=== PATIENT | female | born 1945 | race Caucasian/White ===

== ENCOUNTER 2018-02-24 16:53 | Inpatient (IN) | payer MEDICARE, SELFPAY ==
[2018-02-24] VITALS (8 sets, daily range): BP systolic 116–154; BP diastolic 49–72; PULSE 70–83; RESP 18–28; TEMP 36.9–38.4; O2SAT 90–94; BMI 38.4; BMI 37.5
--- NOTE | 2018-02-24 17:10 | EKG12_ITS ---
Test Reason : SOB Blood Pressure : / mmHG Vent. Rate : 070 BPM Atrial Rate : 070 BPM P-R Int : 178 ms QRS Dur : 092 ms QT Int : 388 ms P-R-T Axes : 050 037 038 degrees QTc Int : 419 ms Normal sinus rhythm Nonspecific ST abnormality Abnormal ECG Confirmed by AMY GEE, ALCIRA ([id number]), science editor RAKAN YOO ([id number] on 02/27/2018 2:29:07 PM Referred By: SONIA Confirmed By:ALCIRA REYES MD
--- NOTE | 2018-02-24 17:10 | RAD_ITS ---
STUDY: X-RAY CHEST REASON FOR EXAM: Female, 72 years old. Shortness of breath with weakness and cough. TECHNIQUE: Single frontal view of the chest. COMPARISON: February 24, 2016 FINDINGS: There is stable hyperexpansion with a mild diffuse interstitial pattern. There is no demonstrated pleural abnormality. There is cardiomegaly unchanged. Normal mediastinum and mary kay. Normal visualized pulmonary arteries. There is atherosclerotic calcification of the aortic arch with tortuosity. Normal visualized thoracic spine. Normal visualized ribs, clavicles, and shoulders. There is no demonstrated abnormality of the visualized soft tissue structures of the upper abdomen. RAD/Chest 1 View (Portable) IMPRESSION: No interval change and no new or acute finding. Electronically Signed: Freddy Koehler MD at 17:54 EST , Service support ,
[2018-02-24 17:34] LABS: Absolute Lymphocyte Count 0.57 X10^3/ul (0.83-4.51); Absolute Neutrophil Count 15.2 X10^3/uL (2.0-7.7); Basophil# 0.03 X10^3/uL; Basophil% 0.2 % (0-1); Differential Indicated SCAN CRITERIA MET; Eosinophil# 0.01 X10^3/uL; Eosinophils% 0.1 % (0-5); Hematocrit 30.8 % (37-47); Hemoglobin 10.3 g/dl (12.0-15.0); Lymphocyte # 0.57 X10^3/ul (4.0); Lymphocyte % 3.3 % (19-41); Mean Corp Hgb Conc 33.4 g/gl (32-36); Mean Corpuscular Hgb 29.7 pg (27.0-32.0); Mean Corpuscular Volume 88.8 fL (81-99); Monocyte# 1.35 X10^3/uL; Monocyte% 7.9 % (0-10); Neutrophil # 15.16 X10^3/uL (2.7-7.7); Neutrophil % 88.4 % (47-70); POSITIVE COUNT NO; POSITIVE DIFFERENTIAL YES; POSITIVE MORPHOLOGY NO; Platelet Count 291 K/mm3 (150-450); RBC Distribution Width CV 14.3 % (11.6-14.6); RBC Distribution Width SD 46.8 fl (35.1-43.9); Red Blood Count 3.47 M/mm3 (4.2-5.4); White Blood Count 17.1 K/mm3 (4.4-11.0)
[2018-02-24] MEDS: 0.9% Normal Saline 1,000 ML 250 ML IV (17:37)
[2018-02-24 17:45] LABS: Mucous, Urine 0 SEEN /hpf (<or=2+); Squamous Epithelial Cells - UA 0 SEEN /hpf (5-10); White Blood Cells 0 SEEN /hpf (0-5)
[2018-02-24 17:45] LABS: Blood Gas Specimen Type VEN; O2 Delivery Device Nasal Can; SITE OTHER; Time Given 1735; VBG BASE EXCESS -1 mmol/L (-1.0-3.5); VBG Bicarbonate 24 mmol/L (22-26); VBG Oxygen Content 25 mmol/L (23-33); VBG PO2 38 mmHg (25-40); VBG SO2 70 % (50-70); VBG pCO2 41.6 mmHg (41-51); VBG pH 7.37 (7.32-7.42)
[2018-02-24 17:47] LABS: International Normalized Ratio 1.1; Prothrombin Time (Protime)PT. 14.3 SECONDS (11.7-14.9)
[2018-02-24 17:48] LABS: Partial Thromboplast Time 34.3 Seconds (24.1-36.2)
[2018-02-24 17:50] LABS: ALB/GLOB Ratio 0.9 RATIO (0.9-2.4); AST(SGOT) 28 U/L (15-37); Alanine Aminotransfer ALT/SGPT 18 U/L (13-56); Albumin, Serum 3.2 g/dL (3.2-5.0); Alkaline Phosphatase 97 U/L (45-117); Anion Gap 9 (5-15); BUN 15 mg/dL (7-18); BUN/Creat Ratio 16.9 RATIO (10-20); Calcium,Total 9.3 mg/dL (8.5-10.1); Chloride 91 mmol/L (98-107); Creatinine, Serum 0.89 mg/dL (0.55-1.02); EST Glomerular Filtration Rate 66 mL/min (>60); Est Glom Filt Rate - Afr Amer 80 mL/min (>60); Estimated Creatinine Clearance 45.85 ml/min; Globulin 3.4 g/dL (2.2-4.2); Glucose 110 mg/dL (74-106); Potassium 3.6 mmol/L (3.5-5.1); Protein, Total 6.6 g/dL (6.4-8.2); Sodium Level 124 mmol/L (136-145)
[2018-02-24 17:55] LABS: Color, Urine Yellow (Yellow); Glucose, Dipstick Normal (Normal); Ketone-Dipstick Negative (Negative); Leukocyte Esterase-Dipstick Negative /ul (Negative); Nitrite-Dipstick Negative (Negative); Occult Blood-Urine 50 /ul (Negative); Protein-Dipstick 15 mg/dl (Negative); Urine Bilirubin Dipstick Negative (Negative); Urine Clarity Clear (Clear); Urine Urobilinogen Normal (Normal)
[2018-02-24 17:56] LABS: Differential Comment SCANNED
[2018-02-24 18:02] LABS: Bacteria 2+ /hpf (None Seen); Red Blood Cells-Urine 0-5 SEEN /hpf (0-5)
[2018-02-24 18:04] LABS: Lactic Acid 1.3 mmol/L (0.4-2.0)
[2018-02-24] MEDS: levoFLOXacin 750 MG Tablet PO (18:06)
--- NOTE | 2018-02-24 20:53 | ED.RN ---
PT ASSISTED UP TO BSC WITH 3 STAFF MEMBERS. PT VERY WEAK AND UNSTABLE ON FEET. PT KNEES BUCKLED SEVERAL TIMES WHILE STANDING.
--- NOTE | 2018-02-24 21:00 | ED.VISSUMM ---
- ER Visit Summary Date of Service: 02/24/18 Chief Complaint: Shortness of breath, wheezing or days. History of Present Illness: The patient is a 72 F who has multiple medical problems. She did not get a flu vaccine nor did she get a Pneumovax vaccine this year. She presents with runny nose fever shortness of breath. She has had intermittent wheezing. Her daughter who is a nurse has been administering aerosol treatments. She complains of fever documented 102 degrees, chills and sweats. She also combines of runny nose, palpitations and dyspnea on exertion. Denies orthopnea PND. She denies chest pain. She does complain of nausea without vomiting or diarrhea. She denies dysuria, frequency, urgency hematuria. She does complain of myalgias. She complains of generalized weakness and vague headache. Past medical history coronary disease, hypertension, acquired pneumonia, bipolar affective disorder and hyponatremia. She also has history of anxiety. Physical Examination: Vital signs remarkable temperature 101.2 and blood pressure 123/72. Initial pulse ox 90% on room air. She has required oxygen since her arrival. She is tachypnic now breathing 20 times a minute and tachycardic when I informed family and patient of her results at 2100. Head is atraumatic normocephalic. Pupils are equal round reactive. Extraocular muscles are intact. TMs are pearly white with landmarks noted. Nares patent with clear drainage. Posterior pharynx without erythema or exudate. Uvula is midline. There is no dysphonia or dysphasia. Trachea is midline. There is no stridor with auscultation of the neck. Heart is regular without murmur, gallop or rub. Lungs reveal scattered end inspiratory rales with fine expiratory wheezing and decreased breath sounds. Abdomen is soft nontender. There is no CVA tenderness noted. Insert lower extremity DVT neuro exam is nonfocal Test Results: EKG was obtained and reveals a sinus rhythm rate of [address]-T wave changes that is artifact. Chest x-ray reveals no acute pulmonary process. White count is elevated at 17.1 thousand with an H&H of 10.3 and 35.8. Sodium is 120 with a chloride of 91. She is on no diuretic. Coags normal. UA is remarkable for bacteria without pyuria and is dip negative for leukoesterase and nitrites. Lactate is normal at 1.3. VBG was obtained and unremarkable. Influenza was positive. Emergency Department Course and Treatment: Sepsis workup was undertaken. Need to rule out bacterial versus viral etiology. Treatment Plan: Patient was initially treated with antibiotics. Since influenza returned positive and there is no evidence of infiltrate she received Tamiflu. The hospitalist was paged since she is not requiring oxygen and will require admission to the hospital Disposition: Medical surgical unit Impression: 1. Respiratory failure with hypoxia 2. Acute influenza infection 3. Sirs 4. Anemia nonspecified 5. Hyponatremia evaluate for SIADH This note was generated with [email or web address] dictation software. It may contain incorrect words, spelling, and punctuation that were not noted in review of the chart prior to signing ED Disposition - Plan for ED Patient: Chief Complaint: Shortness of Breath Referrals: Steve Aguirre [Primary Care Provider] -
--- NOTE | 2018-02-24 21:35 | PCM.HP.STD ---
Problem List (1) Influenzal bronchiolitis Status: Acute History of Present Illness Date of Admission: 02/24/18 Chief Complaint: shortness of breath The patient is a 72 year old F with a significant history of tobacco abuse; hypertension; schizophrenia; bipolar; who presented to the emergency department because of 1 day history of shortness of breath. Associated with her symptoms is multiple falls. Per patient's daughter patient fell 5 times on the day of admission. Patient daughter reported that at home,patient's temperature was 101.2. Associated with her symptoms is chills and fatigue. Patient's daughter is a nurse and she gave patient a breathing treatment before bringing patient to the emergency department. At emergency department patient was found to have a sodium level of 124. Her influenza screen came back positive for influenza A. Before her influenza screen came back patient received Levaquin at the ED. She had elevated protein in her urine and her urine occult blood was positive. 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) Chronic hyponatremia (Chronic) Current chronic use of systemic steroids (Chronic) Allergies No Known Allergies Allergy (Verified 02/24/18 16:55) Home Medications: Ambulatory Orders Medication Instructions Recorded Amlodipine Besylate [Norvasc] 10 mg PO DAILY 02/23/16 Aspirin [Lo-Dose Aspirin EC] 81 mg PO DAILY 02/23/16 Atorvastatin Calcium [Lipitor] 40 mg PO QHS 02/23/16 Benzonatate [Tessalon Perle] 200 mg PO TID PRN PRN 02/23/16 Benztropine [Cogentin] 1 mg PO DAILY 02/23/16 Calcium Carbonate 1,500 mg PO BID 02/23/16 Chlorpromazine HCl 100 mg PO QHS 02/23/16 Fluphenazine HCl [Prolixin] 5 mg PO DAILY 02/23/16 Furosemide [Lasix] 40 mg PO DAILY 02/23/16 Guaifenesin [Mucinex] 600 mg PO BID 02/23/16 [place] Carbonate [Eskalith Cr] 450 mg PO DAILY 02/23/16 Lorazepam [Ativan] 1 mg PO Q8H PRN 02/23/16 Losartan Potassium [Cozaar] 100 mg PO DAILY 02/23/16 Lubiprostone [Amitiza] 24 mcg PO BID 02/23/16 Multivitamin [Daily Multiple 1 each PO DAILY 02/23/16 Vitamin] Esomeprazole Mag Trihydrate 40 mg PO DAILY 12/18/16 [Nexium] Lactobacillus Acidophilus 1 each PO DAILY 12/18/16 [Acidophilus] Diphenhydramine HCl [Banophen] 50 mg PO DAILY PRN 02/24/18 Folic Acid 1 mg PO DAILY 02/24/18 Melatonin 10 mg PO QHS PRN 02/24/18 Metoprolol Tartrate [Lopressor] 100 mg PO BID 02/24/18 Oxaprozin 600 mg PO BID 02/24/18 Oxycodone HCl/Acetaminophen 1 each PO Q6H PRN 02/24/18 [Percocet 5-325 mg Tablet] Surgical History: total knee arthroplasty - Bilateral, - - tubal ligation, multiple right shoulder surgeries Psychiatric History: Anxiety, Bipolar Smoking Status: Current every day smoker Tobacco Use: Cigarettes Alcohol: None - *Family History Offspring History Items: Pulmonary Disease - sarcoidosis, - - adrenal insufficiency Maternal History Items: Heart Disease Paternal History Items: - - Arthritis Review of Systems Constitutional: Reports: Chills, Fever, Malaise, Fatigue HEENT: Denies: Head Aches, Sinus Congestion, Sinus Drainage Cardiovascular: Denies: Chest Pain, Palpitations Respiratory: Reports: Cough, Shortness of Breath, Sputum production Gastrointestinal: Denies: Abdominal Pain, Nausea, Vomiting Genitourinary: Denies: Dysuria Musculoskeletal: Reports: Joint Pain. Denies: Joint Tenderness Skin: Denies: Rash, Wounds Neurological: Denies: Numbness, Tingling, Focal weakness Psychiatric: Reports: Anxiety, Depression Hematologic/ Lymphatic: Denies: Easy Bruising, Easy Bleeding VTE Information - Inpt Only VTE Present on Admission: No VTE Mechan Device Prophylaxis: None VTE Pharm Prophylaxis ordered?: Yes Patient Problems: Active and Suspected Problems Influenzal bronchiolitis (Acute) - Physical Exam General: Alert, Oriented x3, Cooperative HEENT: Atraumatic, PERRLA, EOMI, Normocephalic Neck: Supple, No JVD, Negative Carotid Bruits Lungs: Tachypneic, Wheezes Cardiovascular: Regular rate, No murmurs Abdomen: Bowel Sounds Present, Soft, Non Tender Extremities: No edema, Capillary Refill Less than 3 Seconds Skin: No rashes, No breakdown Musculoskeletal: No Muscle Wasting Neurological: Neuro grossly intact Psych/Mental Status: Normal Affect, Appropriate Vital Signs Temp Pulse Resp BP Pulse Ox 99.7 F H 80 28 H 116/49 L 94 02/24/18 20:11 02/24/18 20:11 02/24/18 20:11 02/24/18 18:00 02/24/18 20:11 Oxygen Flow Rate (L/min) 2 Oxygen Delivery Method Nasal Cannula Weight: 95.254 kg Body Mass Index (BMI) 38.4 Microbiology Past 72 Hours 02/24/18 18:28 Influenza Types A,B Direct FA (SATHISH) - Final Mucosa - Nose Influenzae A Laboratory Tests Past 24 Hrs 02/24/18 02/24/18 02/24/18 17:15 17:15 17:30 WBC 17.1 H RBC 3.47 L Hgb 10.3 L Hct 30.8 L MCV 88.8 MCH 29.7 MCHC 33.4 RDW 14.3 RDW Differential 46.8 H Plt Count 291 MPV 9.0 Immature Gran % (Auto) 0.100 Neut % (Auto) 88.4 H Lymph % (Auto) 3.3 L Holt % (Auto) 7.9 Eos % (Auto) 0.1 Baso % (Auto) 0.2 Absolute Neuts (auto) 15.2 H Absolute Lymphs (auto) 0.57 L Total Counted Not Reportable Differential Comment SCANNED PT 14.3 INR 1.1 APTT 34.3 Specimen Type Sample Site VBG pH VBG pO2 VBG O2 Sat (Calc) VBG O2 Content VBG Base Excess POC Mix VBG pCO2 Pt Tmp O2 Delivery Device Liter Flow Blood Gas Notified Whom Blood Gas Notified Time Sodium 124 L Potassium 3.6 Chloride 91 L Carbon Dioxide 24.0 Anion Gap 9 BUN 15 Creatinine 0.89 Estim Creat Clear Calc 45.85 Est GFR (MDRD) Af Amer 80 Est GFR (MDRD) Non-Af 66 BUN/Creatinine Ratio 16.9 Glucose 110 H Lactic Acid Calcium 9.3 Total Bilirubin 0.30 AST 28 ALT 18 Alkaline Phosphatase 97 Total Protein 6.6 Albumin 3.2 Globulin 3.4 Albumin/Globulin Ratio 0.9 Urine Color Urine Clarity Urine pH Ur Specific [place] Urine Protein Urine Glucose (UA) Urine Ketones Urine Occult Blood Urine Nitrite Urine Bilirubin Urine Urobilinogen Ur Leukocyte Esterase Urine RBC Urine WBC Ur Squamous Epith Cells Urine Bacteria Urine Mucus 02/24/18 02/24/18 02/24/18 17:30 17:39 17:40 WBC RBC Hgb Hct MCV MCH MCHC RDW RDW Differential Plt Count MPV Immature Gran % (Auto) Neut % (Auto) Lymph % (Auto) Holt % (Auto) Eos % (Auto) Baso % (Auto) Absolute Neuts (auto) Absolute Lymphs (auto) Total Counted Differential Comment PT INR APTT Specimen Type IRVING Sample Site OTHER VBG pH 7.37 VBG pO2 38 VBG O2 Sat (Calc) 70 VBG O2 Content 25 VBG Base Excess -1 POC Mix VBG pCO2 Pt Tmp 41.6 O2 Delivery Device Nasal Can Liter Flow 2.0 Blood Gas Notified Whom ED MD Blood Gas Notified Time 1735 Sodium Potassium Chloride Carbon Dioxide Anion Gap BUN Creatinine Estim Creat Clear Calc Est GFR (MDRD) Af Amer Est GFR (MDRD) Non-Af BUN/Creatinine Ratio Glucose Lactic Acid 1.3 Calcium Total Bilirubin AST ALT Alkaline Phosphatase Total Protein Albumin Globulin Albumin/Globulin Ratio Urine Color Yellow Urine Clarity Clear Urine pH 6.0 Ur Specific [place] 1.010 Urine Protein 15 H Urine Glucose (UA) Normal Urine Ketones Negative Urine Occult Blood 50 H Urine Nitrite Negative Urine Bilirubin Negative Urine Urobilinogen Normal Ur Leukocyte Esterase Negative Urine RBC 0-5 SEEN Urine WBC 0 SEEN Ur Squamous Epith Cells 0 SEEN Urine Bacteria 2+ Urine Mucus 0 SEEN Assessment/Plan All Active Problems Influenzal bronchiolitis (Acute) Hypokalemia (Resolved) Norovirus (Resolved) CAP (community acquired pneumonia) (Ruled-out) Acute hyponatremia (Acute) The patient is a 72 year old F with a significant history of obesity; hypertension; schizophrenia; bipolar; who presented to the emergency department because of 1 day history of shortness of breath; multiple falls; fever; wheezing and found to have hyponatremia; and was positive for influenza A consistent with influenza A Bronchiolitis Influenza A bronchiolitis Patient received Tamiflu at emergency department. Tamiflu continued. Because patient was wheezing, steroid was prescribed. Breathing treatment with scheduled DuoNeb and prn albuterol. Tessalon Perles continued Mucinex continued Droplet Precautions Hyponatremia Likely SIADH from influenza. Other differential diagnosis include salt wasting with use of diuresis; thyroid disease;adrenal disease or other. Patient received IV fluids at emergency department. Urine osmolality was done at the emergency department. Her urine osmolality was not actually consistent with SIADH. We will repeat urine osmolality. We will get urine sodium and serum sodium. We will check a TSH and a.m. cortisol. Hold home Lasix Placed on telemetry. Continue influenza treatment as above. Trend BMP. Hypertension Admission her blood pressure was not within goal Amlodipine continued Cozaar continued metoprolol continued Trend blood pressure and adjust blood pressure medication. Schizophrenia/ bipolar Fluphenazine continued Chlorpromazine continued Cogentin continued Benadryl continued [place] continued IBS Lubiprostone continued Because she reports constipation will add Senokot-S Arthritis Oxycodone as needed; and Tylenol as needed continued DVT prophylaxis Lovenox ordered.
[2018-02-24] MEDS: Oseltamivir Phosphate 75 MG Capsule PO (21:38)
--- NOTE | 2018-02-24 21:38 | ED.RN ---
pt took own home meds
[2018-02-24 22:53] LABS: Osmolality, Urine 159 mOsm/KG
[2018-02-24] MEDS: Ipratropium/Albuterol Sulfate 3 ML AMPUL.NEB INHALATION (23:13)
[2018-02-24] MEDS: predniSONE 20 MG Tablet 40 MG PO (23:19)
[2018-02-25] VITALS (17 sets, daily range): BP systolic 129–163; BP diastolic 64–79; PULSE 58–85; RESP 16–18; TEMP 36.3–37.1; O2SAT 89–98
[2018-02-25 06:21] LABS: Anion Gap 11 (5-15); BUN 18 mg/dL (7-18); BUN/Creat Ratio 19.3 RATIO (10-20); Calcium,Total 9.7 mg/dL (8.5-10.1); Chloride 97 mmol/L (98-107); Creatinine, Serum 0.93 mg/dL (0.55-1.02); EST Glomerular Filtration Rate 63 mL/min (>60); Est Glom Filt Rate - Afr Amer 76 mL/min (>60); Glucose 125 mg/dL (74-106); Potassium 3.8 mmol/L (3.5-5.1); Sodium Level 131 mmol/L (136-145)
[2018-02-25] MEDS: Ipratropium/Albuterol Sulfate 3 ML AMPUL.NEB INHALATION ×2 (07:02→13:22)
[2018-02-25 07:12] LABS: Thyroid Stim Hormone (TSH) 0.73 uIU/mL (0.358-3.74)
[2018-02-25] MEDS: Folic Acid 1 MG Tablet PO (10:14)
[2018-02-25] MEDS: Ibuprofen 600 MG Tablet PO ×2 (10:14→15:30)
[2018-02-25] MEDS: Multivitamins,Therapeutic Tablet 1 TABLET PO (10:14)
[2018-02-25] MEDS: Aspirin E.C. 81 MG Tablet PO (10:14)
[2018-02-25] MEDS: predniSONE 20 MG Tablet 40 MG PO (10:15)
[2018-02-25] MEDS: Benztropine 2 MG Tablet 1 MG PO (10:15)
[2018-02-25] MEDS: Pantoprazole Sodium 40 MG Tablet PO (10:16)
[2018-02-25] MEDS: Enoxaparin 40 MG/0.4 ML Syringe SC (10:16)
[2018-02-25] MEDS: amLODIPine 10 MG Tablet PO (10:16)
[2018-02-25] MEDS: Losartan Potassium 100 MG Tablet PO (10:16)
[2018-02-25] MEDS: Metoprolol Tartrate 100 MG Tablet PO ×2 (10:16→21:23)
[2018-02-25] MEDS: Oseltamivir Phosphate 30 MG Capsule PO ×2 (10:17→21:23)
[2018-02-25] MEDS: Calcium Carbonate 500 MG Tablet 1500 MG PO ×2 (10:17→21:22)
[2018-02-25] MEDS: Senna/Docusate Sodium 1 Tablet 2 TABLET PO ×2 (10:17→21:23)
[2018-02-25] MEDS: Lubiprostone 24 MCG Capsule PO ×2 (10:18→21:22)
--- NOTE | 2018-02-25 12:25 | CASEMGMT ---
RAHUL LEE assessment: Face to Face with patient for initial transition planning/care coordination assessment. RAHUL LEE introduced self and role at [facility], pt voices understanding and consents to assessment at this time. Pt is sitting up in bed in no distress at this time. Pt is A/Ox4 at this time and answers all questions appropriately at this time. Care providers, pharmacy, and demographics verified at this time. PCP: Timothy Specialists: [employer] [facility] in [facility] Pharmacy: Dandre Dominguez Insurance: [employer] Prescription Benefit: [employer] Living Will/HPOA: Pt states does have LW/HPOA but they are not currently on file at [facility] at this time. Pt states that her daughter, Lisette Magallon, is HPOA. LNOK: Lisette Magallon, daughter Living Arrangements: Pt states lives with daughter, son-in-law, and grandsons on main level of 2 story home and states no concerns at home at this time. Pt states that her sister comes daily to help care for her. Transportation: Pt states family drives and states no transportation concerns at this time. DME/HHC: Pt has the following DME: cane, walker, ramp into home, w/c, medical alert, hospital bed, bsc, raised toilet seat, shower chair, grab bars and lift chair. CM to follow for home oxygen. Pt states she is homebound and is interested in HHC and would like [facility] at this time. Call to Irma at [facility] and she states they can take pt at this time. Green sheet on chart for possible home oxygen and for new HHC set up. Pt is retired. Pt states smokes less than a pack/day and states does not drink ETOH. Pt states no further concerns/needs at this time. CM to follow for any further discharge planning/needs. Advised pt to ask for CM if any further questions/concerns/needs arise, voices understanding. Plan: Home w/ [facility] HHC and pending home oxygen testing. SStaten RAHUL LEE
--- NOTE | 2018-02-25 17:14 | PCM.PROGNOTE ---
Patient Problems: Active and Suspected Problems Influenzal bronchiolitis (Acute) Subjective: Patient was seen and examined today, she still complaining of cough and some wheezing. Patient is currently on 2 L via nasal cannula, patient has an extensive smoking history, she states she quit smoking 2 days ago. Patient states she was only smoking less than 5 cigarettes a day. - Physical Exam General: Alert, Oriented x3, Cooperative, No apparent distress, Well developed HEENT: Atraumatic, PERRLA, EOMI, Normocephalic Oral: Moist Mucosa Neck: Supple, No JVD, Negative Carotid Bruits, No Nuchal Rigidity, Trachea Midline, Thyroid Normal Size and Texture Lungs: Normal air movement, No rales, Wheezes - Scattered expiratory wheezes bilaterally Cardiovascular: Regular rate, Regular Rhythm, Normal S1, Normal S2, No murmurs, No Ectopic Activity, PMI Normal, No rub noted, No Gallop Abdomen: Bowel Sounds Present, Soft, Non Tender Extremities: No edema, Capillary Refill Less than 3 Seconds Skin: No rashes, No breakdown Musculoskeletal: No Tenderness to Palpation of Joints or Extremities Neurological: Cranial nerves II-XII grossly intact, Neuro grossly intact, Sensory exam intact to light touch and pain, Coordination normal Psych/Mental Status: Normal Affect, Appropriate, Alert and oriented to time, place, person, mood and affect Vital Signs Temp Pulse Resp BP Pulse Ox 97.4 F L 66 18 139/79 H 98 02/25/18 15:18 02/25/18 15:18 02/25/18 15:18 02/25/18 15:18 02/25/18 15:18 Oxygen Flow Rate (L/min) 2 Oxygen Delivery Method Room Air Weight: 96.3 kg Body Mass Index (BMI) 37.5 Intake and Output for Last 24 Hours 02/23/18 02/24/18 02/25/18 23:59 23:59 23:59 Intake Total 360 / 360 300 / 300 Balance 360 / 360 300 / 300 Microbiology Past 72 Hours 02/24/18 17:40 Urine Culture - Preliminary Urine, Clean Catch GNR lactose escape wheel tooth cutter 02/24/18 18:28 Influenza Types A,B Direct FA (SATHISH) - Final Mucosa - Nose Influenzae A Laboratory Tests Past 24 Hrs 02/24/18 02/24/18 02/24/18 17:15 17:15 17:30 WBC 17.1 H RBC 3.47 L Hgb 10.3 L Hct 30.8 L MCV 88.8 MCH 29.7 MCHC 33.4 RDW 14.3 RDW Differential 46.8 H Plt Count 291 MPV 9.0 Immature Gran % (Auto) 0.100 Neut % (Auto) 88.4 H Lymph % (Auto) 3.3 L [place] % (Auto) 7.9 Eos % (Auto) 0.1 Baso % (Auto) 0.2 Absolute Neuts (auto) 15.2 H Absolute Lymphs (auto) 0.57 L Total Counted Not Reportable Differential Comment SCANNED PT 14.3 INR 1.1 APTT 34.3 Specimen Type Sample Site VBG pH VBG pO2 VBG O2 Sat (Calc) VBG O2 Content VBG Base Excess POC Mix VBG pCO2 Pt Tmp O2 Delivery Device Liter Flow Blood Gas Notified Whom Blood Gas Notified Time Sodium 124 L Potassium 3.6 Chloride 91 L Carbon Dioxide 24.0 Anion Gap 9 BUN 15 Creatinine 0.89 Estim Creat Clear Calc 45.85 Est GFR (MDRD) Af Amer 80 Est GFR (MDRD) Non-Af 66 BUN/Creatinine Ratio 16.9 Glucose 110 H Lactic Acid Calcium 9.3 Total Bilirubin 0.30 AST 28 ALT 18 Alkaline Phosphatase 97 Total Protein 6.6 Albumin 3.2 Globulin 3.4 Albumin/Globulin Ratio 0.9 TSH Urine Color Urine Clarity Urine pH Ur Specific Sikes Urine Protein Urine Glucose (UA) Urine Ketones Urine Occult Blood Urine Nitrite Urine Bilirubin Urine Urobilinogen Ur Leukocyte Esterase Urine RBC Urine WBC Ur Squamous Epith Cells Urine Bacteria Urine Mucus Urine Osmolality 02/24/18 02/24/18 02/24/18 17:30 17:39 17:40 WBC RBC Hgb Hct MCV MCH MCHC RDW RDW Differential Plt Count MPV Immature Gran % (Auto) Neut % (Auto) Lymph % (Auto) [place] % (Auto) Eos % (Auto) Baso % (Auto) Absolute Neuts (auto) Absolute Lymphs (auto) Total Counted Differential Comment PT INR APTT Specimen Type IRVING Sample Site OTHER VBG pH 7.37 VBG pO2 38 VBG O2 Sat (Calc) 70 VBG O2 Content 25 VBG Base Excess -1 POC Mix VBG pCO2 Pt Tmp 41.6 O2 Delivery Device Nasal Can Liter Flow 2.0 Blood Gas Notified Whom ED Blood Gas Notified Time 1735 Sodium Potassium Chloride Carbon Dioxide Anion Gap BUN Creatinine Estim Creat Clear Calc Est GFR (MDRD) Af Amer Est GFR (MDRD) Non-Af BUN/Creatinine Ratio Glucose Lactic Acid 1.3 Calcium Total Bilirubin AST ALT Alkaline Phosphatase Total Protein Albumin Globulin Albumin/Globulin Ratio TSH Urine Color Yellow Urine Clarity Clear Urine pH 6.0 Ur Specific S[place] 1.010 Urine Protein 15 H Urine Glucose (UA) Normal Urine Ketones Negative Urine Occult Blood 50 H Urine Nitrite Negative Urine Bilirubin Negative Urine Urobilinogen Normal Ur Leukocyte Esterase Negative Urine RBC 0-5 SEEN Urine WBC 0 SEEN Ur Squamous Epith Cells 0 SEEN Urine Bacteria 2+ Urine Mucus 0 SEEN Urine Osmolality 02/24/18 02/25/18 02/25/18 19:40 05:30 05:30 WBC RBC Hgb Hct MCV MCH MCHC RDW RDW Differential Plt Count MPV Immature Gran % (Auto) Neut % (Auto) Lymph % (Auto) [place] % (Auto) Eos % (Auto) Baso % (Auto) Absolute Neuts (auto) Absolute Lymphs (auto) Total Counted Differential Comment PT INR APTT Specimen Type Sample Site VBG pH VBG pO2 VBG O2 Sat (Calc) VBG O2 Content VBG Base Excess POC Mix VBG pCO2 Pt Tmp O2 Delivery Device Liter Flow Blood Gas Notified Whom Blood Gas Notified Time Sodium 131 L Potassium 3.8 Chloride 97 L Carbon Dioxide 23.0 Anion Gap 11 BUN 18 Creatinine 0.93 Estim Creat Clear Calc 45.90 Est GFR (MDRD) Af Amer 76 Est GFR (MDRD) Non-Af 63 BUN/Creatinine Ratio 19.3 Glucose 125 H Lactic Acid Calcium 9.7 Total Bilirubin AST ALT Alkaline Phosphatase Total Protein Albumin Globulin Albumin/Globulin Ratio TSH 0.73 Urine Color Urine Clarity Urine pH Ur Specific [place] Urine Protein Urine Glucose (UA) Urine Ketones Urine Occult Blood Urine Nitrite Urine Bilirubin Urine Urobilinogen Ur Leukocyte Esterase Urine RBC Urine WBC Ur Squamous Epith Cells Urine Bacteria Urine Mucus Urine Osmolality 159 Medical Necessity - Tobacco Use Smoking Status: Current every day smoker Tobacco Use: Cigarettes Assessment/Plan All Active Problems Influenzal bronchiolitis (Acute) Hypokalemia (Resolved) Norovirus (Resolved) CAP (community acquired pneumonia) (Ruled-out) Acute hyponatremia (Acute) #1 acute bronchitis secondary to influenza A -continue Tamiflu, aerosol treatments, I have added IV Solu-Medrol due to wheezing. #2 acute cystitis-urine cultures growing out gram-negative moiz lactose escape wheel tooth cutter, I will place the patient on Keflex 500 mg 3 times daily #3 hypoxia-secondary to acute bronchitis from influenza A, continue to wean oxygen if able #4 bipolar disorder #5 hyponatremia-etiology unclear, sodium today was 131. #6 hyperlipidemia #7 hypertension #8 anxiety disorder-chronic Code Visit Inpatient E&M: [id number] Subs Hosp L2
[2018-02-25] MEDS: BENZOCAINE/MENTHOL 1 LOZENGE 2 LOZENGE MUCOUS MEM ×3 (17:59→21:24)
[2018-02-25] MEDS: LORazepam 1 MG Tablet PO (17:59)
[2018-02-25] MEDS: Cephalexin 500 MG Capsule PO (18:00)
[2018-02-25] MEDS: Lithium Carbonate 150 MG Capsule 450 MG PO (21:23)
[2018-02-25] MEDS: ChlorproMAZINE 25 MG Tablet 100 MG PO (21:23)
[2018-02-25] MEDS: Atorvastatin Calcium 40 MG Tablet PO (21:23)
[2018-02-25] MEDS: MELATONIN 10 MG TABLET PO (22:18)
[2018-02-26] VITALS (16 sets, daily range): BP systolic 107–153; BP diastolic 42–83; PULSE 49–77; RESP 16–20; TEMP 35.7–36.6; O2SAT 94–100
[2018-02-26] MEDS: BENZOCAINE/MENTHOL 1 LOZENGE 2 LOZENGE MUCOUS MEM ×3 (00:41→21:52)
[2018-02-26] MEDS: LORazepam 1 MG Tablet PO ×3 (01:29→22:05)
[2018-02-26] MEDS: Cephalexin 500 MG Capsule PO ×3 (05:53→21:38)
[2018-02-26 06:26] LABS: Absolute Lymphocyte Count 0.73 X10^3/ul (0.83-4.51); Absolute Neutrophil Count 11.5 X10^3/uL (2.0-7.7); Basophil# 0.01 X10^3/uL; Basophil% 0.1 % (0-1); Hematocrit 31.5 % (37-47); Lymphocyte # 0.73 X10^3/ul (4.0); Lymphocyte % 5.6 % (19-41); Mean Corp Hgb Conc 31.7 g/gl (32-36); Mean Corpuscular Hgb 28.9 pg (27.0-32.0); Mean Platelet Vol. 9.2 fl (6.2-12.0); Monocyte# 0.71 X10^3/uL; Monocyte% 5.5 % (0-10); Neutrophil # 11.52 X10^3/uL (2.7-7.7); Neutrophil % 88.6 % (47-70); Platelet Count 328 K/mm3 (150-450); RBC Distribution Width CV 14.7 % (11.6-14.6); RBC Distribution Width SD 48.9 fl (35.1-43.9); Red Blood Count 3.46 M/mm3 (4.2-5.4)
[2018-02-26 07:02] LABS: POSITIVE COUNT NO; POSITIVE DIFFERENTIAL NO; POSITIVE MORPHOLOGY NO
[2018-02-26] MEDS: Benztropine 2 MG Tablet 1 MG PO (09:21)
[2018-02-26] MEDS: Losartan Potassium 100 MG Tablet PO (09:22)
[2018-02-26] MEDS: Pantoprazole Sodium 40 MG Tablet PO (09:22)
[2018-02-26] MEDS: amLODIPine 10 MG Tablet PO (09:23)
[2018-02-26] MEDS: Lubiprostone 24 MCG Capsule PO ×2 (09:23→21:39)
[2018-02-26] MEDS: Metoprolol Tartrate 100 MG Tablet PO ×2 (09:24→21:35)
[2018-02-26] MEDS: Folic Acid 1 MG Tablet PO (09:25)
[2018-02-26] MEDS: Oseltamivir Phosphate 30 MG Capsule PO ×2 (09:25→21:37)
[2018-02-26] MEDS: Senna/Docusate Sodium 1 Tablet 2 TABLET PO ×2 (09:26→21:38)
[2018-02-26] MEDS: Aspirin E.C. 81 MG Tablet PO (09:26)
[2018-02-26] MEDS: Multivitamins,Therapeutic Tablet 1 TABLET PO (09:26)
[2018-02-26] MEDS: Calcium Carbonate 500 MG Tablet 1500 MG PO ×2 (09:27→21:39)
[2018-02-26] MEDS: Ibuprofen 600 MG Tablet PO ×3 (09:27→18:05)
[2018-02-26] MEDS: Enoxaparin 40 MG/0.4 ML Syringe SC (09:29)
[2018-02-26] MEDS: Nystatin Powder 15gm Bottle 1 APPLIC TOPICAL ×2 (09:29→21:35)
--- NOTE | 2018-02-26 09:30 | NURSING ---
SpO2 at rest on RA 95% SpO2 w/amb 10 feet on RA 83%, pt c/o severe SOB Dr. Szymanski notified
[2018-02-26] MEDS: Ipratropium/Albuterol Sulfate 3 ML AMPUL.NEB INHALATION ×2 (12:55→20:17)
--- NOTE | 2018-02-26 15:45 | PN_ITS ---
Patient Problems: Active and Suspected Problems Influenzal bronchiolitis (Acute) Subjective: Patient was seen and examined today, urine culture was positive for Klebsiella pneumoniae. Patient does not complain of any increased shortness of breath or chest pain. On ambulation today on room air, patient's pulse ox dropped to 83%. - Physical Exam General: Alert, Oriented x3, Cooperative, No apparent distress, Well developed HEENT: Atraumatic, PERRLA, EOMI, Normocephalic Oral: Moist Mucosa Neck: Supple, No Nuchal Rigidity, Trachea Midline, Thyroid Normal Size and Texture Lungs: No rhonchi, No rales, Diminished, Wheezes - Scattered expiratory wheezes are noted bilaterally Cardiovascular: Regular rate, Regular Rhythm, Normal S1, Normal S2, No murmurs, PMI Normal, No rub noted, No Gallop Abdomen: Bowel Sounds Present, Soft, Non Tender, Non-Distended, No hernias noted Extremities: No clubbing, No cyanosis, No edema, Capillary Refill Less than 3 Seconds Skin: No rashes, No breakdown Musculoskeletal: No Tenderness to Palpation of Joints or Extremities Neurological: Cranial nerves II-XII grossly intact, Neuro grossly intact, Sensory exam intact to light touch and pain, Coordination normal Psych/Mental Status: Normal Affect, Appropriate, Alert and oriented to time, place, person, mood and affect Vital Signs Temp Pulse Resp BP Pulse Ox 96.3 F L 68 18 107/54 L 97 02/26/18 14:00 02/26/18 14:00 02/26/18 14:00 02/26/18 14:00 02/26/18 14:00 Oxygen Flow Rate (L/min) 2 Oxygen Delivery Method Nasal Cannula Weight: 96.3 kg Body Mass Index (BMI) 37.5 Intake and Output for Last 24 Hours 02/24/18 02/25/18 02/26/18 23:59 23:59 23:59 Intake Total 360 / 360 1180 / 1180 720 / 720 Balance 360 / 360 1180 / 1180 720 / 720 Microbiology Past 72 Hours 02/24/18 17:40 Urine Culture - Final Urine, Clean Catch Klebsiella pneumoniae sp pneum 02/24/18 18:28 Influenza Types A,B Direct FA (SATHISH) - Final Mucosa - Nose Influenzae A Laboratory Tests Past 24 Hrs 02/26/18 05:45 WBC 13.0 H RBC 3.46 L Hgb 10.0 L Hct 31.5 L MCV 91.0 MCH 28.9 MCHC 31.7 L RDW 14.7 H RDW Differential 48.9 H Plt Count 328 MPV 9.2 Immature Gran % (Auto) 0.200 Neut % (Auto) 88.6 H Lymph % (Auto) 5.6 L [place] % (Auto) 5.5 Eos % (Auto) 0.0 Baso % (Auto) 0.1 Absolute Neuts (auto) 11.5 H Absolute Lymphs (auto) 0.73 L Total Counted Not Reportable Medical Necessity - Tobacco Use Smoking Status: Current every day smoker Tobacco Use: Cigarettes Assessment/Plan All Active Problems Influenzal bronchiolitis (Acute) Hypokalemia (Resolved) Norovirus (Resolved) CAP (community acquired pneumonia) (Ruled-out) Acute hyponatremia (Acute) #1 acute bronchitis secondary to influenza A -continue Tamiflu, aerosol treatments and IV Solu-Medrol #2 acute cystitis present on admission-secondary to Klebsiella pneumoniae- continue Keflex 500 mg 3 times a day p.o. #3 hypoxia-secondary to acute bronchitis from influenza A, continue to wean oxygen if able, patient may need temporary oxygen at home when discharged #4 bipolar disorder #5 hyponatremia-etiology unclear #6 hyperlipidemia #7 hypertension #8 anxiety disorder-chronic Code Visit Inpatient E&M: 85420 Subs Hosp L2
[2018-02-26] MEDS: Atorvastatin Calcium 40 MG Tablet PO (21:36)
[2018-02-26] MEDS: ChlorproMAZINE 25 MG Tablet 100 MG PO (21:37)
[2018-02-26] MEDS: 0.9% NaCl Peripheral Flush Adult/Peds IV ×2 (21:46→21:48)
[2018-02-26] MEDS: Lithium Carbonate 150 MG Capsule 450 MG PO (22:05)
[2018-02-26] MEDS: oxyCODONE 5 MG Tablet PO (22:05)
[2018-02-27] VITALS (12 sets, daily range): BP systolic 129–138; BP diastolic 61–67; PULSE 53–89; RESP 16–22; TEMP 36.7; O2SAT 86–98
[2018-02-27] MEDS: Cephalexin 500 MG Capsule PO ×2 (05:19→13:34)
[2018-02-27] MEDS: Ibuprofen 600 MG Tablet PO ×2 (08:46→13:34)
[2018-02-27] MEDS: Folic Acid 1 MG Tablet PO (08:46)
[2018-02-27] MEDS: Benztropine 2 MG Tablet 1 MG PO (08:46)
[2018-02-27] MEDS: Aspirin E.C. 81 MG Tablet PO (08:47)
[2018-02-27] MEDS: Losartan Potassium 100 MG Tablet PO (08:47)
[2018-02-27] MEDS: Multivitamins,Therapeutic Tablet 1 TABLET PO (08:47)
[2018-02-27] MEDS: Pantoprazole Sodium 40 MG Tablet PO (08:47)
[2018-02-27] MEDS: Senna/Docusate Sodium 1 Tablet 2 TABLET PO (08:47)
[2018-02-27] MEDS: Calcium Carbonate 500 MG Tablet 1500 MG PO (08:47)
[2018-02-27] MEDS: Lubiprostone 24 MCG Capsule PO (08:48)
[2018-02-27] MEDS: amLODIPine 10 MG Tablet PO (08:48)
[2018-02-27] MEDS: Metoprolol Tartrate 100 MG Tablet PO (08:48)
[2018-02-27] MEDS: Enoxaparin 40 MG/0.4 ML Syringe SC (08:49)
[2018-02-27] MEDS: Nystatin Powder 15gm Bottle 1 APPLIC TOPICAL (08:49)
[2018-02-27] MEDS: Oseltamivir Phosphate 30 MG Capsule PO (08:50)
--- NOTE | 2018-02-27 11:58 | DCINST_ITS ---
- Discharge Diagnoses Current Active Problems: Current Active and Chronic Problems Influenzal bronchiolitis (Acute) You will use the following diet at home:: No restrictions Your food should be the consistency of: Regular Your liquids should be the consistency of: Regular/Thin Discharge Activity: Return to Normal Activity Additional Instructions: do not smoke Allergies/Adverse Reactions: Allergies No Known Allergies Allergy (Verified 02/24/18 16:55) Medications to take at Discharge Amlodipine Besylate [Norvasc] 10 mg PO DAILY 02/23/16 Aspirin [Lo-Dose Aspirin EC] 81 mg PO DAILY 02/23/16 Atorvastatin Calcium [Lipitor] 40 mg PO QHS 02/23/16 Benzonatate [Tessalon Perle] 200 mg PO TID PRN PRN 02/23/16 Benztropine [Cogentin] 1 mg PO DAILY 02/23/16 Calcium Carbonate 1,500 mg PO BID 02/23/16 Chlorpromazine HCl 100 mg PO QHS 02/23/16 Fluphenazine HCl [Prolixin] 5 mg PO DAILY 02/23/16 Furosemide [Lasix] 40 mg PO DAILY 02/23/16 Guaifenesin [Mucinex] 600 mg PO BID 02/23/16 [place] Carbonate [Eskalith Cr] 450 mg PO DAILY 02/23/16 Lorazepam [Ativan] 1 mg PO Q8H PRN 02/23/16 Losartan Potassium [Cozaar] 100 mg PO DAILY 02/23/16 Lubiprostone [Amitiza] 24 mcg PO BID 02/23/16 Multivitamin [Daily Multiple Vitamin] 1 each PO DAILY 02/23/16 Esomeprazole Mag Trihydrate [Nexium] 40 mg PO DAILY 12/18/16 Lactobacillus Acidophilus [Acidophilus] 1 each PO DAILY 12/18/16 Diphenhydramine HCl [Banophen] 50 mg PO DAILY PRN 02/24/18 Folic Acid 1 mg PO DAILY 02/24/18 Melatonin 10 mg PO QHS PRN 02/24/18 Metoprolol Tartrate [Lopressor] 100 mg PO BID 02/24/18 Oxaprozin 600 mg PO BID 02/24/18 Oxycodone HCl/Acetaminophen [Percocet 5-325 mg Tablet] 1 each PO Q6H PRN 02/24/18 Cephalexin [Keflex] 500 mg PO TID #15 cap 02/27/18 Nystatin Powder [Mycostatin Powder] 1 applic TOPICAL BID bottle 02/27/18 Oseltamivir Phosphate [Tamiflu] 30 mg PO BID #3 cap 02/27/18 Prednisone 10 mg PO UD #30 tab 02/27/18 The following prescriptions were given: Prednisone 10 mg PO UD #30 tab Oseltamivir Phosphate [Tamiflu] 30 mg PO BID #3 cap Cephalexin [Keflex] 500 mg PO TID #15 cap Primary Care Physician: Steve Aguirre [Primary Care Provider] - Please follow up with your Primary Care Physician in: in one week Test Results: Test results from this visit will be discussed in further detail at your follow- up appointment, if applicable.
--- NOTE | 2018-02-27 12:52 | CASEMGMT ---
Per Sebastian KAY, pt qualified for home oxygen at this time. Pt previously had a preference for [facility] and referral faxed to [facility] at this time. Ria KAY CM
[2018-02-27] MEDS: Ipratropium/Albuterol Sulfate 3 ML AMPUL.NEB INHALATION (13:03)
[2018-02-27] MEDS: LORazepam 1 MG Tablet PO (13:38)
[2018-02-27] MEDS: BENZOCAINE/MENTHOL 1 LOZENGE 2 LOZENGE MUCOUS MEM (15:13)
--- NOTE | 2018-02-28 08:13 | DS.PCM_ITS ---
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 She also complained of fever at 102 degrees at home with chills and sweats. Workup included an EKG which showed a sinus rhythm of [address]-T wave changes, chest x-ray revealed no acute pulmonary process, white count was elevated at 17.1, hemoglobin was 10.3, sodium was 120, chloride was 91. UA was remarkable for bacteria without white cells, lactic acid was normal at 1.3. Influenza test was positive for influenza A. Patient's pulse ox on room air was 90% but it was noted in the ER that she was tachypneic. Patient was admitted to PCU, placed on aerosol treatments, oxygen saturation was monitored, she was placed on antibiotics for acute cystitis-bacterial cultures grew out Klebsiella pneumoniae. Patient continued to have wheezing during her hospital stay, she was ambulated and was found to be hypoxic on ambulation with a pulse ox of 86 on room air. Ambulating with 2 L of O2 patient was 93%. On 02/27/18, patient was seen and examined: On examination she appeared in good health and spirits. Vital signs as documented. Skin warm and dry and without overt rashes. Neck without JVD. Lungs-decreased breath sounds were noted bilaterally. Heart exam notable for regular rhythm, normal sounds and absence of murmurs, rubs or gallops. Abdomen unremarkable and without evidence of organomegaly, masses, or abdominal aortic enlargement. Extremities nonedematous. Neuro: Cranial nerves II through XII are grossly intact, no focal motor deficits were noted, sensation to light touch and pinprick is intact. Psych: Patient is alert and oriented x3, she does not appear anxious or depressed On 02/27/18, patient was seen and examined and felt to be in stable condition for discharge home - Physical Exam Vital Signs Temp Pulse Resp BP Pulse Ox 98.1 F 70 22 H 138/67 H 96 02/27/18 07:54 02/27/18 13:04 02/27/18 13:04 02/27/18 07:54 02/27/18 12:39 Oxygen Flow Rate (L/min) [ 2 AMBULATION with Oxygen] Oxygen Flow Rate (L/min) [ 0 AMBULATING on Room Air] Oxygen Flow Rate (L/min) [At 0 REST on Room Air] Oxygen Flow Rate (L/min) 2 Oxygen Delivery Method Nasal Cannula Weight: 96.3 kg Body Mass Index (BMI) 37.5 Intake and Output for Last 24 Hours 02/26/18 02/27/18 02/28/18 23:59 23:59 23:59 Intake Total 1070 / 1070 220 / 220 Balance 1070 / 1070 220 / 220 Microbiology Past 72 Hours 02/24/18 17:15 Blood Culture - Preliminary Blood Culture (Wb) - Anticubital Left No growth in 48 hours. 02/24/18 17:10 Blood Culture - Preliminary Blood Culture (Wb) - Left Forearm No growth in 48 hours. 02/24/18 17:40 Urine Culture - Final Urine, Clean Catch Klebsiella pneumoniae sp pneum Discharge Activity: Return to Normal Activity Home Medications: Medications to take at Discharge Amlodipine Besylate [Norvasc] 10 mg PO DAILY 02/23/16 Aspirin [Lo-Dose Aspirin EC] 81 mg PO DAILY 02/23/16 Atorvastatin Calcium [Lipitor] 40 mg PO QHS 02/23/16 Benzonatate [Tessalon Perle] 200 mg PO TID PRN PRN 02/23/16 Benztropine [Cogentin] 1 mg PO DAILY 02/23/16 Calcium Carbonate 1,500 mg PO BID 02/23/16 Chlorpromazine HCl 100 mg PO QHS 02/23/16 Fluphenazine HCl [Prolixin] 5 mg PO DAILY 02/23/16 Furosemide [Lasix] 40 mg PO DAILY 02/23/16 Guaifenesin [Mucinex] 600 mg PO BID 02/23/[address] [place] Carbonate [Eskalith Cr] 450 mg PO DAILY 02/23/16 Lorazepam [Ativan] 1 mg PO Q8H PRN 02/23/16 Losartan Potassium [Cozaar] 100 mg PO DAILY 02/23/16 Lubiprostone [Amitiza] 24 mcg PO BID 02/23/16 Multivitamin [Daily Multiple Vitamin] 1 each PO DAILY 02/23/16 Esomeprazole Mag Trihydrate [Nexium] 40 mg PO DAILY 12/18/16 Lactobacillus Acidophilus [Acidophilus] 1 each PO DAILY 12/18/16 Diphenhydramine HCl [Banophen] 50 mg PO DAILY PRN 02/24/18 Folic Acid 1 mg PO DAILY 02/24/18 Melatonin 10 mg PO QHS PRN 02/24/18 Metoprolol Tartrate [Lopressor] 100 mg PO BID 02/24/18 Oxaprozin 600 mg PO BID 02/24/18 Oxycodone HCl/Acetaminophen [Percocet 5-325 mg Tablet] 1 each PO Q6H PRN 02/24/18 Cephalexin [Keflex] 500 mg PO TID #15 cap 02/27/18 Nystatin Powder [Mycostatin Powder] 1 applic TOPICAL BID bottle 02/27/18 Oseltamivir Phosphate [Tamiflu] 30 mg PO BID #3 cap 02/27/18 Prednisone 10 mg PO UD #30 tab 02/27/18 Following Prescrptions Were Given to Patient: Prednisone 10 mg PO UD #30 tab Oseltamivir Phosphate [Tamiflu] 30 mg PO BID #3 cap Cephalexin [Keflex] 500 mg PO TID #15 cap Primary Care Physician: Steve Aguirre [Primary Care Provider] - Please follow up with your Primary Care Physician in: in one week Disposition: Home Minutes spent on discharge:: 32 Patient Condition:: Stable Medical Necessity - Tobacco Use Smoking Status: Current every day smoker Tobacco Use: Cigarettes Meaningful Use Info Meaningful Use Diagnoses (Choose all that apply): None applicable Code Visit Inpatient E&M: 35996 Disch Hosp
--- NOTE | 2018-02-28 16:34 | CASEMGMT ---
RAHUL CM DC PHONE CALL DC Date: 02/27/18 DC Disposition: Home LACE/STRATA: 12/29 Attempted call to cell number, message did not identify name so no message left @ this time. Maribel COLESN RN AC
== END 2018-02-27 15:49 | disposition home or self-care (01) | DRG 194 ==
LOC: ED 17:37 → PCU 22:17
PROVIDERS: Admitting Provider Hospitalist; Emergency Provider Emergency Medicine; Family Provider Internal Medicine; PCP Internal Medicine; Visit Provider Internal Medicine
DX: J10.1 Influenza due to other identified influenza virus with other respiratory manifestations (principal); N30.00 Acute cystitis without hematuria; E87.1 Hypo-osmolality and hyponatremia; F31.9 Bipolar disorder, unspecified; B96.1 Klebsiella pneumoniae [K. pneumoniae] as the cause of diseases classified elsewhere; R09.02 Hypoxemia; E78.5 Hyperlipidemia, unspecified; I10 Essential (primary) hypertension; F41.9 Anxiety disorder, unspecified; F17.210 Nicotine dependence, cigarettes, uncomplicated; D64.9 Anemia, unspecified; Z79.899 Other long term (current) drug therapy; K59.03 Drug induced constipation; T40.2X5A Adverse effect of other opioids, initial encounter; K58.9 Irritable bowel syndrome, unspecified
CPT/HCPCS: 36415; 71045; 80048; 80053; 81001; 82803; 83605; 83935; 84443; 85025; 85610; 85730; 87040; 87077; 87086; 87088; 87186; 87804; 93005; 94640; 97110; 97116; 97162; 97166; 97530; 97535; 97802; 99251; 99285; 99406; J7030; A4216; G0463

== ENCOUNTER 2018-04-21 13:41 | Emergency (ER) | payer MEDICARE, SELFPAY ==
[2018-02-24 22:46] VITALS: BMI 37.5
[2018-04-21] VITALS (14 sets, daily range): BP systolic 80–122; BP diastolic 42–99; PULSE 35–82; RESP 16–20; TEMP 36.4–36.6; O2SAT 95–98; BMI 39.5
--- NOTE | 2018-04-21 14:35 | CT_ITS ---
STUDY: CT BRAIN WITHOUT CONTRAST REASON FOR EXAM: Female, 72 years old. Confusion, lethargy, cough, recent hospitalization for influenza RADIATION DOSAGE (If Supplied By Facility): CTDIvol = ( 44.99 ) mGy, DLP = ( 796.11 ) mGycm TECHNIQUE: Transaxial CT imaging of the brain was performed without administration of intravenous contrast material. Individualized dose optimization techniques were used for this CT. COMPARISON: 12/18/2016 FINDINGS: Normal soft tissue structures. Normal calvarium. There is atherosclerosis of the carotid siphons. Normal size ventricles and extra-axial spaces for the patient's age. Normal white matter tracts of the cerebral hemispheres. Normal basal ganglia and thalami. Normal brainstem. Normal cerebellum. There is no intracranial hemorrhage. There are no findings of an acute ischemic infarction. Normal visualized paranasal sinuses. CT/Brain/Head without Contrast IMPRESSION: No acute intracranial hemorrhage or mass effect. Stable exam. Electronically Signed: Harris López MD at 16:54 EST , Service support ,
--- NOTE | 2018-04-21 14:35 | EKG12_ITS ---
Test Reason : Blood Pressure : / mmHG Vent. Rate : 038 BPM Atrial Rate : 038 BPM P-R Int : 170 ms QRS Dur : 094 ms QT Int : 532 ms P-R-T Axes : 007 046 042 degrees QTc Int : 422 ms Marked sinus bradycardia with Premature atrial complexes Low voltage QRS Abnormal ECG Confirmed by JUAN GEE, CHELSY ([id number]), video news editor KEVYN SINCLAIR ([id number] on 04/23/2018 5:00:17 PM Referred By: LEDY Confirmed By:CHELSY MARTINEZ MD
--- NOTE | 2018-04-21 15:30 | RAD_ITS ---
STUDY: X-RAY CHEST REASON FOR EXAM: Female, 72 years old. Cough and wheezing, COPD TECHNIQUE: AP COMPARISON: 02/24/2018 FINDINGS: The lungs are less expanded as compared to the prior study. There is faint groundglass and reticular opacity in the right lung base, new since the prior study. Fibrotic scarring in the left midlung is stable. There is no demonstrated pleural abnormality. There is mild cardiac enlargement. Normal mediastinum and mary kay. Normal visualized pulmonary arteries. Normal visualized aortic arch and descending thoracic aorta. Chronic deformity of the right humeral head/shaft is stable. Left shoulder replacement noted. There is no demonstrated abnormality of the visualized soft tissue structures of the upper abdomen. RAD/Chest 1 View (Portable) IMPRESSION: Developing right lower lobe infiltrate could represent pneumonia. Electronically Signed: Harris López MD at 16:56 EST , Service support ,
[2018-04-21 15:35] LABS: Absolute Lymphocyte Count 1.05 X10^3/ul (0.83-4.51); Absolute Neutrophil Count 9.9 X10^3/uL (2.0-7.7); Basophil# 0.02 X10^3/uL; Basophil% 0.2 % (0-1); Eosinophil# 0.21 X10^3/uL; Eosinophils% 1.8 % (0-5); Hematocrit 29.2 % (37-47); Hemoglobin 9.4 g/dl (12.0-15.0); Lymphocyte # 1.05 X10^3/ul (4.0); Lymphocyte % 8.8 % (19-41); Mean Corp Hgb Conc 32.2 g/gl (32-36); Mean Corpuscular Hgb 29.4 pg (27.0-32.0); Mean Corpuscular Volume 91.3 fL (81-99); Mean Platelet Vol. 9.9 fl (6.2-12.0); Monocyte# 0.79 X10^3/uL; Monocyte% 6.6 % (0-10); Neutrophil # 9.85 X10^3/uL (2.7-7.7); Neutrophil % 82.4 % (47-70); Platelet Count 316 K/mm3 (150-450); RBC Distribution Width CV 14.3 % (11.6-14.6); RBC Distribution Width SD 46.3 fl (35.1-43.9); White Blood Count 11.9 K/mm3 (4.4-11.0)
[2018-04-21 15:36] LABS: Allen Test POS; Base Excess -2 mmol/L (-2 to +2); Bicarbonate 21.7 mmol/L (22-26); Blood Gas Specimen Type ART; O2 Delivery Device Nasal Can; PO2 101 mmHG (75-100); SITE R Radial; SO2 98 % (95-99); Time Given 1525; Total Carbon Dioxide 23 mmol/L; pH 7.44 (7.35-7.45)
[2018-04-21 15:38] LABS: POSITIVE COUNT NO; POSITIVE DIFFERENTIAL NO; POSITIVE MORPHOLOGY NO
[2018-04-21 15:42] LABS: Prothrombin Time (Protime)PT. 13.3 SECONDS (11.7-14.9)
[2018-04-21 15:43] LABS: Partial Thromboplast Time 27.5 Seconds (24.1-36.2)
[2018-04-21] MEDS: 0.9% Normal Saline 1,000 ML 999 ML IV (15:50)
[2018-04-21 15:54] LABS: ALB/GLOB Ratio 0.9 RATIO (0.9-2.4); AST(SGOT) 22 U/L (15-37); Alanine Aminotransfer ALT/SGPT 19 U/L (13-56); Albumin, Serum 3.1 g/dL (3.2-5.0); Alkaline Phosphatase 92 U/L (45-117); Anion Gap 12 (5-15); BUN 22 mg/dL (7-18); BUN/Creat Ratio 19.3 RATIO (10-20); Calcium,Total 8.9 mg/dL (8.5-10.1); Chloride 93 mmol/L (98-107); Creatinine, Serum 1.14 mg/dL (0.55-1.02); EST Glomerular Filtration Rate 50 mL/min (>60); Est Glom Filt Rate - Afr Amer 60 mL/min (>60); Globulin 3.3 g/dL (2.2-4.2); Glucose 113 mg/dL (74-106); Lipase 46 U/L (73-393); Potassium 3.9 mmol/L (3.5-5.1); Protein, Total 6.4 g/dL (6.4-8.2); Sodium Level 129 mmol/L (136-145)
[2018-04-21 15:56] LABS: Ammonia < 10.0 umol/L (11-32); Lactic Acid 1.3 mmol/L (0.4-2.0)
[2018-04-21 16:07] LABS: Alcohol, Blood (Medical)-Serum < 3.0 mg/dL
--- NOTE | 2018-04-21 16:10 | CPS ---
ABG values given to Dr. Mendez.
--- NOTE | 2018-04-21 16:45 | ED.RN ---
PT APPEARS TO BE IN AFIB ON MONITOR, THEN WILL HAVE RUN WITH PRESENT P WAVES AND THEN BACK TO AFIB. DR VILLAFANA AWARE
--- NOTE | 2018-04-21 17:00 | ED.RN ---
moist cough. crackles in lungs. fluids clamped at this time. bp low. dr nascimento aware. new orders
--- NOTE | 2018-04-21 17:09 | EKG12_ITS ---
Test Reason : REPEAT-JERMAINE Blood Pressure : / mmHG Vent. Rate : 037 BPM Atrial Rate : 357 BPM P-R Int : 000 ms QRS Dur : 092 ms QT Int : 548 ms P-R-T Axes : 000 050 049 degrees QTc Int : 430 ms Atrial fibrillation with slow ventricular response with a competing junctional pacemaker Low voltage QRS Abnormal ECG Confirmed by JUAN GEE, CHELSY ([id number]), restaurant expeditor KEVYN SINCLAIR ([id number]) on 04/23/2018 5:02:04 PM Referred By: LEDY Confirmed By:CHELSY MARTINEZ MD
[2018-04-21 17:11] LABS: Magnesium 1.9 mg/dL (1.6-2.6)
[2018-04-21 17:13] LABS: Bacteria 0 SEEN /hpf (None Seen); Mucous, Urine 0 SEEN /hpf (<or=2+); Red Blood Cells-Urine 0 SEEN /hpf (0-5)
[2018-04-21 17:15] LABS: Color, Urine Yellow (Yellow); Glucose, Dipstick Normal (Normal); Ketone-Dipstick Negative (Negative); Leukocyte Esterase-Dipstick 100 /ul (Negative); Nitrite-Dipstick Negative (Negative); Occult Blood-Urine Negative /ul (Negative); Protein-Dipstick Negative (Negative); Specific Gravity, Urine 1.015 (1.002-1.030); Urine Bilirubin Dipstick Negative (Negative); Urine Clarity Clear (Clear); Urine Urobilinogen Normal (Normal)
[2018-04-21 17:23] LABS: Squamous Epithelial Cells - UA 0-5 SEEN /hpf (5-10); White Blood Cells 0-5 SEEN /hpf (0-5)
[2018-04-21 17:25] LABS: Amphetamine Urine VISTA NEGATIVE (<1000 ng/mL); Barbiturate Urine VISTA NEGATIVE (< 200 ng/mL); Benzodiazepine Urine VISTA POSITIVE (< 200 ng/mL); Cocaine Urine VISTA NEGATIVE (< 300 ng/mL); Ecstacy Urine VISTA NEGATIVE (< 500 ng/mL); Methadone Urine VISTA NEGATIVE (< 300 ng/mL); PCP Urine VISTA NEGATIVE (< 25 ng/mL); THC Urine VISTA NEGATIVE (< 50 ng/mL); Vista UDS pH Range 6
[2018-04-21] MEDS: Furosemide 40 MG/4 ML Vial IV (17:28)
[2018-04-21] MEDS: Atropine Sulfate 1 MG/10 ML Syringe IV (17:46)
--- NOTE | 2018-04-21 18:23 | ED.VISSUMM ---
- ER Visit Summary Date of Service: 04/21/18 Chief Complaint: Altered mental status and cough History of Present Illness: The patient is a 72 F who proximal he 1 week ago was noted by family to be slightly confused and more off balance. She has chronic bronchitis and has a chronic cough family thought maybe was worse and she went saw her primary care physician was given a dose of Augmentin. This was started 2 days ago. Family states that today she is more sleepy cough is worse and more moist.. She said 3-4 pound weight gain. Her feet are more swollen. They note that she is falling asleep easily and more confused. There was concern that the patient took Benadryl with narcotics this morning but family states that that is not abnormal for her and she took half the normal dose of Benadryl. No reported fevers. She has had 2 prior heart catheterization the reportedly normal. There is a possibility of cardiomyopathy but unclear if she has this from the family. She sees Dr. Aguirre cardiology with [facility]. Stress test August 2017 was normal. Physical Examination: Gen: Well-nourished well-developed morbidly obese Head: Normocephalic atraumatic Eyes: Perrl EOMI ENT: TMs clear no rhinorrhea moist mucous membranes Neck: Supple no lymphadenopathy no JVD nontender CVS: Regular rate and cardiac rhythm no murmurs normal S1-S2 Respiratory: No distress clear to auscultation bilaterally chest nontender Abdomen: Soft nontender nondistended normal bowel sounds no masses Back: Nontender Extremity: Nontender 1+ lower extremity edema Skin: Normal color no rash Neuro: Lethargic but responsive to voice. She does follow commands. She is disorientated to place time. Test Results: EKG showed a sinus bradycardic rhythm. Repeat EKG shows a junctional rhythm that is in the 30s. Sodium 129 with a normal potassium and magnesium. White count 11.9. Hemoglobin 9.4. Lactic acid normal. Troponin negative. Beta natruretic peptide 1000. Ammonia level normal. Tox screen showed no alcohol in the system. The patient is on lithium and that was in the normal range. Chest x-ray increased markings on the right but I would not call this definitive for infiltrate or consolidation. Head CT negative. Emergency Department Course and Treatment: Patient's heart rate was variable 30s occasionally in the 40s and 50s blood pressure had been around the 100/60 Geraldo give her take a degree. When she came back from radiology the patient's rhythm appeared different on the monitor this is when the repeat EKG was performed which shows more of a junctional rhythm. Patient received 40 mg of Lasix. I spoke with cardiology who recommended giving her a dose of atropine. Blood pressure remained the same but heart rate came into the 40s and then fell back into the 30s. She was started on low-dose dopamine per recommendations from cardiology. Cardiology recommended transport to [facility] where cardiology is at and where consulting systems engineer would be available. She has been accepted to the emergency department there after consultation with CCU fellow. Her mental status continues to be altered and she is lethargic but responsive to voice. Impression: 1. Bradycardia 2. Hypertension 3. Altered mental status 4. Critical care time 35 minutes This note was generated with [employer] dictation software. It may contain incorrect words, spelling, and punctuation that were not noted in review of the chart prior to signing ED Disposition - Plan for ED Patient: Referrals: Steve Aguirre [Primary Care Provider] -
[2018-04-21] MEDS: DOPamine IV 800 MG/250 ML IV.SOLN. 9.483 MG IV (18:27)
--- NOTE | 2018-04-21 18:28 | ED.RN ---
transfer for cardiac to [facility].
--- NOTE | 2018-04-21 18:29 | ED.DCSUM_ITS ---
- ER Visit Summary Date of Service: 04/21/18 Chief Complaint: Altered mental status and cough History of Present Illness: The patient is a 72 F who proximal he 1 week ago was noted by family to be slightly confused and more off balance. She has chronic bronchitis and has a chronic cough family thought maybe was worse and she went saw her primary care physician was given a dose of Augmentin. This was started 2 days ago. Family states that today she is more sleepy cough is worse and more moist.. She said 3-4 pound weight gain. Her feet are more swollen. They note that she is falling asleep easily and more confused. There was concern that the patient took Benadryl with narcotics this morning but family states that that is not abnormal for her and she took half the normal dose of Benadryl. No reported fevers. She has had 2 prior heart catheterization the reportedly normal. There is a possibility of cardiomyopathy but unclear if she has this from the family. She sees Dr. Aguirre cardiology with [facility]. Stress test August 2017 was normal. Physical Examination: Gen: Well-nourished well-developed morbidly obese Head: Normocephalic atraumatic Eyes: Perrl EOMI ENT: TMs clear no rhinorrhea moist mucous membranes Neck: Supple no lymphadenopathy no JVD nontender CVS: Regular rate and cardiac rhythm no murmurs normal S1-S2 Respiratory: No distress clear to auscultation bilaterally chest nontender Abdomen: Soft nontender nondistended normal bowel sounds no masses Back: Nontender Extremity: Nontender 1+ lower extremity edema Skin: Normal color no rash Neuro: Lethargic but responsive to voice. She does follow commands. She is disorientated to place time. Test Results: EKG showed a sinus bradycardic rhythm. Repeat EKG shows a junctional rhythm that is in the 30s. Sodium 129 with a normal potassium and magnesium. White count 11.9. Hemoglobin 9.4. Lactic acid normal. Troponin negative. Beta natruretic peptide 1000. Ammonia level normal. Tox screen showed no alcohol in the system. The patient is on lithium and that was in the normal range. Chest x-ray increased markings on the right but I would not call this definitive for infiltrate or consolidation. Head CT negative. Emergency Department Course and Treatment: Patient's heart rate was variable 30s occasionally in the 40s and 50s blood pressure had been around the 100/60 Geraldo give her take a degree. When she came back from radiology the patient's rhythm appeared different on the monitor this is when the repeat EKG was performed which shows more of a junctional rhythm. Patient received 40 mg of Lasix. I s poke with cardiology who recommended giving her a dose of atropine. Blood pressure remained the same but heart rate came into the 40s and then fell back into the 30s. She was started on low-dose dopamine per recommendations from cardiology. Cardiology recommended transport to [facility] where cardiology is at and where bread wrapper would be available. She has been accepted to the emergency department there after consultation with CCU fellow. Her mental status continues to be altered and she is lethargic but responsive to voice. Impression: 1. Bradycardia 2. Hypertension 3. Altered mental status 4. Critical care time 35 minutes This note was generated with [employer] dictation software. It may contain incorrect words, spelling, and punctuation that were not noted in review of the chart prior to signing ED Disposition - Plan for ED Patient: Referrals: Steve Aguirre [Primary Care Provider] -
== END 2018-04-21 19:03 | disposition short-term general hospital (02) ==
LOC: ED 14:46
PROVIDERS: Emergency Provider Emergency Medicine; Family Provider Internal Medicine; PCP Internal Medicine
DX: R00.1 Bradycardia, unspecified (principal); I10 Essential (primary) hypertension; R41.82 Altered mental status, unspecified; J42 Unspecified chronic bronchitis; R60.0 Localized edema; E66.01 Morbid (severe) obesity due to excess calories; Z79.82 Long term (current) use of aspirin; Z79.899 Other long term (current) drug therapy
CPT/HCPCS: 36600; 70450; 71045; 80053; 80178; 80307; 80320; 81001; 82140; 82803; 83605; 83690; 83735; 83880; 84484; 85025; 85610; 85730; 93005; 96361; 96374; 96375; 99285; J7030; A4216; G0480; J1940

== ENCOUNTER 2018-08-19 22:10 | Inpatient (IN) | payer MEDICARE, SELFPAY ==
[2018-04-21 13:42] VITALS: BMI 39.5
[2018-08-19] VITALS (7 sets, daily range): BP systolic 110–130; BP diastolic 45–71; PULSE 49–56; RESP 14–19; TEMP 37–37.6; O2SAT 96–98; BMI 30.3
[2018-08-19 22:35] LABS: Bedside Glucose 100 mg/dL (70-110)
--- NOTE | 2018-08-19 22:41 | EKG12_ITS ---
Test Reason : Blood Pressure : / mmHG Vent. Rate : 048 BPM Atrial Rate : 048 BPM P-R Int : 158 ms QRS Dur : 086 ms QT Int : 474 ms P-R-T Axes : 040 011 034 degrees QTc Int : 423 ms Sinus bradycardia with sinus arrhythmia Nonspecific T wave abnormality Abnormal ECG Confirmed by AMY GEE, ALCIRA ([id number]), photographic editor LUCINA SYED ([id number]) on 08/21/2018 8:01:55 AM Referred By: MEETA Confirmed By:ALCIRA REYES MD
--- NOTE | 2018-08-19 22:41 | CT_ITS ---
STUDY: CT BRAIN WITHOUT CONTRAST REASON FOR EXAM: Female, 73 years old. Slurred speech. RADIATION DOSAGE (If Supplied By Facility): CTDIvol = ( 44.99 ) mGy, DLP = ( 779.24 ) mGycm TECHNIQUE: Transaxial CT imaging of the brain was performed without administration of intravenous contrast material. Individualized dose optimization techniques were used for this CT. COMPARISON: April 21, 2018. FINDINGS: Normal soft tissue structures. Normal calvarium. Normal size ventricles and extra-axial spaces for the patient's age. Normal white matter tracts of the cerebral hemispheres. Normal basal ganglia and thalami. Normal brainstem. Normal cerebellum. There is no intracranial hemorrhage. There are no findings of an acute ischemic infarction. Normal visualized paranasal sinuses. CT/Brain/Head without Contrast IMPRESSION: Stable head CT, no acute intracranial abnormality. If there is a high clinical suspicion of an acute infarction and further imaging is warranted recommend MRI with diffusion-weighted images. Electronically Signed: Feliciano Urias MD at 0:12 EDT , Service support ,
--- NOTE | 2018-08-19 22:43 | ED.VIS.GEN ---
History of Present Illness Chief Complaint: Alt LOC Informant: Patient Narrative: Stated that she started having slurred speech for the last 3 days. She noticed that then but did not do anything about it. She is noticed that her speech is off. Family had her brought in tonight because she dropped her cigarette due to some weakness in her left hand per EMS to our nursing staff. The patient stated she is never had a stroke before. She does have chronic COPD and wears oxygen at nighttime. She stated this has not been acting up for her. She denies any chest pain. She denies any focal weakness in her arms or legs. She is on no blood thinners. She is a full code. Patient was not aware that she has a slight droop to her lip. - Past Medical History (1) Acute hyponatremia Status: Acute (2) Influenzal bronchiolitis Status: Acute (3) Anxiety Status: Chronic (4) Bipolar disorder Status: Chronic (5) Chronic bronchitis Status: Chronic (6) Chronic hyponatremia Status: Chronic (7) Constipation due to opioid therapy Status: Chronic (8) Current chronic use of systemic steroids Status: Chronic (9) Hyperlipidemia Status: Chronic (10) Hypertension Status: Chronic (11) Hypokalemia Status: Resolved (12) Norovirus Status: Resolved (13) CAP (community acquired pneumonia) Status: Ruled-out (14) Diarrhea Status: Inactive (15) Hypophosphatemia Status: Inactive (16) Sepsis Status: Inactive Past Medical History - Allergies and Home Meds Allergies/Adverse Reactions: Allergies No Known Allergies Allergy (Verified 02/24/18 16:55) Primary Care Physician: Steve Aguirre [Primary Care Provider] - Surgical History: total knee arthroplasty - Bilateral, - - tubal ligation, multiple right shoulder surgeries Lives: Care Home Smoking Status: Unknown if ever smoked Alcohol: None Drugs: None - Family History Offspring Family History: Reports: Pulmonary Disease - sarcoidosis, - - adrenal insufficiency Maternal Family History: Reports: Heart Disease Paternal Family History: Reports: - - Arthritis Review of Systems General: Denies: Chills, Fever, Sweats Eyes: Denies: Visual changes - bilaterally, Diplopia ENT: Denies: Rhinorrhea, Sore throat Cardiovascular: Denies: Chest pain, Palpitations Respiratory: Denies: Dyspnea, Cough, Dyspnea on exertion Gastrointestinal: Denies: Abdominal pain, Nausea, Vomiting, Diarrhea, Melena, Hematochezia Genitourinary: Denies: Dysuria, Hematuria, Frequency Musculoskeletal: Denies: Back pain, Extremity Pain Skin: Denies: Rash, Wounds Neurological: Reports: Weakness, - - see HPI. Denies: Headache, Numbness Physical Exam Vital Signs/Narrative: Vital Signs Temp Pulse Resp BP Pulse Ox 08/19/18 22:11 99.7 F H 51 L 19 H 110/53 L 98 General: Well nourished, Well developed, No Acute Distress Head: Normocephalic, Atraumatic Eyes: Perrl, EOMI ENT: Moist mucous membranes, No rhinorrhea Neck: Supple, Nontender Cardiovascular: Regular rate, Regular rhythm, No murmurs Respiratory: No distress, CTA bilaterally, Chest nontender Abdomen: Soft, Nontender, Nondistended, Normal bowel sounds Back: Nontender, Normal Inspection Extremities: Nontender, No edema Skin: Normal color, No rash Neurological: Alert, Oriented x3, Cranial nerves II-XII grossly intact, Normal Strength, Normal Sensation, - - She has a NIH stroke scale of 2. She gets a one-point for left lower lip droop. She gets a 1 for mild slurred speech. Otherwise her NIH is 0 Psychological: Normal affect, Normal Mood Diagnostic/Tx/Re-eval - Medical Decision Making Patient's blood sugar is within normal limits. Lab work EKG and CT had obtained. He has had a EKG shows sinus bradycardia at a rate of 48. T wave inversion in V1 through V3. V1 and V2 are unchanged from prior. Lab work shows chronic anemia. No other acute findings noted. Troponin negative. CT head shows nothing acute. Patient remained stable here. At this time I think she is a bad be stroke for the last 3 days resulting in some slurred speech. The patient has not decompensated further. She will be discussed with the hospitalist and admitted. ED Disposition - Plan for ED Patient: Disposition: Home or Assisted Living Diagnosis: Stroke Referrals: Steve Aguirre [Primary Care Provider] -
--- NOTE | 2018-08-19 22:48 | RAD_ITS ---
STUDY: X-RAY CHEST REASON FOR EXAM: Female, 73 years old. AMS and slurred speech TECHNIQUE: Single AP portable view of the chest. COMPARISON: 04/17/2028. 02/25/2028. FINDINGS: Stable scarring in the left perihilar parenchyma and pleural thickening. There are areas of hyperinflation. There is no demonstrated pleural abnormality. There is stable mild cardiac enlargement. Normal mediastinum and mary kay. Normal visualized pulmonary arteries. There is atherosclerotic calcification of the aortic arch with tortuosity. There is demineralization of the osseous structures. Total left shoulder replacement, remodeling of the right shoulder and scapula are stable findings. There is no demonstrated abnormality of the visualized soft tissue structures of the upper abdomen. RAD/Chest 1 View IMPRESSION: Stable cardiac enlargement and chronic interstitial lung disease. No pulmonary edema, congestive heart failure or confluent pneumonia. Other nonacute findings as outlined above. Electronically Signed: Rach Padilla MD at 23:14 EDT , Service support ,
--- NOTE | 2018-08-19 22:52 | ED.RN ---
CHARLES, PATIENT'S GRAND DAUGHTER CALLED IN TO GIVE US AN UPDATE THAT THEY NOTICED SYMPTOMS ON THE PATIENT AT 500AM ON SUNDAY. SHE STATES THE [facility] WAS SUPPOSED TO CALL THE DOCTOR BUT THEY DID NOT. I TOLD HER THAT WE ARE RUNNING SOME TESTS ON HER AND RESULTS WOULD BE BACK UP TO AN HOUR. SHE IS GOING TO COME IN AND SEE THE PATIENT.
[2018-08-19 22:55] LABS: Absolute Lymphocyte Count 1.97 X10^3/ul (0.83-4.51); Absolute Neutrophil Count 7.8 X10^3/uL (2.0-7.7); Basophil# 0.02 X10^3/uL; Basophil% 0.2 % (0-1); Eosinophil# 0.23 X10^3/uL; Eosinophils% 2.1 % (0-5); Hemoglobin 11.6 g/dl (12.0-15.0); Lymphocyte # 1.97 X10^3/ul (4.0); Lymphocyte % 18.3 % (19-41); Mean Corp Hgb Conc 32.2 g/gl (32-36); Mean Corpuscular Hgb 27.8 pg (27.0-32.0); Mean Corpuscular Volume 86.1 fL (81-99); Mean Platelet Vol. 10.9 fl (6.2-12.0); Monocyte# 0.76 X10^3/uL; Monocyte% 7.1 % (0-10); Neutrophil # 7.77 X10^3/uL (2.7-7.7); Neutrophil % 72.1 % (47-70); Platelet Count 302 K/mm3 (150-450); RBC Distribution Width CV 15.1 % (11.6-14.6); RBC Distribution Width SD 46.2 fl (35.1-43.9); Red Blood Count 4.18 M/mm3 (4.2-5.4); White Blood Count 10.8 K/mm3 (4.4-11.0)
[2018-08-19 22:56] LABS: POSITIVE COUNT NO; POSITIVE DIFFERENTIAL NO; POSITIVE MORPHOLOGY NO
[2018-08-19 22:58] LABS: International Normalized Ratio 1.1; Prothrombin Time (Protime)PT. 13.6 SECONDS (11.7-14.9)
[2018-08-19 22:59] LABS: Partial Thromboplast Time 26.4 Seconds (24.1-36.2)
[2018-08-19] MEDS: Albuterol 2.5 MG/3 ML VIAL.NEB. INHALATION (23:00)
[2018-08-19 23:03] LABS: Anion Gap 3 (5-15); BUN 19 mg/dL (7-18); BUN/Creat Ratio 18.3 RATIO (10-20); Calcium,Total 9.8 mg/dL (8.5-10.1); Chloride 107 mmol/L (98-107); Creatinine, Serum 1.04 mg/dL (0.55-1.02); EST Glomerular Filtration Rate 55 mL/min (>60); Est Glom Filt Rate - Afr Amer 67 mL/min (>60); Estimated Creatinine Clearance 52.88 ml/min; Glucose 98 mg/dL (74-106); Potassium 3.7 mmol/L (3.5-5.1); Sodium Level 139 mmol/L (136-145)
[2018-08-20] VITALS (17 sets, daily range): BP systolic 108–172; BP diastolic 48–104; PULSE 51–69; RESP 13–21; TEMP 36.5–37.1; O2SAT 95–100; BMI 35.4; BMI 35.5
--- NOTE | 2018-08-20 | ED.RN ---
DR. CIFUENTES SAID THAT I COULD CANCEL THE STROKE NIH D/T PATIENT IS NOT AN ACUTE STROKE. HE ALSO AWARE THAT HER NIH WENT FROM 2-3 D/T PATIENT SAYING HER LEFT LEG FEELS A LITTLE DIFFERENT WHEN I WAS TOUCHING IT.
--- NOTE | 2018-08-20 01:27 | PCM.HP.STD ---
Problem List (1) Stroke Status: Acute Qualifiers: CVA mechanism: unspecified Qualified Code(s): I63.9 - Cerebral infarction, unspecified (2) Tobacco use Status: Chronic (3) COPD (chronic obstructive pulmonary disease) Status: Chronic Qualifiers: COPD type: unspecified COPD Qualified Code(s): J44.9 - Chronic obstructive pulmonary disease, unspecified (4) Chronic respiratory failure with hypoxia Status: Chronic (5) Hyperlipidemia Status: Chronic Qualifiers: Hyperlipidemia type: unspecified Qualified Code(s): E78.5 - Hyperlipidemia, unspecified (6) Anxiety Status: Chronic (7) Hypertension Status: Chronic Qualifiers: Hypertension type: essential hypertension Qualified Code(s): I10 - Essential (primary) hypertension (8) Bipolar disorder Status: Chronic Qualifiers: Active/Remission status: remission status unspecified Qualified Code(s): F31.9 - Bipolar disorder, unspecified (9) CAD (coronary artery disease) Status: Chronic Qualifiers: Coronary Disease-Associated Artery/Lesion type: unspecified vessel or lesion type [place] vs. transplanted heart: unspecified whether [place] or transplanted heart Associated angina: angina presence unspecified Qualified Code(s): I25.10 - Atherosclerotic heart disease of [place] coronary artery without angina pectoris History of Present Illness Date of Admission: 08/20/18 Chief Complaint: Altered mental status, slurred speech. The patient is a 73 y/o F living at [facility] w/ PMHx: CAD without PCI Hx, Chronic normocytic anemia, HTN, HLD, Asthma/COPD, Obesity, Chronic back pain, Anxiety and Depression/Bipolar disorder, Tobacco use who presents to the [facility] ED on 08/20/18 with history per family of onset mildly slurred speech approximately 3 days prior with onset the evening of ED presentation with ongoing slurred speech however patient was noted to have difficulty holding her cigarettes specifically with her left hand prompting eventual evaluation in the ED for possible stroke. In the ED initial evaluation with NIH stroke scale scoring of 2 specifically 1 for slurred speech and 1 for lower lip mild facial drooping. Work-up in the ED included T 91.7, heart rate 51, BP 110/53, respiratory rate 19, 90% on 3 L nasal cannula, CBC with WBC 10.8, hemoglobin 11.6, platelets 302 with left shift, unremarkable coags, BMP with BUN/Cr 19/1.04, trop < 0.015, CT brain with no acute intracranial abnormality, chest x-ray with stable cardiac enlargement and a chronic interstitial lung disease evident with no pulmonary edema, congestive heart failure or confluent pneumonia evident. In the ED patient administered albuterol therapy x1. 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) Chronic hyponatremia (Chronic) Current chronic use of systemic steroids (Chronic) Allergies No Known Allergies Allergy (Verified 02/24/18 16:55) Home Medications: Ambulatory Orders Medication Instructions Recorded Aspirin [Lo-Dose Aspirin EC] 81 mg PO DAILY 02/23/16 Atorvastatin Calcium [Lipitor] 40 mg PO QHS 02/23/16 Benzonatate [Tessalon Perle] 200 mg PO TID PRN PRN 02/23/16 Fluphenazine HCl [Prolixin] 10 mg PO QHS 02/23/16 Furosemide [Lasix] 60 mg PO DAILY 02/23/16 Lorazepam [Ativan] 1 mg PO Q8H PRN 02/23/16 Losartan Potassium [Cozaar] 100 mg PO DAILY 02/23/16 Multivitamin [Daily Multiple 1 each PO DAILY 02/23/16 Vitamin] Esomeprazole Mag Trihydrate 40 mg PO DAILY 12/18/16 [Nexium] Diphenhydramine HCl [Banophen] 25 mg PO QHS PRN 02/24/18 Folic Acid 1 mg PO DAILY 02/24/18 Melatonin 5 mg PO QHS PRN 02/24/18 Cholecalciferol (VIT D3) [Vitamin 1,000 unit PO DAILY 04/21/18 D] Cyanocobalamin [Vitamin B12] 3,000 mcg PO DAILY@0800 04/21/18 Metoprolol Succinate 150 mg PO DAILY 04/21/18 Sennosides/Docusate Sodium [Senna 1 each PO BID 04/21/18 Plus Tablet] Acetaminophen [Tylenol Extra 500 - 1,000 mg PO Q6H PRN PRN 08/20/18 Strength] Bisacodyl [Dulcolax] 10 mg RECTAL DAILY PRN 08/20/18 Carboxymethylcellulose Sodium 1 drp EACH EYE DAILY PRN 08/20/18 [Refresh Tears] Fluphenazine HCl 10 mg PO DAILY 08/20/18 Gabapentin [Neurontin] 400 mg PO TID 08/20/18 Haloperidol 5 mg PO Q6H PRN PRN 08/20/18 Vidette Carbonate 300 mg PO TID 08/20/18 Magnesium Hydroxide [Milk Of 30 ml PO DAILY PRN 08/20/18 Magnesia] Miconazole 1 applicatio TOPICAL TID 08/20/18 Oxycodone HCl 5 mg PO Q6H PRN PRN 08/20/18 Polyethylene Glycol 17 gm PO BID 08/20/18 Spironolactone [Aldactone] 25 mg PO DAILY 08/20/18 Surgical History: total knee arthroplasty - Bilateral, - - Right shoulder surgeries, bilateral tubal ligation, right total hip replacement, bilateral total knee replacement, tonsillectomy. Psychiatric History: Anxiety, Bipolar, Depression [employer] History: No pertinent [employer] history Lives: Residential Smoking Status: Current every day smoker - Patient currently smoking 1 to 1.5 pack of cigarette weekly, cut down from prior but ongoing usage of nicotine gum concurrently. Tobacco Use: Cigarettes Alcohol: None Drugs: None - *Family History Offspring History Items: Pulmonary Disease - sarcoidosis, - - Adrenal insufficiency Maternal History Items: Heart Disease Paternal History Items: - - Patient notes a paternal family history of arthritis, no specific history of heart disease, diabetes or cancer noted. Review of Systems Constitutional: Reports: Malaise, Weakness, Fatigue. Denies: Chills, Fever, Weight Change HEENT: Reports: Difficulty Swallowing. Denies: Head Aches, Sinus Congestion, Sinus Drainage Cardiovascular: Denies: Chest Pain, Palpitations Respiratory: Denies: Cough, Shortness of breath at rest, Sputum production Gastrointestinal: Denies: Abdominal Pain, Nausea, Vomiting Genitourinary: Denies: Dysuria Musculoskeletal: Reports: Back Pain, Joint Pain. Denies: Joint Tenderness Skin: Denies: Rash, Wounds Neurological: Reports: Difficulty swallowing, Focal weakness, Incoordination. Denies: Numbness, Tingling Psychiatric: Reports: Anxiety, Depression. Denies: Homicidal Ideations, Suicidal Ideations Hematologic/ Lymphatic: Reports: Anemia. Denies: Easy Bruising, Easy Bleeding VTE Information - Inpt Only VTE Present on Admission: No VTE Mechan Device Prophylaxis: SCD's VTE Pharm Prophylaxis ordered?: Yes Patient Problems: Active and Suspected Problems Stroke (Acute) Subjective: Seated upright in the bed, very frustrated and irritated, notes very fatigued, no acute distress. Objective: Physical Examination: General: awake, alert, oriented x 3 and cooperative, seated upright in the ED bed, fatigued, irritable. Skin: normal color, turgor, no icterus, cyanosis. HEENT: AT/NC, EOMI, PERRLA, dry MM, mild L sided lip droop, corrects some with smile request, no carotid bruits or JVD noted. Lungs: Diminished breath sounds throughout, greater bilateral bases, airway sounds, appears to have some difficulty clearing throat, no rales, ronchi or wheezing. Heart: Regular rate and rhythm; no gallop, rub audible. Abdomen: soft, obese, NTTP, ND, normal BS, no HSM. Extremities: no cyanosis, clubbing, bilateral lower extremity nonpitting ankle edema. Neurological: patient awake, alert, oriented as noted; cognitive function appears baseline intact; pupils equally reactive to light and accomodation; cranial nerves II-XII grossly normal except noted mild left-sided lip droop, corrects,, moving all 4 extremities, no focal deficits, negative Babinski bilaterally, LUE FTN remarkable otherwise FTN normal, BL HTS unremarkable, sensation intact, strength moderately to severely globally decreased. Psychiatric: affect appears irritable, fatigued, no acute evidence of depressive or anxiety feelings. - Physical Exam Vital Signs Temp Pulse Resp BP Pulse Ox 98.4 F 56 L 14 140/50 H 98 08/20/18 01:04 08/20/18 01:04 08/20/18 01:04 08/20/18 01:04 08/20/18 01:04 Oxygen Flow Rate (L/min) 3 Oxygen Delivery Method Nasal Cannula Weight: 211 lb 10.3 oz Body Mass Index (BMI) 30.3 Finger Stick Blood Glucose 100 Laboratory Tests Past 24 Hrs 08/19/18 08/19/18 08/19/18 22:25 22:25 22:25 WBC 10.8 RBC 4.18 L Hgb 11.6 L Hct 36.0 L MCV 86.1 MCH 27.8 MCHC 32.2 RDW 15.1 H RDW Differential 46.2 H Plt Count 302 MPV 10.9 Immature Gran % (Auto) 0.200 Neut % (Auto) 72.1 H Lymph % (Auto) 18.3 L [place] % (Auto) 7.1 Eos % (Auto) 2.1 Baso % (Auto) 0.2 Absolute Neuts (auto) 7.8 H Absolute Lymphs (auto) 1.97 Total Counted Not Reportable PT 13.6 INR 1.1 APTT 26.4 Sodium 139 Potassium 3.7 Chloride 107 Carbon Dioxide 29.0 Anion Gap 3 L BUN 19 H Creatinine 1.04 H Estim Creat Clear Calc 52.88 Est GFR (MDRD) Af Amer 67 Est GFR (MDRD) Non-Af 55 L BUN/Creatinine Ratio 18.3 Glucose 98 Calcium 9.8 Troponin I < 0.015 POC Glucose 08/19/18 22:31 POC Glucose 100 Assessment/Plan All Active Problems Influenzal bronchiolitis (Acute) Stroke (Acute) Hypokalemia (Resolved) Norovirus (Resolved) CAP (community acquired pneumonia) (Ruled-out) Acute hyponatremia (Acute) The patient is a 73 y/o F living at SNF w/ PMHx: CAD without PCI Hx, Chronic normocytic anemia, HTN, HLD, Asthma/COPD, Obesity, Chronic back pain, Anxiety and Depression/Bipolar disorder, Tobacco use who presents to the [facility] ED on 08/20/18 with history per family of onset mildly slurred speech approximately 3 days prior with onset the evening of ED presentation with ongoing slurred speech however patient was noted to have difficulty holding her cigarettes specifically with her left hand prompting eventual evaluation in the ED for possible stroke. In the ED initial evaluation with NIH stroke scale scoring of 2 specifically 1 for slurred speech and 1 for lower lip mild facial drooping. (1) Slurred speech, L Mild Facial Droop concerning for TIA/CVA: Work-up in the ED included T 91.7, heart rate 51, BP 110/53, respiratory rate 19, 90% on 3 L nasal cannula, CBC with WBC 10.8, hemoglobin 11.6, platelets 302 with left shift, unremarkable coags, BMP with BUN/Cr 19/1.04, trop < 0.015, CT brain with no acute intracranial abnormality, chest x-ray with stable cardiac enlargement and a chronic interstitial lung disease evident with no pulmonary edema, congestive heart failure or confluent pneumonia evident. Will admit to PCU, will obtain MRI Brain, MRA Head and Neck, ECHO, PT/OT/Speech/Nutrition evaluation per protocol. Will consult Neurology for evaluation. Will allow permissive HTN, maintain on asa, statin w/ AM FLP, fall precautions. Mag, TSH, HgbA1c pending. UA, lithium level pending also. (2) Hypertension: Maintained on permissive hypertension pending MRI. (3) Hyperlipidemia: Continue home statin regimen. AM FLP. (4) Chronic normocytic anemia: Admission hemoglobin 11.6, baseline appears 9-11 range, stable, trend. (5) Chronic COPD/Asthma w/ Chronic Hypoxic Respiratory Failure: Will maintain on home oxygen supplementation, continue ATC duonebs, PRN albuterol, HOB, IS parameters. (6) Anxiety and Depression/Bipolar disorder: We will continue home psychiatric regimen including fluphenazine, Haldol, lorazepam, lithium pending level. (7) Obesity: Weight loss and lifestyle changes encouraged, nutrition consulted. (8) Tobacco Abuse: Encouraged cessation, inpatient consultation per RT, NR if desired. (9) CAD: Patient with cardiac catheterization with no PCI, moderate disease, maintained on aspirin, statin, permissive hypertension currently. (10) DVT Prophylaxis: SCDs, lovenox. (11) CODE status: Patient daughter is her healthcare power of commercial real estate attorney and living will is in place. Discussed CODE status at length including difference between FULL code, DNR-CCA and DNR-CC status. Following discussions about the differences in these status, requested Full Code status. Advanced Care Planning Face to Face Time: 16 minutes. Code Visit Inpatient E&M: 23569 Init Hosp L3 Procedures: 57369 Advncd Care Plan 30 Min
--- NOTE | 2018-08-20 02:01 | ED.RN ---
REPORT GIVEN TO GEORGES KAY IN ICU.
--- NOTE | 2018-08-20 02:07 | ED.RN ---
DR. CIFUENTES TOLD THIS NURSE THAT SEPSIS SCREENINGS DO NOT NEED TO BE DONE ANYMORE.
--- NOTE | 2018-08-20 02:54 | MRI_ITS ---
STUDY: MRI BRAIN WITHOUT CONTRAST REASON FOR EXAM: Female, 73 years old. Slurred speech and facial droop. TECHNIQUE: Standardized multiplanar fat and water weighted pulse sequences were obtained. COMPARISON: None. FINDINGS: There is mild cerebral atrophy with widening of the extra-axial spaces and ventricular dilatation. Normal white matter tracts of the supratentorial brain. Normal bilateral basal ganglia. Normal thalami. There is no extra-axial fluid accumulation. Normal flow voids within the major intracranial circulation suggesting patency by spin echo criteria. Normal sella turcica, pituitary gland, infundibular stalk, optic chiasm and hypothalamus. Normal tectal plate and pineal gland. Normal midbrain, gabriel and medulla. Normal cerebellum. Normal basal cisterns. Mild left greater than right mastoid air cell effusion is present. Normal bilateral internal auditory canals. No demonstrated orbital abnormality, within the constraints of a routine brain study. Normal visualized paranasal sinuses. Normal calvarium and skull base. Normal visualized soft tissue structures. Normal visualized upper cervical spine. MRI/Brain without Contrast IMPRESSION: Mild senescent changes with no evidence of acute intracranial bleed, mass or ischemia. Electronically Signed: Ajit Brice DO at 12:59 EDT , Service support ,
--- NOTE | 2018-08-20 02:54 | ECHOD_ITS ---
Reason For Study: TIA.CVA Procedure This was a 2D Doppler, Color Flow transthoracic echocardiogram. The study was technically difficult. Exam performed portable in patient room. Left Ventricle Normal LV size. Left ventricular systolic function is normal. The estimated ejection fraction is 65 %. Diastolic function is indeterminate. No regional wall motion abnormalities noted. Right Ventricle Normal RV size. Normal systolic function. Atria The left atrium is mildly enlarged. Normal right atrium. No doppler evidence for ASD. Bubble contrast study negative for right to left interatrial shunt. Mitral Valve There is mild mitral annular calcification. Normal mitral valve. Trivial mitral valve insufficiency. Tricuspid Valve Normal tricuspid valve. Trivial tricuspid valve insufficiency. Unable to estimate RV systolic pressure/pulmonary artery pressure due to technically difficult study. Aortic Valve Trisinus/trileaflet aortic valve. Mild focal aortic valve calcification. Trivial aortic valve insufficiency. Pulmonic Valve The pulmonic valve is not well visualized. Great Vessels Normal sized aortic root. Pericardium/Pleural No pericardial effusion. Medication Performed a rapid injection of agitated mix of 9 cc saline and 1cc air to assess for atrial septal defect. MMode/2D Measurements & Calculations LVIDd: 5.5 cm IVSd: 1.0 cm Ao root diam: 3.3 cm LVIDs: 3.3 cm LVPWd: 0.95 cm FS: 40.2 % LAV(MOD-bp): 67.7 ml LA A4 area: 21.7 cm2 LA dimension(2D): 4.7 cm LAV(MOD-bp) Indexed: 31.7 ml/m2 LAV(MOD-sp2): 71.1 ml LAV(MOD-sp4): 63.4 ml RA A4 area: 22.4 cm2 Time Measurements MV dec time: 0.29 sec Doppler Measurements & Calculations MV E max nestor: 99.1 cm/sec Lat Peak E' Nestor: 6.3 cm/sec Med Peak E' Nestor: 6.0 cm/sec MV A max nestor: 122.6 cm/sec E/E' lat: 15.7 E/E' med: 16.5 MV E/A: 0.81 Ao V2 max: 191.4 cm/sec LV V1 max: 149.1 cm/sec PA V2 max: 138.5 cm/sec Ao max P.7 mmHg LV V1 max P.9 mmHg Ao V2 mean: 129.1 cm/sec LV V1 mean P.1 mmHg Ao mean P.4 mmHg LV V1 mean: 108.6 cm/sec Ao V2 VTI: 42.9 cm LV V1 VTI: 38.5 cm Interpretation Summary The study was technically difficult. Left ventricular systolic function is normal. The estimated ejection fraction is 65 %. The left atrium is mildly enlarged. There is mild mitral annular calcification. Trivial mitral valve insufficiency. Trivial tricuspid valve insufficiency. Mild focal aortic valve calcification. Trivial aortic valve insufficiency. Unable to estimate RV systolic pressure/pulmonary artery pressure due to technically difficult study. Diastolic function is indeterminate. Bubble contrast study negative for right to left interatrial shunt. Ordering Physician: Prema Moran Referring Physician: Steve Aguirre Performed By: Jennifer Melgar, ENZO, RVT
--- NOTE | 2018-08-20 02:54 | MRI_ITS ---
STUDY: MRA OF THE HEAD WITHOUT CONTRAST REASON FOR EXAM: Female, 73 years old. Slurred speech and facial droop. TECHNIQUE: 3-D [id number] (TOF) imaging was performed with MIPs. The study was performed unenhanced. COMPARISON: None. FINDINGS: Normal bilateral petrous carotid arteries. There is question of outpouching along the anterior and posterior cavernous carotid artery as seen on series 2 image 99 and series 2 image 91 concerning for focal aneurysm though somewhat limited by technique. Normal left cavernous carotid artery with a normal supraclinoid bifurcation. Normal right A1 segments of the anterior cerebral artery. Normal left A1 segments of the anterior cerebral artery. Normal intact anterior communicating artery (ACOM). Normal bilateral A2 segments of the anterior cerebral arteries. There is irregularity of the right M1 and M2 branches with minimal luminal narrowing, suggesting atherosclerotic plaque formation, without an occlusion. There is irregularity of the left M1 and M2 branches with minimal luminal narrowing, suggesting atherosclerotic plaque formation, without an occlusion. Normal right posterior communicating artery (PCOM). Normal left posterior communicating artery (PCOM). There is a small atretic left vertebral artery with a dominant right vertebral artery. Normal basilar artery with a normal basilar bifurcation. The visualized bilateral superior cerebellar (SCA) arteries are normal. Normal bilateral P1, P2 and visualized P3 segments of the posterior cerebral arteries. There is no major vessel occlusion or hemodynamically significant stenosis. There is no demonstrated abnormality of the visualized brain. MRI/MRA Head ONLY without Contrast IMPRESSION: 1. Bilateral M1 atherosclerotic changes with question of right anterior posterior cavernous carotid artery outpouching concerning for aneurysm though limited by technique. Recommend CTA head for further assessment and evaluation. Otherwise no evidence of significant steno-occlusive disease. Electronically Signed: Ajit Brice DO at 13:09 EDT , Service support ,
[2018-08-20 03:27] LABS: Magnesium 2.4 mg/dL (1.6-2.6); Thyroid Stim Hormone (TSH) 0.08 uIU/mL (0.358-3.74)
[2018-08-20] MEDS: 0.9% NaCl Peripheral Flush Adult/Peds IV (03:43)
[2018-08-20] MEDS: 0.9% Normal Saline 1,000 ML 100 ML IV ×2 (03:43→15:06)
[2018-08-20 03:57] LABS: Absolute Lymphocyte Count 2.02 X10^3/ul (0.83-4.51); Basophil# 0.03 X10^3/uL; Basophil% 0.3 % (0-1); Eosinophil# 0.36 X10^3/uL; Eosinophils% 3.2 % (0-5); Hematocrit 34.9 % (37-47); Hemoglobin 11.1 g/dl (12.0-15.0); Lymphocyte # 2.02 X10^3/ul (4.0); Mean Corp Hgb Conc 31.8 g/gl (32-36); Mean Corpuscular Hgb 27.5 pg (27.0-32.0); Mean Corpuscular Volume 86.6 fL (81-99); Mean Platelet Vol. 10.5 fl (6.2-12.0); Monocyte% 7.1 % (0-10); Neutrophil # 7.98 X10^3/uL (2.7-7.7); Neutrophil % 71.2 % (47-70); Platelet Count 294 K/mm3 (150-450); RBC Distribution Width CV 15.2 % (11.6-14.6); RBC Distribution Width SD 47.6 fl (35.1-43.9); Red Blood Count 4.03 M/mm3 (4.2-5.4); White Blood Count 11.2 K/mm3 (4.4-11.0)
[2018-08-20 03:58] LABS: POSITIVE COUNT NO; POSITIVE DIFFERENTIAL NO; POSITIVE MORPHOLOGY NO
[2018-08-20 04:19] LABS: Anion Gap 6 (5-15); BUN 20 mg/dL (7-18); Calcium,Total 9.8 mg/dL (8.5-10.1); Chloride 107 mmol/L (98-107); Cholesterol 143 mg/dL (200); Creatinine, Serum 1.05 mg/dL (0.55-1.02); EST Glomerular Filtration Rate 55 mL/min (>60); Est Glom Filt Rate - Afr Amer 66 mL/min (>60); Estimated Creatinine Clearance 40.06 ml/min; Glucose 108 mg/dL (74-106); High Density Lipoprotein 37 mg/dL; Potassium 3.5 mmol/L (3.5-5.1); Sodium Level 141 mmol/L (136-145); Triglycerides 162 mg/dL; Very Low Density Lipoprotein 32 mg/dL (5-40)
[2018-08-20 04:41] LABS: Hemoglobin A1c 5.9 % (4.2-6.3)
[2018-08-20] MEDS: Ipratropium/Albuterol Sulfate 3 ML AMPUL.NEB INHALATION ×2 (07:11→19:10)
--- NOTE | 2018-08-20 09:43 | PN_ITS ---
Patient Problems: Active and Suspected Problems Stroke (Acute) Subjective: The patient is a 73-year-old female who resides at a residential with a past medical history of coronary artery disease,RUTHIE - intolerant of CPAP, chronic normocytic anemia, chronic respiratory failure with hypoxemia, hypertension, hyperlipidemia, asthma/COPD, obesity, chronic back pain, bipolar disorder and tobacco dependence who was brought to the emergency department at [facility] on 08/20/2018 with a history of mildly slurred speech 2 days prior to ED presentation. She also had difficulty holding her cigarettes with her left hand. NIH in the emergency room was 2, 1 for slurred speech and one for mild facial droop. Vital signs at presentation to the emergency room were temperature 99.7, pulse rate 51, blood pressure 110/53, respiratory rate 19 and she was 98% saturated on 3 L nasal cannula. White blood cell count was 10.8 with 72% neutrophils. Hemoglobin is 11.6 with normochromic normocytic indices and a mildly increased RDW of 15.1. Platelets were within normal limits. BMP was remarkable for a BUN of 19 and a creatinine of 1.04 which is within her baseline. Troponin was less than 0.015. TSH is low at 0.08. Brogden level was high at 2.3. A noncontrasted CT of the brain showed no acute intracranial abnormality. She was admitted to a monitored bed with a diagnosis of third speech and left facial droop possibly secondary to TIA/CVA. RI of the brain and MRA of the head and neck was ordered for the following day. Afebrile Vital signs stable 96% saturated on 3 L nasal cannula. All lab was personally reviewed. LDL is 74 with an HDL of 37. TSH was low at 0.08. Brogden is high at 2.3. The medication reconciliation does not even list Brogden as one of her drugs. she is aggravated that she is not able to recall what she wants to say at times. She failed her bedside swallow eval. - Physical Exam General: - - sleepy but, arouses easily, she was appropriate with me, gets frustrated when she can't think of what she wants to see HEENT: Atraumatic, PERRLA, EOMI, Normocephalic, - - has a receding hair line Oral: Dry Mucosa, - - she has an overbite Neck: Supple, No JVD Lungs: Clear to auscultation, Diminished Cardiovascular: Regular rate, Regular Rhythm, Normal S1, Normal S2, No murmurs, No rub noted, No Gallop Abdomen: Bowel Sounds Present, Soft, Non-Distended, Obese, Tender - she states she has tenderness in all 4 quadrants but, she has no guarding Extremities: No clubbing, No cyanosis, No edema, - - she has some muscle wasting in the muscles of both LE's.....suspect that she does not walk much Skin: No rashes, No breakdown, - - very dry skin over the face and body Neurological: Cranial nerves II-XII grossly intact - I do not perceive a facial droop, Neuro grossly intact - she is moving all 4 extremities, she is able to follow commands, she has 4-5/5 strength in all extremities, - - mild tremor with intention, not at rest Psych/Mental Status: Appropriate Vital Signs Temp Pulse Resp BP Pulse Ox 97.7 F L 52 L 21 H 172/67 H 96 08/20/18 02:45 08/20/18 03:06 08/20/18 02:45 08/20/18 02:45 08/20/18 03:08 Oxygen Flow Rate (L/min) 3 Oxygen Delivery Method Nasal Cannula Weight: 200 lb 2.876 oz Body Mass Index (BMI) 35.4 Finger Stick Blood Glucose 100 Intake and Output for Last 24 Hours 08/18/18 08/19/18 08/20/18 23:59 23:59 23:59 Intake Total 225 / 225 Balance 225 / 225 Laboratory Tests Past 24 Hrs 08/19/18 08/19/18 08/19/18 22:25 22:25 22:25 WBC 10.8 RBC 4.18 L Hgb 11.6 L Hct 36.0 L MCV 86.1 MCH 27.8 MCHC 32.2 RDW 15.1 H RDW Differential 46.2 H Plt Count 302 MPV 10.9 Immature Gran % (Auto) 0.200 Neut % (Auto) 72.1 H Lymph % (Auto) 18.3 L [place] % (Auto) 7.1 Eos % (Auto) 2.1 Baso % (Auto) 0.2 Absolute Neuts (auto) 7.8 H Absolute Lymphs (auto) 1.97 Total Counted Not Reportable PT 13.6 INR 1.1 APTT 26.4 Sodium 139 Potassium 3.7 Chloride 107 Carbon Dioxide 29.0 Anion Gap 3 L BUN 19 H Creatinine 1.04 H Estim Creat Clear Calc 52.88 Est GFR (MDRD) Af Amer 67 Est GFR (MDRD) Non-Af 55 L BUN/Creatinine Ratio 18.3 Glucose 98 Hemoglobin A1c Calcium 9.8 Magnesium Troponin I < 0.015 Triglycerides Cholesterol LDL Cholesterol VLDL Cholesterol HDL Cholesterol TSH Brogden 08/19/18 08/19/18 08/20/18 22:25 22:25 03:40 WBC RBC Hgb Hct MCV MCH MCHC RDW RDW Differential Plt Count MPV Immature Gran % (Auto) Neut % (Auto) Lymph % (Auto) [place] % (Auto) Eos % (Auto) Baso % (Auto) Absolute Neuts (auto) Absolute Lymphs (auto) Total Counted PT INR APTT Sodium Potassium Chloride Carbon Dioxide Anion Gap BUN Creatinine Estim Creat Clear Calc Est GFR (MDRD) Af Amer Est GFR (MDRD) Non-Af BUN/Creatinine Ratio Glucose Hemoglobin A1c 5.9 Calcium Magnesium 2.4 Troponin I Triglycerides Cholesterol LDL Cholesterol VLDL Cholesterol HDL Cholesterol TSH 0.08 L Brogden 2.30 H* 08/20/18 08/20/18 03:40 03:40 WBC 11.2 H RBC 4.03 L Hgb 11.1 L Hct 34.9 L MCV 86.6 MCH 27.5 MCHC 31.8 L RDW 15.2 H RDW Differential 47.6 H Plt Count 294 MPV 10.5 Immature Gran % (Auto) 0.200 Neut % (Auto) 71.2 H Lymph % (Auto) 18.0 L [place] % (Auto) 7.1 Eos % (Auto) 3.2 Baso % (Auto) 0.3 Absolute Neuts (auto) 8.0 H Absolute Lymphs (auto) 2.02 Total Counted Not Reportable PT INR APTT Sodium 141 Potassium 3.5 Chloride 107 Carbon Dioxide 28.0 Anion Gap 6 BUN 20 H Creatinine 1.05 H Estim Creat Clear Calc 40.06 Est GFR (MDRD) Af Amer 66 Est GFR (MDRD) Non-Af 55 L BUN/Creatinine Ratio 19.0 Glucose 108 H Hemoglobin A1c Calcium 9.8 Magnesium Troponin I Triglycerides 162 Cholesterol 143 LDL Cholesterol 74 VLDL Cholesterol 32 HDL Cholesterol 37 L TSH Brogden POC Glucose 08/19/18 22:31 POC Glucose 100 Medical Necessity - Tobacco Use Smoking Status: Current every day smoker Tobacco Use: Cigarettes Assessment/Plan All Active Problems Influenzal bronchiolitis (Acute) Stroke (Acute) Hypokalemia (Resolved) Norovirus (Resolved) CAP (community acquired pneumonia) (Ruled-out) Acute hyponatremia (Acute) Impressions 1. Slurred speech and minimal facial droop-noncontrasted CT brain negative. Suspect the slurred speech may be secondary to lithium toxicity and I do not perceive any facial droop today 2. Brogden toxicity 3. History of bipolar disorder 4. Obesity 5. COPD 6. Chronic respiratory failure with hypoxemia 7. Coronary artery disease with no history of PCI, treated medically 8. Hypertension 9. Ongoing tobacco dependence Check T3 and T4 await the results of the MRI and MRA's Continue to hold lithium and recheck a level in the a.m. - she has apparently been taking 300 mg TID...may need to decrease the dose Hold fluphenazine since it is not on formulary.... Use Geodon if necessary to control behavior
--- NOTE | 2018-08-20 10:43 | PCM.CONS.GEN ---
Reason for Consult Date of Consultation: 08/20/18 History of Present Illness: reports slurred speech associated with difficulty walking, for two days, reports 4 days ago lithium and gabapentin dose were increased. per admit note:The patient is a 73 y/o F living at SNF w/ PMHx: CAD without PCI Hx, Chronic normocytic anemia, HTN, HLD, Asthma/COPD, Obesity, Chronic back pain, Anxiety and Depression/Bipolar disorder, Tobacco use who presents to the [facility] ED on 08/20/18 with history per family of onset mildly slurred speech approximately 3 days prior with onset the evening of ED presentation with ongoing slurred speech however patient was noted to have difficulty holding her cigarettes specifically with her left hand prompting eventual evaluation in the ED for possible stroke. In the ED initial evaluation with NIH stroke scale scoring of 2 specifically 1 for slurred speech and 1 for lower lip mild facial drooping. Work-up in the ED included T 91.7, heart rate 51, BP 110/53, respiratory rate 19, 90% on 3 L nasal cannula, CBC with WBC 10.8, hemoglobin 11.6, platelets 302 with left shift, unremarkable coags, BMP with BUN/Cr 19/1.04, trop < 0.015, CT brain with no acute intracranial abnormality, chest x-ray with stable cardiac enlargement and a chronic interstitial lung disease evident with no pulmonary edema, congestive heart failure or confluent pneumonia evident. In the ED patient administered albuterol therapy x1. 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) Chronic hyponatremia (Chronic) Current chronic use of systemic steroids (Chronic) Allergies No Known Allergies Allergy (Verified 02/24/18 16:55) Home Medications: Ambulatory Orders Medication Instructions Recorded Aspirin [Lo-Dose Aspirin EC] 81 mg PO DAILY 02/23/16 Atorvastatin Calcium [Lipitor] 40 mg PO QHS 02/23/16 Benzonatate [Tessalon Perle] 200 mg PO TID PRN PRN 02/23/16 Fluphenazine HCl [Prolixin] 10 mg PO QHS 12/28/16 Furosemide [Lasix] 60 mg PO DAILY 02/23/16 Lorazepam [Ativan] 1 mg PO Q8H PRN 02/23/16 Losartan Potassium [Cozaar] 100 mg PO DAILY 02/23/16 Multivitamin [Daily Multiple 1 each PO DAILY 02/23/16 Vitamin] Esomeprazole Mag Trihydrate 40 mg PO DAILY 12/18/16 [Nexium] Diphenhydramine HCl [Banophen] 25 mg PO QHS PRN 02/24/18 Folic Acid 1 mg PO DAILY 02/24/18 Melatonin 5 mg PO QHS PRN 02/24/18 Cholecalciferol (VIT D3) [Vitamin 1,000 unit PO DAILY 04/21/18 D] Cyanocobalamin [Vitamin B12] 3,000 mcg PO DAILY@0800 04/21/18 Metoprolol Succinate 150 mg PO DAILY 04/21/18 Sennosides/Docusate Sodium [Senna 1 each PO BID 04/21/18 Plus Tablet] Acetaminophen [Tylenol Extra 500 - 1,000 mg PO Q6H PRN PRN 08/20/18 Strength] Bisacodyl [Dulcolax] 10 mg RECTAL DAILY PRN 08/20/18 Carboxymethylcellulose Sodium 1 drp EACH EYE DAILY PRN 08/20/18 [Refresh Tears] Fluphenazine HCl 10 mg PO DAILY 08/20/18 Gabapentin [Neurontin] 400 mg PO TID 08/20/18 Haloperidol 5 mg PO Q6H PRN PRN 08/20/18 Girard Carbonate 300 mg PO TID 08/20/18 Magnesium Hydroxide [Milk Of 30 ml PO DAILY PRN 08/20/18 Magnesia] Miconazole 1 applicatio TOPICAL TID 08/20/18 Oxycodone HCl 5 mg PO Q6H PRN PRN 08/20/18 Polyethylene Glycol 17 gm PO BID 08/20/18 Spironolactone [Aldactone] 25 mg PO DAILY 08/20/18 Surgical History: total knee arthroplasty - Bilateral, - - Right shoulder surgeries, bilateral tubal ligation, right total hip replacement, bilateral total knee replacement, tonsillectomy. 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 Review of Systems Neurological: Reports: Slurred speech, Incoordination Patient Problems: Active and Suspected Problems Stroke (Acute) - Physical Exam General: Alert, Oriented x3, Cooperative, No apparent distress HEENT: PERRLA, EOMI Neurological: Cranial nerves II-XII grossly intact, Slurred Speech - + tremor and asterixis, - Vital Signs Temp Pulse Resp BP Pulse Ox 36.5 C L 52 L 21 H 172/67 H 96 08/20/18 02:45 08/20/18 03:06 08/20/18 02:45 08/20/18 02:45 08/20/18 03:08 Oxygen Flow Rate (L/min) 3 Oxygen Delivery Method Nasal Cannula Weight: 90.8 kg Body Mass Index (BMI) 35.4 Finger Stick Blood Glucose 100 Intake and Output for Last 24 Hours 08/18/18 08/19/18 08/20/18 23:59 23:59 23:59 Intake Total 225 / 225 Balance 225 / 225 Laboratory Tests Past 24 Hrs 08/19/18 08/19/18 08/19/18 22:25 22:25 22:25 WBC 10.8 RBC 4.18 L Hgb 11.6 L Hct 36.0 L MCV 86.1 MCH 27.8 MCHC 32.2 RDW 15.1 H RDW Differential 46.2 H Plt Count 302 MPV 10.9 Immature Gran % (Auto) 0.200 Neut % (Auto) 72.1 H Lymph % (Auto) 18.3 L [place] % (Auto) 7.1 Eos % (Auto) 2.1 Baso % (Auto) 0.2 Absolute Neuts (auto) 7.8 H Absolute Lymphs (auto) 1.97 Total Counted Not Reportable PT 13.6 INR 1.1 APTT 26.4 Sodium 139 Potassium 3.7 Chloride 107 Carbon Dioxide 29.0 Anion Gap 3 L BUN 19 H Creatinine 1.04 H Estim Creat Clear Calc 52.88 Est GFR (MDRD) Af Amer 67 Est GFR (MDRD) Non-Af 55 L BUN/Creatinine Ratio 18.3 Glucose 98 Hemoglobin A1c Calcium 9.8 Magnesium Troponin I < 0.015 Triglycerides Cholesterol LDL Cholesterol VLDL Cholesterol HDL Cholesterol TSH Free T4 Free T3 pg/dL Girard 08/19/18 08/19/18 08/20/18 22:25 22:25 03:40 WBC RBC Hgb Hct MCV MCH MCHC RDW RDW Differential Plt Count MPV Immature Gran % (Auto) Neut % (Auto) Lymph % (Auto) [place] % (Auto) Eos % (Auto) Baso % (Auto) Absolute Neuts (auto) Absolute Lymphs (auto) Total Counted PT INR APTT Sodium Potassium Chloride Carbon Dioxide Anion Gap BUN Creatinine Estim Creat Clear Calc Est GFR (MDRD) Af Amer Est GFR (MDRD) Non-Af BUN/Creatinine Ratio Glucose Hemoglobin A1c 5.9 Calcium Magnesium 2.4 Troponin I Triglycerides Cholesterol LDL Cholesterol VLDL Cholesterol HDL Cholesterol TSH 0.08 L Free T4 Free T3 pg/dL Girard 2.30 H* 08/20/18 08/20/18 08/20/18 03:40 03:40 03:40 WBC 11.2 H RBC 4.03 L Hgb 11.1 L Hct 34.9 L MCV 86.6 MCH 27.5 MCHC 31.8 L RDW 15.2 H RDW Differential 47.6 H Plt Count 294 MPV 10.5 Immature Gran % (Auto) 0.200 Neut % (Auto) 71.2 H Lymph % (Auto) 18.0 L [place] % (Auto) 7.1 Eos % (Auto) 3.2 Baso % (Auto) 0.3 Absolute Neuts (auto) 8.0 H Absolute Lymphs (auto) 2.02 Total Counted Not Reportable PT INR APTT Sodium 141 Potassium 3.5 Chloride 107 Carbon Dioxide 28.0 Anion Gap 6 BUN 20 H Creatinine 1.05 H Estim Creat Clear Calc 40.06 Est GFR (MDRD) Af Amer 66 Est GFR (MDRD) Non-Af 55 L BUN/Creatinine Ratio 19.0 Glucose 108 H Hemoglobin A1c Calcium 9.8 Magnesium Troponin I Triglycerides 162 Cholesterol 143 LDL Cholesterol 74 VLDL Cholesterol 32 HDL Cholesterol 37 L TSH Free T4 Pending Free T3 pg/dL Pending Girard 08/20/18 10:40 WBC RBC Hgb Hct MCV MCH MCHC RDW RDW Differential Plt Count MPV Immature Gran % (Auto) Neut % (Auto) Lymph % (Auto) [place] % (Auto) Eos % (Auto) Baso % (Auto) Absolute Neuts (auto) Absolute Lymphs (auto) Total Counted PT INR APTT Sodium Potassium Chloride Carbon Dioxide Anion Gap BUN Creatinine Estim Creat Clear Calc Est GFR (MDRD) Af Amer Est GFR (MDRD) Non-Af BUN/Creatinine Ratio Glucose Hemoglobin A1c Calcium Magnesium Troponin I Triglycerides Cholesterol LDL Cholesterol VLDL Cholesterol HDL Cholesterol TSH Free T4 Free T3 pg/dL Girard Pending POC Glucose 08/19/18 22:31 POC Glucose 100 Current Home Med List Medication Instructions Recorded Confirmed Type Aspirin [Lo-Dose Aspirin EC] 81 mg PO DAILY 02/23/16 08/20/18 History Atorvastatin Calcium [Lipitor] 40 mg PO QHS 02/23/16 08/20/18 History Benzonatate [Tessalon Perle] 200 mg PO TID PRN PRN 02/23/16 08/20/18 History Fluphenazine HCl [Prolixin] 10 mg PO QHS 02/23/16 08/20/18 History Furosemide [Lasix] 60 mg PO DAILY 02/23/16 08/20/18 History Lorazepam [Ativan] 1 mg PO Q8H PRN 02/23/16 08/20/18 History Losartan Potassium [Cozaar] 100 mg PO DAILY 02/23/16 08/20/18 History Multivitamin [Daily Multiple 1 each PO DAILY 02/23/16 08/20/18 History Vitamin] Esomeprazole Mag Trihydrate 40 mg PO DAILY 12/18/16 08/20/18 History [Nexium] Diphenhydramine HCl [Banophen] 25 mg PO QHS PRN 02/24/18 08/20/18 History Folic Acid 1 mg PO DAILY 02/24/18 08/20/18 History Melatonin 5 mg PO QHS PRN 02/24/18 08/20/18 History Cholecalciferol (VIT D3) [Vitamin 1,000 unit PO DAILY 04/21/18 08/20/18 History D] Cyanocobalamin [Vitamin B12] 3,000 mcg PO DAILY@0800 04/21/18 04/21/18 History Metoprolol Succinate 150 mg PO DAILY 04/21/18 08/20/18 History Sennosides/Docusate Sodium [Senna 1 each PO BID 04/21/18 08/20/18 History Plus Tablet] Acetaminophen [Tylenol Extra 500 - 1,000 mg PO Q6H PRN PRN 08/20/18 08/20/18 History Strength] Bisacodyl [Dulcolax] 10 mg RECTAL DAILY PRN 08/20/18 08/20/18 History Carboxymethylcellulose Sodium 1 drp EACH EYE DAILY PRN 08/20/18 08/20/18 History [Refresh Tears] Fluphenazine HCl 10 mg PO DAILY 08/20/18 08/20/18 History Gabapentin [Neurontin] 400 mg PO TID 08/20/18 08/20/18 History Haloperidol 5 mg PO Q6H PRN PRN 08/20/18 08/20/18 History Girard Carbonate 300 mg PO TID 08/20/18 08/20/18 History Magnesium Hydroxide [Milk Of 30 ml PO DAILY PRN 08/20/18 08/20/18 History Magnesia] Miconazole 1 applicatio TOPICAL TID 08/20/18 08/20/18 History Oxycodone HCl 5 mg PO Q6H PRN PRN 08/20/18 08/20/18 History Polyethylene Glycol 17 gm PO BID 08/20/18 08/20/18 History Spironolactone [Aldactone] 25 mg PO DAILY 08/20/18 08/20/18 History Current Medications Generic Name Dose Route Start Last Admin Trade Name Freq PRN Reason Stop Dose Admin Acetaminophen 650 mg 08/20/18 02:54 Tylenol PO Q6H PRN PRN Non-cardiac pain (mod-severe) Al Hydroxide/Mg Hydroxide 15 - 30 ml 08/20/18 02:54 Mylanta Ii PO Q4H PRN PRN INDIGESTION Albuterol Sulfate 2.5 mg 08/20/18 02:54 Ventolin Aerosols INHALATION Q2H PRN PRN dyspnea, wheezing Albuterol/Ipratropium 3 ml 08/20/18 02:54 08/20/18 07:11 Duoneb INHALATION 3 ml Q6HWA.RT MAURILIO Administration Aspirin 81 mg 08/20/18 10:00 08/20/18 09:32 Ecotrin PO Not Given DAILY MAURILIO Atorvastatin Calcium 40 mg 08/20/18 22:00 Lipitor PO QHS MAURILIO Benzonatate 200 mg 08/20/18 02:54 Tessalon Perle PO TID PRN PRN COUGH Bisacodyl 10 mg 08/20/18 02:54 Dulcolax RECTAL DAILY PRN Constipation Dextrose 0 gm 08/20/18 02:54 D50w Syringe IV X1 PRN Hypoglycemia Protocol Diphenhydramine HCl 25 mg 08/20/18 03:13 Benadryl PO QHS PRN PRN SLEEP Enoxaparin Sodium 40 mg 08/20/18 10:00 Lovenox SC DAILY@1000 MAURILIO Gabapentin 400 mg 08/20/18 06:00 08/20/18 05:16 Neurontin PO Not Given TID [facility] Glucagon 1 mg 08/20/18 02:54 IM .X1 PRN Hypoglycemia Haloperidol 5 mg 08/20/18 02:54 Haldol PO Q6H PRN PRN ANXIETY Hydralazine HCl 5 mg 08/20/18 02:54 Apresoline Iv IV Q30M PRN sbp > 220/120 Sodium Chloride 1,000 mls @ 100 mls/hr 08/20/18 02:54 08/20/18 03:43 IV 100 mls/hr .Q10H MAURILIO Administration Sodium Chloride 250 mls @ 15 mls/hr 08/20/18 03:10 IV .[id number] PRN SALINE FLUSH Labetalol HCl 10 mg 08/20/18 02:54 Trandate IV 08/21/18 02:55 Q10M PRN MAINTAIN BP < 220/120 Lorazepam 1 mg 08/20/18 02:54 Ativan PO Q8H PRN ANXIETY Magnesium Hydroxide 30 ml 08/20/18 02:54 Milk Of Magnesia PO DAILY PRN Constipation Melatonin 5 mg 08/20/18 02:54 Melatonin PO QHS PRN PRN sleeping Miconazole Nitrate 1 applic 08/20/18 06:00 08/20/18 05:16 Monistat-Derm, Micatin TOPICAL Not Given TID [facility] Morphine Sulfate 1 - 2 mg 08/20/18 02:54 IV Q4H PRN PRN PAIN Ondansetron HCl 4 mg 08/20/18 02:54 Zofran IV Q8H PRN PRN NAUSEA/VOMITING Oxycodone HCl 5 mg 08/20/18 02:54 Oxyir PO Q6H PRN PRN pain Pantoprazole Sodium 40 mg 08/20/18 10:00 08/20/18 09:30 Protonix PO Not Given DAILY [facility] Polyethylene Glycol 17 gm 08/20/18 10:00 08/20/18 09:31 Miralax PO Not Given BID MAURILIO Senna/Docusate Sodium 1 tablet 08/20/18 10:00 08/20/18 09:29 Senokot-S, Rocio-Colace PO Not Given BID MAURILIO Sodium Chloride 5 - 15 ml 08/20/18 03:10 08/20/18 03:43 IV 10 ml UD PRN Administration SALINE FLUSH ct reviewed, no acute Assessment/Plan All Active Problems Influenzal bronchiolitis (Acute) Stroke (Acute) Hypokalemia (Resolved) Norovirus (Resolved) CAP (community acquired pneumonia) (Ruled-out) Acute hyponatremia (Acute) suspect mild lithium toxicity, agree hold lithium, rec hold gabapentin as well mri brain when feasible
[2018-08-20 10:44] LABS: Free T3 2.6 pg/mL (2.18-3.98); T4 Free Direct 1.43 ng/dL (0.76-1.46)
--- NOTE | 2018-08-20 10:47 | CASEMGMT ---
NICOLE called [facility] and spoke with Celia. 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 SW faxed her updates. She said patient can return when ready and does not need to have pre-cert prior to returning. Plan: d/c back to [facility] [place]. Farida JOHSNON MSW
[2018-08-20] MEDS: Enoxaparin 40 MG/0.4 ML Syringe SC (11:06)
[2018-08-20] MEDS: LORazepam 2 MG/ML Syringe 1 MG IV (11:46)
--- NOTE | 2018-08-20 12:45 | MRI_ITS ---
STUDY: MRA NECK WITHOUT CONTRAST REASON FOR EXAM: Female, 73 years old. CVA, slurred speech TECHNIQUE: Source images were obtained, MIPs were performed. The study was performed unenhanced. COMPARISON: None. FINDINGS: RIGHT CAROTID ARTERIES: Normal right common carotid artery (CCA). Normal right common carotid bulb. There is mild atherosclerotic plaque formation of the origin of the right internal carotid artery . Normal visualized cervical portion of the right internal carotid artery. Normal origin of the right external carotid artery (ECA). LEFT CAROTID ARTERIES: Normal left common carotid artery (CCA). Normal left common carotid bulb. There is mild atherosclerotic plaque formation of the origin of the left internal carotid artery . Normal visualized cervical portion of the left internal carotid artery. Normal origin of the left external carotid artery (ECA). VERTEBRAL ARTERIES: Normal antegrade flow within the bilateral vertebral artery without a hemodynamically significant stenosis. MRI/MRA Neck without Contrast IMPRESSION: There is mild atherosclerotic plaque of the origin of the bilateral internal carotid arteries . Consider CTA of the neck for more accurate characterization of the degree of stenosis. Electronically Signed: Peyton Cowart, at 14:01 EDT Tel , Service support ,
[2018-08-20] MEDS: oxyCODONE 5 MG Tablet PO (14:34)
[2018-08-20] MEDS: Gabapentin 400 MG Capsule PO ×2 (15:07→21:04)
[2018-08-20 18:52] LABS: Mucous, Urine 0 SEEN /hpf (<or=2+); Red Blood Cells-Urine 0 SEEN /hpf (0-5)
[2018-08-20 18:57] LABS: Color, Urine Yellow (Yellow); Glucose, Dipstick Normal (Normal); Ketone-Dipstick Negative (Negative); Leukocyte Esterase-Dipstick 500 /ul (Negative); Nitrite-Dipstick Positive (Negative); Occult Blood-Urine 50 /ul (Negative); Protein-Dipstick 30 mg/dl (Negative); Specific Gravity, Urine 1.015 (1.002-1.030); Urine Bilirubin Dipstick Negative (Negative); Urine Clarity Cloudy (Clear); Urine Urobilinogen Normal (Normal); Urine pH 6.5 (5.0 - 8.0)
[2018-08-20 19:08] LABS: Bacteria 4+ /hpf (None Seen); Squamous Epithelial Cells - UA 0-5 SEEN /hpf (5-10); Transitional Epithelial - Ur 0-5 SEEN /hpf (0-5); White Blood Cells >100 SEEN /hpf (0-5)
--- NOTE | 2018-08-20 20:42 | NURSING ---
Report given to Sherry GERMINATION WORKER at this time.
[2018-08-20] MEDS: Senna/Docusate Sodium 1 Tablet PO (21:04)
[2018-08-20] MEDS: DiphenhydrAMINE 25 MG Capsule PO (21:04)
[2018-08-20] MEDS: Polyethylene Glycol 3350 17 GM PACKET PO (21:04)
[2018-08-20] MEDS: Atorvastatin Calcium 40 MG Tablet PO (21:04)
--- NOTE | 2018-08-20 22:00 | NURSING ---
This RN taking over care of Pt at this time.
[2018-08-21] VITALS (12 sets, daily range): BP systolic 136–164; BP diastolic 60–73; PULSE 48–70; RESP 16–22; TEMP 36.8–37; O2SAT 95–99; BMI 35.4
[2018-08-21] MEDS: 0.9% Normal Saline 1,000 ML 100 ML IV ×3 (00:52→21:26)
[2018-08-21] MEDS: Gabapentin 400 MG Capsule PO ×3 (05:00→21:10)
[2018-08-21] MEDS: oxyCODONE 5 MG Tablet PO ×2 (05:15→14:42)
[2018-08-21] MEDS: Aspirin E.C. 81 MG Tablet PO (09:19)
[2018-08-21] MEDS: Senna/Docusate Sodium 1 Tablet PO ×2 (09:19→21:10)
[2018-08-21] MEDS: Polyethylene Glycol 3350 17 GM PACKET PO ×2 (09:19→21:27)
[2018-08-21] MEDS: Enoxaparin 40 MG/0.4 ML Syringe SC (09:19)
[2018-08-21] MEDS: Pantoprazole Sodium 40 MG Tablet PO (09:20)
--- NOTE | 2018-08-21 13:00 | CASEMGMT ---
NICOLE faxed updates to [facility]. NICOLE wrote on fax face sheet that physician said 1-2 more days for patient. Plan: d/c back to [facility]. Farida JOHNSON MSW
--- NOTE | 2018-08-21 17:15 | PN_ITS ---
Patient Problems: Active and Suspected Problems Stroke (Acute) Subjective: Patient stated she has chronic tremors for several years. Heart rate sinus bradycardia in the low 50s. Sometimes patient gets confused. GCS 14. Vitals/I&O's: Vital Signs Temp Pulse Resp BP Pulse Ox 98.3 F 54 L 16 160/69 H 95 08/21/18 14:43 08/21/18 15:05 08/21/18 14:43 08/21/18 14:43 08/21/18 14:43 Oxygen Flow Rate (L/min) 2 Oxygen Delivery Method Nasal Cannula Weight: 200 lb 2.876 oz Body Mass Index (BMI) 35.4 Finger Stick Blood Glucose 100 Intake and Output for Last 24 Hours 08/19/18 08/20/18 08/21/18 23:59 23:59 23:59 Intake Total 1908 / 2182 1120 / 1120 Output Total 950 / 950 Balance 958 / 1232 1120 / 1120 General: Alert, Oriented x3, Cooperative HEENT: Atraumatic, PERRLA, EOMI, Normocephalic Oral: Moist Mucosa Neck: Supple, No JVD, Negative Carotid Bruits Lungs: Clear to auscultation, No rhonchi, No wheeze, No rales, Diminished Cardiovascular: Regular rate, Regular Rhythm, Normal S1, Normal S2, No murmurs Abdomen: Bowel Sounds Present, Soft, Non Tender, Non-Distended Extremities: No edema, Capillary Refill Less than 3 Seconds Skin: No rashes, No breakdown Musculoskeletal: No Tenderness to Palpation of Joints or Extremities, Arthritic Changes Neurological: Cranial nerves II-XII grossly intact, Unsteady Gait, - - Tremors, diffuse. Psych/Mental Status: Normal Affect, Appropriate Laboratory Results 08/20/18 18:40: Urine Color Yellow, Urine Clarity Cloudy, Urine pH 6.5, Ur Specific [place] 1.015, Urine Protein 30 H, Urine Glucose (UA) Normal, Urine Ketones Negative, Urine Occult Blood 50 H, Urine Nitrite Positive H, Urine Bilirubin Negative, Urine Urobilinogen Normal, Ur Leukocyte Esterase 500 H, Urine RBC 0 SEEN, Urine WBC >100 SEEN, Ur Squamous Epith Cells 0-5 SEEN, Ur Tr ansition Epith Cell 0-5 SEEN, Urine Bacteria 4+, Urine Mucus 0 SEEN 08/21/18 05:20: [place] 1.60 H* Current Medications Acetaminophen (Tylenol) 650 mg PO Q6H PRN PRN PRN Reason: Non-cardiac pain (mod-severe) Al Hydroxide/Mg Hydroxide (Mylanta Ii) 15 - 30 ml PO Q4H PRN PRN PRN Reason: INDIGESTION Albuterol Sulfate (Ventolin Aerosols) 2.5 mg INHALATION Q2H PRN PRN PRN Reason: dyspnea, wheezing Albuterol/Ipratropium (Duoneb) 3 ml INHALATION Q6HWA.RT [facility] Last Admin: 08/21/18 12:50 Dose: Not Given Documented by: Aspirin (Ecotrin) 81 mg PO DAILY [facility] Last Admin: 08/21/18 09:19 Dose: 81 mg Documented by: Atorvastatin Calcium (Lipitor) 40 mg PO QHS [facility] Last Admin: 08/20/18 21:04 Dose: 40 mg Documented by: Benzonatate (Tessalon Perle) 200 mg PO TID PRN PRN PRN Reason: COUGH Bisacodyl (Dulcolax) 10 mg RECTAL DAILY PRN PRN Reason: Constipation Dextrose (D50w Syringe) 0 gm IV X1 PRN; Protocol PRN Reason: Hypoglycemia Diphenhydramine HCl (Benadryl) 25 mg PO QHS PRN PRN PRN Reason: SLEEP Last Admin: 08/20/18 21:04 Dose: 25 mg Documented by: Enoxaparin Sodium (Lovenox) 40 mg SC DAILY@1000 [facility] Last Admin: 08/21/18 09:19 Dose: 40 mg Documented by: Gabapentin (Neurontin) 400 mg PO TID [facility] Last Admin: 08/21/18 14:43 Dose: 400 mg Documented by: Glucagon () 1 mg IM .X1 PRN PRN Reason: Hypoglycemia Haloperidol (Haldol) 5 mg PO Q6H PRN PRN PRN Reason: ANXIETY Hydralazine HCl (Apresoline Iv) 5 mg IV Q30M PRN PRN Reason: sbp > 220/120 Sodium Chloride () 1,000 mls @ 100 mls/hr IV .Q10H [facility] Last Admin: 08/21/18 12:48 Dose: 100 mls/hr Documented by: Sodium Chloride () 250 mls @ 15 mls/hr IV .[id number] PRN PRN Reason: SALINE FLUSH Lorazepam (Ativan) 1 mg PO Q8H PRN PRN Reason: ANXIETY Magnesium Hydroxide (Milk Of Magnesia) 30 ml PO DAILY PRN PRN Reason: Constipation Melatonin (Melatonin) 5 mg PO QHS PRN PRN PRN Reason: sleeping Miconazole Nitrate (Monistat-Derm, Micatin) 1 applic TOPICAL TID [facility] Last Admin: 08/21/18 14:36 Dose: Not Given Documented by: Morphine Sulfate () 1 - 2 mg IV Q4H PRN PRN PRN Reason: PAIN Ondansetron HCl (Zofran) 4 mg IV Q8H PRN PRN PRN Reason: NAUSEA/VOMITING Oxycodone HCl (Oxyir) 5 mg PO Q6H PRN PRN PRN Reason: pain Last Admin: 08/21/18 14:42 Dose: 5 mg Documented by: Pantoprazole Sodium (Protonix) 40 mg PO DAILY [facility] Last Admin: 08/21/18 09:20 Dose: 40 mg Documented by: Polyethylene Glycol (Miralax) 17 gm PO BID [facility] Last Admin: 08/21/18 09:19 Dose: 17 gm Documented by: Senna/Docusate Sodium (Senokot-S, Rocio-Colace) 1 tablet PO BID [facility] Last Admin: 08/21/18 09:19 Dose: 1 tablet Documented by: Sodium Chloride () 5 - 15 ml IV UD PRN PRN Reason: SALINE FLUSH Last Admin: 08/20/18 03:43 Dose: 10 ml Documented by: Medical Necessity - Tobacco Use Smoking Status: Current every day smoker Tobacco Use: Cigarettes Assessment/Plan All Active Problems Influenzal bronchiolitis (Acute) Stroke (Acute) Hypokalemia (Resolved) Norovirus (Resolved) CAP (community acquired pneumonia) (Ruled-out) Acute hyponatremia (Acute) This is a 73-year-old female, snf resident with multiple comorbidities including coronary artery disease, obstructive sleep apnea, intolerant to CPAP, chronic normocytic anemia, chronic hypoxic respiratory failure, hypertension, dyslipidemia asthma/COPD, bipolar disorder on lithium was admitted for slurred speech 2 days prior to admission along with difficulty in holding and mild facial droop. NIH stroke scale was 2. Patient lithium level was high 2.3. CT had did not show acute intracranial change. Patient was further admitted on PCU. 1. Mild lithium toxicity: Patient was seen by neurologist feels her symptoms are mainly due to lithium toxicity. [place] level have improved to 1.6. [place] and gabapentin on hold. MRI brain was done shows no acute intracranial bleed, mass or ischemia. MRA head shows bilateral M1 atherosclerotic plaque with questionable right anterioposterior cavernous carotid artery aneurysm. Neck MRA shows mild atherosclerotic plaque at the origin of bilateral ICA. TSH 0.08. Free T4 and free T3 normal. UA shows pyuria more than 100 cells, LE 500. Nitrite positive. Empirically started on IV Rocephin. Urine culture ordered 2. Bipolar disorder: 4. COPD 5 . Chronic respiratory failure with hypoxemia 6. Coronary artery disease with no history of PCI, treated medically 7. Hypertension 9. Nicotine dependence with cigarette smoking: Laboratory Results 08/20/18 18:40: Urine Color Yellow, Urine Clarity Cloudy, Urine pH 6.5, Ur Specific [place] 1.015, Urine Protein 30 H, Urine Glucose (UA) Normal, Urine Ketones Negative, Urine Occult Blood 50 H, Urine Nitrite Positive H, Urine Bilirubin Negative, Urine Urobilinogen Normal, Ur Leukocyte Esterase 500 H, Urine RBC 0 SEEN, Urine WBC >100 SEEN, Ur Squamous Epith Cells 0-5 SEEN, Ur Transition Epith Cell 0-5 SEEN, Urine Bacteria 4+, Urine Mucus 0 SEEN 08/21/18 05:20: [place] 1.60 H* Clinical Impression(s) from Imaging Studies Brain CT 08/19/18 22:41 IMPRESSION: Stable head CT, no acute intracranial abnormality. If there is a high clinical suspicion of an acute infarction and further imaging is warranted recommend MRI with diffusion-weighted images. Chest X-Ray 08/19/18 22:48 IMPRESSION: Stable cardiac enlargement and chronic interstitial lung disease. No pulmonary edema, congestive heart failure or confluent pneumonia. Other nonacute findings as outlined above. Brain MRI 08/20/18 02:54 IMPRESSION: Mild senescent changes with no evidence of acute intracranial bleed, mass or ischemia. Head MRA 08/20/18 02:54 IMPRESSION: 1. Bilateral M1 atherosclerotic changes with question of right anterior posterior cavernous carotid artery outpouching concerning for aneurysm though limited by technique. Recommend CTA head for further assessment and evaluation. Otherwise no evidence of significant steno-occlusive disease. Neck MRA 08/20/18 12:45 IMPRESSION: There is mild atherosclerotic plaque of the origin of the bilateral internal carotid arteries . Consider CTA of the neck for more accurate characterization of the degree of stenosis. Code Visit Inpatient E&M: 89929 Subs Hosp L3
[2018-08-21] MEDS: Ceftriaxone 1 GM/50 ML BAG IV (18:19)
[2018-08-21] MEDS: Ipratropium/Albuterol Sulfate 3 ML AMPUL.NEB INHALATION (18:56)
[2018-08-21] MEDS: Atorvastatin Calcium 40 MG Tablet PO (21:10)
[2018-08-21] MEDS: Benzonatate 100 MG Capsule 200 MG PO (21:16)
[2018-08-21] MEDS: LORazepam 1 MG Tablet PO (21:17)
[2018-08-21] MEDS: DiphenhydrAMINE 25 MG Capsule PO (21:17)
[2018-08-22] VITALS (15 sets, daily range): BP systolic 149–162; BP diastolic 52–76; PULSE 48–85; RESP 14–20; TEMP 36.7–37.3; O2SAT 94–100; BMI 35.4
[2018-08-22] MEDS: oxyCODONE 5 MG Tablet PO (01:44)
[2018-08-22] MEDS: Gabapentin 400 MG Capsule PO ×3 (06:49→21:46)
[2018-08-22] MEDS: Acetaminophen 325 MG Tablet 650 MG PO ×2 (06:51→21:46)
[2018-08-22] MEDS: Ipratropium/Albuterol Sulfate 3 ML AMPUL.NEB INHALATION ×3 (07:16→19:07)
[2018-08-22] MEDS: Ceftriaxone 1 GM/50 ML BAG IV (10:22)
--- NOTE | 2018-08-22 10:44 | EKG12_ITS ---
Test Reason : RHYTHM Blood Pressure : / mmHG Vent. Rate : 047 BPM Atrial Rate : 047 BPM P-R Int : 160 ms QRS Dur : 082 ms QT Int : 436 ms P-R-T Axes : 059 035 040 degrees QTc Int : 385 ms Sinus bradycardia with marked sinus arrhythmia T wave abnormality, consider anterior ischemia Abnormal ECG Confirmed by AMY GEE, ALCIRA ([id number]), assignment desk editor RAKAN YOO ([id number]) on 08/27/2018 12:05:59 PM Referred By: SAM Confirmed By:ALCIRA REYES MD
--- NOTE | 2018-08-22 10:54 | RAD_ITS ---
STUDY: X-RAY CHEST REASON FOR EXAM: Female, 73 years old. TECHNIQUE: 1 view COMPARISON: . FINDINGS: The heart is mildly enlarged. There is poor inspiration. There is mild pulmonary vascular congestion seen. No pleural effusion or pneumothorax noted. Calcification noted seen in the aortic knob. There is resorption of the humeral head on the right side. Shoulder prosthesis on the left. RAD/Chest 1 View (Portable) IMPRESSION: Negative chest for active disease and changed since August 19, 2018. Electronically Signed: Eduin Lion, at 14:49 EDT Tel , Service support ,
--- NOTE | 2018-08-22 10:59 | PCM.PN.HOSP ---
Patient Problems: Active and Suspected Problems Stroke (Acute) Bradycardia (Acute) Subjective: Seen and examined. Called by nurse that patient has severe bradycardia with sinus pause of 2.8 ms. Telemetry rhythm reviewed. Patient does not have symptoms that he was able to bradycardia including dizziness, lightheadedness/near syncope syncope or shortness of breath or chest pain. Vitals/I&O's: Vital Signs Temp Pulse Resp BP Pulse Ox 98.8 F 60 16 162/73 H 96 08/22/18 06:56 08/22/18 07:41 08/22/18 07:16 08/22/18 06:56 08/22/18 07:16 Oxygen Flow Rate (L/min) 2.5 Oxygen Delivery Method Nasal Cannula Weight: 200 lb 2.876 oz Body Mass Index (BMI) 35.4 Finger Stick Blood Glucose 100 Intake and Output for Last 24 Hours 08/20/18 08/21/18 08/22/18 23:59 23:59 23:59 Intake Total 1908 / 2182 2988 / 2988 830 / 830 Output Total 950 / 950 500 / 500 Balance 958 / 1232 2488 / 2488 830 / 830 General: Alert, Oriented x3, Cooperative HEENT: Atraumatic, PERRLA, EOMI, Normocephalic Neck: Supple, No JVD, Negative Carotid Bruits Lungs: Clear to auscultation, No rhonchi, No wheeze, No rales, Diminished Cardiovascular: Regular Rhythm, Normal S1, Normal S2, No murmurs, Bradycardic, - - Is +2.8 ms Abdomen: Bowel Sounds Present, Soft, Non Tender, Non-Distended Extremities: No edema, Capillary Refill Less than 3 Seconds Skin: No rashes, No breakdown Musculoskeletal: No Tenderness to Palpation of Joints or Extremities, Arthritic Changes, - - Bilateral TKR scar Neurological: Cranial nerves II-XII grossly intact, Deep Tendon Reflexes 2+/4 and Symmetrical - DTRs 2+., Neuro grossly intact, Motor Exam 5/5 strength throughout Psych/Mental Status: Normal Affect, Appropriate Current Medications Acetaminophen (Tylenol) 650 mg PO Q6H PRN PRN PRN Reason: Non-cardiac pain (mod-severe) Last Admin: 08/22/18 06:51 Dose: 650 mg Documented by: Al Hydroxide/Mg Hydroxide (Mylanta Ii) 15 - 30 ml PO Q4H PRN PRN PRN Reason: INDIGESTION Albuterol Sulfate (Ventolin Aerosols) 2.5 mg INHALATION Q2H PRN PRN PRN Reason: dyspnea, wheezing Albuterol/Ipratropium (Duoneb) 3 ml INHALATION Q6HWA.RT [facility] Last Admin: 08/22/18 07:16 Dose: 3 ml Documented by: Aspirin (Ecotrin) 81 mg PO DAILY [facility] Last Admin: 08/21/18 09:19 Dose: 81 mg Documented by: Atorvastatin Calcium (Lipitor) 40 mg PO QHS [facility] Last Admin: 08/21/18 21:10 Dose: 40 mg Documented by: Benzonatate (Tessalon Perle) 200 mg PO TID PRN PRN PRN Reason: COUGH Last Admin: 08/21/18 21:16 Dose: 200 mg Documented by: Bisacodyl (Dulcolax) 10 mg RECTAL DAILY PRN PRN Reason: Constipation Dextrose (D50w Syringe) 0 gm IV X1 PRN; Protocol PRN Reason: Hypoglycemia Diphenhydramine HCl (Benadryl) 25 mg PO QHS PRN PRN PRN Reason: SLEEP Last Admin: 08/21/18 21:17 Dose: 25 mg Documented by: Enoxaparin Sodium (Lovenox) 40 mg SC DAILY@1000 [facility] Last Admin: 08/21/18 09:19 Dose: 40 mg Documented by: Gabapentin (Neurontin) 400 mg PO TID [facility] Last Admin: 08/22/18 06:49 Dose: 400 mg Documented by: Glucagon () 1 mg IM .X1 PRN PRN Reason: Hypoglycemia Haloperidol (Haldol) 5 mg PO Q6H PRN PRN PRN Reason: ANXIETY Hydralazine HCl (Apresoline Iv) 5 mg IV Q30M PRN PRN Reason: sbp > 220/120 Sodium Chloride () 250 mls @ 15 mls/hr IV .[id number] PRN PRN Reason: SALINE FLUSH Ceftriaxone Sodium (Rocephin) 1 gm in 50 mls @ 100 mls/hr IV Q24 [facility] Last Admin: 08/22/18 10:22 Dose: 100 mls/hr Documented by: Lorazepam (Ativan) 1 mg PO Q8H PRN PRN Reason: ANXIETY Last Admin: 08/21/18 21:17 Dose: 1 mg Documented by: Magnesium Hydroxide (Milk Of Magnesia) 30 ml PO DAILY PRN PRN Reason: Constipation Melatonin (Melatonin) 5 mg PO QHS PRN PRN PRN Reason: sleeping Miconazole Nitrate (Monistat-Derm, Micatin) 1 applic TOPICAL TID [facility] Last Admin: 08/22/18 06:48 Dose: Not Given Documented by: Morphine Sulfate () 1 - 2 mg IV Q4H PRN PRN PRN Reason: PAIN Ondansetron HCl (Zofran) 4 mg IV Q8H PRN PRN PRN Reason: NAUSEA/VOMITING Oxycodone HCl (Oxyir) 5 mg PO Q6H PRN PRN PRN Reason: pain Last Admin: 08/22/18 01:44 Dose: 5 mg Documented by: Pantoprazole Sodium (Protonix) 40 mg PO DAILY [facility] Last Admin: 08/21/18 09:20 Dose: 40 mg Documented by: Polyethylene Glycol (Miralax) 17 gm PO BID [facility] Last Admin: 08/21/18 21:27 Dose: 17 gm Documented by: Senna/Docusate Sodium (Senokot-S, Rocio-Colace) 1 tablet PO BID [facility] Last Admin: 08/21/18 21:10 Dose: 1 tablet Documented by: Sodium Chloride () 5 - 15 ml IV UD PRN PRN Reason: SALINE FLUSH Last Admin: 08/20/18 03:43 Dose: 10 ml Documented by: Medical Necessity - Tobacco Use Smoking Status: Current every day smoker Tobacco Use: Cigarettes Assessment/Plan All Active Problems Influenzal bronchiolitis (Acute) Stroke (Acute) Bradycardia (Acute) Hypokalemia (Resolved) Norovirus (Resolved) CAP (community acquired pneumonia) (Ruled-out) Acute hyponatremia (Acute) This is a 73-year-old female, skilled nursing resident with multiple comorbidities including coronary artery disease, obstructive sleep apnea, intolerant to CPAP, chronic normocytic anemia, chronic hypoxic respiratory failure, hypertension, dyslipidemia asthma/COPD, bipolar disorder on lithium was admitted for slurred speech 2 days prior to admission along with difficulty in holding and mild facial droop. NIH stroke scale was 2. Patient lithium level was high 2.3. CT had did not show acute intracranial change. Patient was further admitted on PCU. 1. Mild lithium toxicity: Patient was seen by neurologist feels her symptoms are mainly due to lithium toxicity. [place] level have improved to 1.0. [place] on hold. Patient was put back on gabapentin lower dose 200 mg 3 times daily. MRI brain was done shows no acute intracranial bleed, mass or ischemia. MRA head shows bilateral M1 atherosclerotic plaque with questionable right anterioposterior cavernous carotid artery aneurysm. Neck MRA shows mild atherosclerotic plaque at the origin of bilateral ICA. TSH 0.08. Free T4 and free T3 normal. 2. Severe sinus bradycardia with sinus pause: Troponin is normal. Electrolytes K4.3. Magnesium 2.0, phosphorus 3.2. Twelve-lead EKG was done and shows sinus bradycardia with chronic T inversion as seen in previous EKGs. Rn Internal Medicine consult reviewed and appreciated. Needs Holter monitor for 48 hours after discharge. Gram-negative moiz lactose machine inspector asymptomatic bacteriuria: Urine culture shows gram-negative moiz lactose machine inspector more than 100,000. UA shows pyuria more than 100 cells, LE 500. Nitrite positive. Empirically started on IV Rocephin. Patient denies dysuria or increased frequency and she is urinary incontinent. 3. Bipolar disorder: I called psychiatrist Dr. Griffin. [phone] left voice message to call back. As patient is getting restless and she states he gets very high therefore started on Depakote 250 mg 3 times daily. 4. COPD 5 . Chronic respiratory failure with hypoxemia 6. Coronary artery disease with no history of PCI, treated medically 7. Hypertension 9. Nicotine dependence with cigarette smoking: Microbiology Past 72 Hours 08/21/18 21:30 Urine, Clean Catch Urine Culture - Preliminary GNR lactose machine inspector Laboratory Results 08/22/18 10:53: [place] 1.00 08/22/18 10:53: Sodium 141, Potassium 4.3, Chloride 114 H, Carbon Dioxide 24.0, Anion Gap 3 L, BUN 7, Creatinine 0.77, Estim Creat Clear Calc 42.07, Est GFR (MDRD) Af Amer 95, Est GFR (MDRD) Non-Af 78, BUN/Creatinine Ratio 9.1 L, Glucose 127 H, Calcium 9.9, Magnesium 2.0, Troponin I < 0.015 08/22/18 10:53: Phosphorus 3.2 08/20/18 18:40: Urine Color Yellow, Urine Clarity Cloudy, Urine pH 6.5, Ur Specific [place] 1.015, Urine Protein 30 H, Urine Glucose (UA) Normal, Urine Ketones Negative, Urine Occult Blood 50 H, Urine Nitrite Positive H, Urine Bilirubin Negative, Urine Urobilinogen Normal, Ur Leukocyte Esterase 500 H, Urine RBC 0 SEEN, Urine WBC >100 SEEN, Ur Squamous Epith Cells 0-5 SEEN, Ur Transition Epith Cell 0-5 SEEN, Urine Bacteria 4+, Urine Mucus 0 SEEN 08/21/18 05:20: [place] 1.60 H* Clinical Impression(s) from Imaging Studies Brain CT 08/19/18 22:41 IMPRESSION: Stable head CT, no acute intracranial abnormality. If there is a high clinical suspicion of an acute infarction and further imaging is warranted recommend MRI with diffusion-weighted images. Chest X-Ray 08/19/18 22:48 IMPRESSION: Stable cardiac enlargement and chronic interstitial lung disease. No pulmonary edema, congestive heart failure or confluent pneumonia. Other nonacute findings as outlined above. Brain MRI 08/20/18 02:54 IMPRESSION: Mild senescent changes with no evidence of acute intracranial bleed, mass or ischemia. Head MRA 08/20/18 02:54 IMPRESSION: 1. Bilateral M1 atherosclerotic changes with question of right anterior posterior cavernous carotid artery outpouching concerning for aneurysm though limited by technique. Recommend CTA head for further assessment and evaluation. Otherwise no evidence of significant steno-occlusive disease. Neck MRA 08/20/18 12:45 IMPRESSION: There is mild atherosclerotic plaque of the origin of the bilateral internal carotid arteries . Consider CTA of the neck for more accurate characterization of the degree of stenosis. Code Visit Inpatient E&M: 90556 Subs Hosp L3
[2018-08-22 11:23] LABS: Phosphorus 3.2 mg/dL (2.5-4.9)
[2018-08-22 11:24] LABS: Anion Gap 3 (5-15); BUN 7 mg/dL (7-18); BUN/Creat Ratio 9.1 RATIO (10-20); Calcium,Total 9.9 mg/dL (8.5-10.1); Chloride 114 mmol/L (98-107); Creatinine, Serum 0.77 mg/dL (0.55-1.02); EST Glomerular Filtration Rate 78 mL/min (>60); Est Glom Filt Rate - Afr Amer 95 mL/min (>60); Estimated Creatinine Clearance 42.07 ml/min; Glucose 127 mg/dL (74-106); Potassium 4.3 mmol/L (3.5-5.1); Sodium Level 141 mmol/L (136-145)
[2018-08-22] MEDS: Aspirin E.C. 81 MG Tablet PO (11:33)
[2018-08-22] MEDS: Enoxaparin 40 MG/0.4 ML Syringe SC (11:33)
[2018-08-22] MEDS: Pantoprazole Sodium 40 MG Tablet PO (11:34)
[2018-08-22] MEDS: Senna/Docusate Sodium 1 Tablet PO ×2 (11:34→21:46)
--- NOTE | 2018-08-22 13:17 | CON.PCM_ITS ---
Problem List (1) Bradycardia Status: Acute Reason for Consult Date of Consultation: 08/22/18 History of Present Illness: The patient is a 73 year old F [admitted with slurred speech. Initially stroke was suspected. However stroke work-up was negative and patient's lithium level was high. Patient's lithium dose had been increased about 4 days prior to presentation. Patient's lithium level has come down and her slurred speech has improved. Patient was bradycardic on arrival and has continued to be bradycardic and so cardiology consult was requested. Patient's longest R-R interval was 2.8 seconds. Review of EKGs from March 2018 revealed sinus bradycardia at that time as well. [place] level at that time was within therapeutic limits. Patient denies any symptoms that could be attributable to bradycardia. She says that she had a heart cath at [facility] and no stent was placed. She had an echocardiogram during this admission which reveals preserved LV systolic function. Review of systems: All systems reviewed all else is negative except that in the HPI] Past Medical History Allergies/Adverse Reactions: Allergies No Known Allergies Allergy (Verified 02/24/18 16:55) Home Medications: Ambulatory Orders Medication Instructions Recorded Aspirin [Lo-Dose Aspirin EC] 81 mg PO DAILY 02/23/16 Atorvastatin Calcium [Lipitor] 40 mg PO QHS 02/23/16 Benzonatate [Tessalon Perle] 200 mg PO TID PRN PRN 02/23/16 Fluphenazine HCl [Prolixin] 10 mg PO QHS 02/23/16 Furosemide [Lasix] 60 mg PO DAILY 02/23/16 Lorazepam [Ativan] 1 mg PO Q8H PRN 02/23/16 Losartan Potassium [Cozaar] 100 mg PO DAILY 02/23/16 Multivitamin [Daily Multiple 1 each PO DAILY 02/23/16 Vitamin] Esomeprazole Mag Trihydrate 40 mg PO DAILY 12/18/16 [Nexium] Diphenhydramine HCl [Banophen] 25 mg PO QHS PRN 02/24/18 Folic Acid 1 mg PO DAILY 02/24/18 Melatonin 5 mg PO QHS PRN 02/24/18 Cholecalciferol (VIT D3) [Vitamin 1,000 unit PO DAILY 04/21/18 D] Cyanocobalamin [Vitamin B12] 3,000 mcg PO DAILY@0800 04/21/18 Metoprolol Succinate 150 mg PO DAILY 04/21/18 Sennosides/Docusate Sodium [Senna 1 each PO BID 04/21/18 Plus Tablet] Acetaminophen [Tylenol Extra 500 - 1,000 mg PO Q6H PRN PRN 08/20/18 Strength] Bisacodyl [Dulcolax] 10 mg RECTAL DAILY PRN 08/20/18 Carboxymethylcellulose Sodium 1 drp EACH EYE DAILY PRN 08/20/18 [Refresh Tears] Fluphenazine HCl 10 mg PO DAILY 08/20/18 Gabapentin [Neurontin] 400 mg PO TID 08/20/18 Haloperidol 5 mg PO Q6H PRN PRN 08/20/18 [place] Carbonate 300 mg PO TID 08/20/18 Magnesium Hydroxide [Milk Of 30 ml PO DAILY PRN 08/20/18 Magnesia] Miconazole 1 applicatio TOPICAL TID 08/20/18 Oxycodone HCl 5 mg PO Q6H PRN PRN 08/20/18 Polyethylene Glycol 17 gm PO BID 08/20/18 Spironolactone [Aldactone] 25 mg PO DAILY 08/20/18 Past Medical History (Chronic Problems): Chronic Problems Tobacco use (Chronic) COPD (chronic obstructive pulmonary disease) (Chronic) Chronic respiratory failure with hypoxia (Chronic) CAD (coronary artery disease) (Chronic) Hyperlipidemia (Chronic) Anxiety (Chronic) Hypertension (Chronic) Chronic bronchitis (Chronic) Bipolar disorder (Chronic) Constipation due to opioid therapy (Chronic) Chronic hyponatremia (Chronic) Current chronic use of systemic steroids (Chronic) Surgical History: total knee arthroplasty - Bilateral, - - Right shoulder surgeries, bilateral tubal ligation, right total hip replacement, bilateral total knee replacement, tonsillectomy. 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 Lives: [facility] Smoking Status: Current every day smoker Tobacco Use: Cigarettes Alcohol: None Drugs: None Objective: Vital Signs Temp Pulse Resp BP Pulse Ox 98.0 F 70 16 149/76 H 97 08/22/18 12:10 08/22/18 13:02 08/22/18 13:02 08/22/18 12:10 08/22/18 12:10 Oxygen Flow Rate (L/min) 3 Oxygen Delivery Method Nasal Cannula Weight: 200 lb 2.876 oz Body Mass Index (BMI) 35.4 Finger Stick Blood Glucose 100 Intake and Output for Last 24 Hours 08/20/18 08/21/18 08/22/18 23:59 23:59 23:59 Intake Total 1908 / 2182 2988 / 2988 1030 / 1030 Output Total 950 / 950 500 / 500 550 / 550 Balance 958 / 1232 2488 / 2488 480 / 480 General: Awake, Alert, Oriented x 3 HEENT: Atraumatic Oral: Moist Mucosa Neck: Supple Lungs: Clear to auscultation Cardiovascular: Normal S1, Normal S2 Abdomen: Soft Extremities: No edema Skin: No Rashes Psych/Mental Status: Appropriate 08/22/18 10:53: Sodium 141, Potassium 4.3, Chloride 114 H, Carbon Dioxide 24.0, Anion Gap 3 L, BUN 7, Creatinine 0.77, Est GFR (MDRD) Af Amer 95, Est GFR (MDRD) Non-Af 78, BUN/Creatinine Ratio 9.1 L, Glucose 127 H, Calcium 9.9, Magnesium 2.0, Troponin I < 0.015 08/22/18 10:53: Phosphorus 3.2 Rhythm: EKG: ECHO: Stress Test: Cardiac Cath: PCI: CT Surgery: Holter monitor: EPS: PPM: CXR: Chest CT Scan: Assessment/Plan 1. Bradycardia: Patient has had bradycardia with rates going down into the 30s. However she has remained asymptomatic from this. She has had bradycardia even when her lithium level was less than 1 back in March of this year. It will be reasonable to send patient home on a 48-hour Holter to see if she has any further significant episodes that may necessitate further steps. At this time she has asymptomatic bradycardia and it would be reasonable to monitor her without a pacemaker. Continue telemetry monitoring at this time. We will reevaluate overnight telemetry tomorrow to see if there needs to be a change in plans.
--- NOTE | 2018-08-22 14:03 | CASEMGMT ---
NICOLE called [facility] and Celia was busy. NICOLE asked that they let her know patient will not be returning today. Farida JOHNSON MSW
[2018-08-22] MEDS: Divalproex Sodium 250 MG Tablet PO (17:27)
[2018-08-22] MEDS: Atorvastatin Calcium 40 MG Tablet PO (21:45)
[2018-08-22] MEDS: LORazepam 1 MG Tablet PO (21:46)
[2018-08-23] VITALS (10 sets, daily range): BP systolic 131–147; BP diastolic 74–95; PULSE 61–100; RESP 14–20; TEMP 36.6–37; O2SAT 92–98; BMI 35.4
[2018-08-23] MEDS: oxyCODONE 5 MG Tablet PO (03:54)
[2018-08-23] MEDS: Gabapentin 400 MG Capsule PO ×2 (06:10→15:37)
[2018-08-23] MEDS: Ipratropium/Albuterol Sulfate 3 ML AMPUL.NEB INHALATION ×2 (07:25→13:40)
[2018-08-23] MEDS: Divalproex Sodium 250 MG Tablet PO ×3 (09:51→16:43)
[2018-08-23] MEDS: Enoxaparin 40 MG/0.4 ML Syringe SC (09:51)
[2018-08-23] MEDS: Aspirin E.C. 81 MG Tablet PO (09:51)
[2018-08-23] MEDS: Pantoprazole Sodium 40 MG Tablet PO (09:51)
[2018-08-23] MEDS: Senna/Docusate Sodium 1 Tablet PO (09:52)
[2018-08-23] MEDS: Ceftriaxone 1 GM/50 ML BAG IV (09:52)
--- NOTE | 2018-08-23 10:45 | PCM.PN.CARD ---
Subjectve: Doing well from a cardiac standpoint. Telemetry was reviewed and no significant pauses noted. Objective: Vital Signs Temp Pulse Resp BP Pulse Ox 98.3 F 86 16 131/74 H 97 08/23/18 09:33 08/23/18 09:33 08/23/18 09:33 08/23/18 09:33 08/23/18 09:33 Oxygen Flow Rate (L/min) 2 Oxygen Delivery Method Room Air Weight: 200 lb 2.876 oz Body Mass Index (BMI) 35.4 Finger Stick Blood Glucose 100 Intake and Output for Last 24 Hours 08/21/18 08/22/18 08/23/18 23:59 23:59 23:59 Intake Total 2988 / 2988 1676.3 / 1676.3 0 / 0 Output Total 500 / 500 1550 / 1550 0 / 0 Balance 2488 / 2488 126.3 / 126.3 0 / 0 General: Awake, Alert, Oriented x 3 HEENT: Atraumatic Oral: Moist Mucosa Neck: Supple Lungs: Clear to auscultation Cardiovascular: Normal S1, Normal S2 Abdomen: Soft Extremities: No edema Skin: No Rashes 08/22/18 10:53: Sodium 141, Potassium 4.3, Chloride 114 H, Carbon Dioxide 24.0, Anion Gap 3 L, BUN 7, Creatinine 0.77, Est GFR (MDRD) Af Amer 95, Est GFR (MDRD) Non-Af 78, BUN/Creatinine Ratio 9.1 L, Glucose 127 H, Calcium 9.9, Magnesium 2.0, Troponin I < 0.015 08/22/18 10:53: Phosphorus 3.2 Rhythm: EKG: ECHO: Stress Test: Cardiac Cath: PCI: CT Surgery: Holter monitor: EPS: PPM: CXR: Chest CT Scan: Medical Necessity - Tobacco Use Smoking Status: Current every day smoker Tobacco Use: Cigarettes Assessment/Plan 1. Bradycardia: No significant pauses noted on telemetry overnight. Patient has remained asymptomatic even with bradycardia with heart rate in the 30s. I think it will be okay from a cardiac standpoint to discharge her with a Holter monitor if possible. She can follow-up with us as an outpatient.
--- NOTE | 2018-08-23 11:06 | CASEMGMT ---
Social Work SW did not complete PHQ9 as physician does not feel pt had a stroke/TIA. PETRONA Mendez
--- NOTE | 2018-08-23 11:26 | PCM.TXEXTCAR ---
- Diet 08/20/18 11:47 Diet: Cardiac/Low Cholesterol Food consistency:: Puree Liquid Consistency:: [place] Thick Is pt able to select menu?: No Diet Comments: supervision/feed, must be seated at 90 degrees, liquid by straws - Routine Orders/Code Status Suppository Type: Dulcolax 10mg Suppository Frequency: Daily PRN Routine Lab Work: BMP - ON 08/26/18 and follow up PCP Code Status: Full Code - Therapies Extremity Affected:: Bilateral Lower Physical Therapy: Eval and Treat Occupational Therapy: Eval and Treat Speech Therapy: Eval and Treat - Allergies/Procedures Done in Hospital Allergies/Adverse Reactions: Allergies No Known Allergies Allergy (Verified 02/24/18 16:55) - Type of Care/Length of Stay Estimated LOS: Convalescent Care Less Than 30 days Type of Care Needed: Skilled Rehab Potential: Good Prognosis: Good - Additional Orders/Day of Discharge Additional Orders: Follow-up with the psychiatrist Dr. Griffin on 08/26/2018. Advised to talk for the potential lamotrigine as a mood stabilizer in place of Depakote as Depakote has side effect of tremors too. Day of Discharge: 08/23/18 - Dietary and Speech Recommendations Dietitian Recommendations/Changes: Suggest advance diet as tolerated to Cardiac with texture/consistency as per BIG DATA HADOOP DEVELOPER. - Follow Up Care Primary Care Physician: Steve Aguirre [Primary Care Provider] - Please follow up with your Primary Care Physician in: [place] 1-2 week
--- NOTE | 2018-08-23 11:30 | DS.PCM_ITS ---
Discharge Date and Diagnosis - Problem List Patient Problems: Active and Suspected Problems Stroke (Acute) Bradycardia (Acute) Date of Admission: 08/20/18 Date of Discharge: 08/23/18 - Primary Discharge Diagnosis Active and Suspected Problems Stroke (Acute) Bradycardia (Acute) - Secondary Discharge Diagnosis Chronic Problems Tobacco use (Chronic) COPD (chronic obstructive pulmonary disease) (Chronic) Chronic respiratory failure with hypoxia (Chronic) CAD (coronary artery disease) (Chronic) Hyperlipidemia (Chronic) Anxiety (Chronic) Hypertension (Chronic) Chronic bronchitis (Chronic) Bipolar disorder (Chronic) Constipation due to opioid therapy (Chronic) Chronic hyponatremia (Chronic) Current chronic use of systemic steroids (Chronic) Hospital Course and Treatment Operations: None Summary of Care Provided: [] This is a 73-year-old female, detention resident with multiple comorbidities including coronary artery disease, obstructive sleep apnea, intolerant to CPAP, chronic normocytic anemia, chronic hypoxic respiratory failure, hypertension, dyslipidemia asthma/COPD, bipolar disorder on lithium was admitted for slurred speech 2 days prior to admission along with difficulty in holding and mild facial droop. NIH stroke scale was 2. Patient lithium level was high 2.3. CT had did not show acute intracranial change. Patient was further admitted on PCU. 1. Mild lithium toxicity: Patient was seen by neurologist feels her symptoms are mainly due to lithium toxicity. [place] level have improved to 1.0. [place] on hold. Patient was put back on gabapentin lower dose 200 mg 3 times daily. MRI brain was done shows no acute intracranial bleed, mass or ischemia. MRA head shows bilateral M1 atherosclerotic plaque with questionable right anterioposterior cavernous carotid artery aneurysm. Neck MRA shows mild atherosclerotic plaque at the origin of bilateral ICA. Patient symptoms of tremor, restlessness and anxiety is much improved. [place] is discontinued. TSH 0.08. Free T4 and free T3 normal. 2. Severe sinus bradycardia with sinus pause: Troponin is normal. Electrolytes K4.3. Magnesium 2.0, phosphorus 3.2. Twelve-lead EKG was done and shows sinus bradycardia with chronic T inversion as seen in previous EKGs. Comfort Advisor consult reviewed and appreciated. Needs Holter monitor for 48 hours after discharge. 3. Gram-negative moiz lactose manager specialty asymptomatic bacteriuria: UTI ruled out. Patient specifically denies history of burning micturition/dysuria, increased frequency urgency although she has chronic urinary incontinence. Overall, it seems patient had asymptomatic bacteria and antibiotic was stopped although she 3 doses of IV ceftriaxone. Urine culture shows gram-negative moiz lactose manager specialty more than 100,000. UA shows pyuria more than 100 cells, LE 500. Nitrite positive. 4. Bipolar disorder: I called psychiatrist Dr. Griffin. [phone] and talk to his PA because she is off on Sunday, today Mr. Qasim Bridges. He agrees with the plan of discharging on Depakote 250 mg 3 times daily and follow-up on February 26, 2018. I also discussed that patient may be considered for lamotrigine as advised by neurologist because lamotrigine is well-tolerated and does not have tremors as side effect. Depakote has mild tremor as side effect. 4. COPD 5 . Chronic respiratory failure with hypoxemia 6. Coronary artery disease with no history of PCI, treated medically 7. Hypertension 9. Nicotine dependence with cigarette smoking: Discharge medication reconciliation done. Discharge follow-up instructions completed. Discharge process discussed with the patient and all questions were answered to patient's satisfaction. Patient was advised to follow-up to psychiatrist as mentioned above for detailed psychiatric evaluation and select on mood stabilizer drug. Total time spent, exact 35 minutes on discharge meds reconciliation, examination, review of imaging and blood test and discussion with the patient on follow-up instructions. Patient Problems: Active and Suspected Problems Stroke (Acute) Bradycardia (Acute) Subjective: Seen and examined. Patient has better mood control; not feeling very high, mood swing on Depakote 250 mg 3 times daily. Talk to the patient's psychiatrist PA Mr. Qasim Bridges. He agrees with the plan on discharging on Depakote and follow-up on coming Sunday to further evaluate for mood stabilization. She denies burning micturition, increased frequency urgency as this could not be obtained yesterday because of her hypomanic symptoms. Objective: General: Alert, Oriented x3, Cooperative HEENT: Atraumatic, PERRLA, EOMI, Normocephalic Neck: Supple, No JVD, Negative Carotid Bruits Lungs: Clear to auscultation, No rhonchi, No wheeze, No rales, Diminished Cardiovascular: Regular Rhythm, Normal S1, Normal S2, No murmurs, heart rate in 70s to 80s per minute. No sinus pause observed on telemetry. Abdomen: Bowel Sounds Present, Soft, Non Tender, Non-Distended Extremities: No edema, Capillary Refill Less than 3 Seconds Skin: No rashes, No breakdown Musculoskeletal: No Tenderness to Palpation of Joints or Extremities, Arthritic Changes, - - Bilateral TKR scar Neurological: Cranial nerves II-XII grossly intact, Deep Tendon Reflexes 2/4 and Symmetrical - DTRs 2+., Neuro grossly intact, Motor Exam 5/5 strength throughout Psych/Mental Status: Normal Affect, Appropriate - Physical Exam Vital Signs Temp Pulse Resp BP Pulse Ox 98.3 F 65 16 131/74 H 95 08/23/18 09:33 08/23/18 10:00 08/23/18 10:00 08/23/18 09:33 08/23/18 10:00 Oxygen Flow Rate (L/min) 2 Oxygen Delivery Method Room Air Weight: 200 lb 2.876 oz Body Mass Index (BMI) 35.4 Finger Stick Blood Glucose 100 Intake and Output for Last 24 Hours 08/21/18 08/22/18 08/23/18 23:59 23:59 23:59 Intake Total 2988 / 2988 1676.3 / 1676.3 0 / 0 Output Total 500 / 500 1550 / 1550 0 / 0 Balance 2488 / 2488 126.3 / 126.3 0 / 0 Microbiology Past 72 Hours 08/21/18 21:30 Urine Culture - Final Urine, Clean Catch Klebsiella pneumoniae sp pneum Laboratory Tests Past 24 Hrs 08/22/18 10:53 [place] 1.00 Home Medications: Medications to take at Discharge Aspirin [Lo-Dose Aspirin EC] 81 mg PO DAILY 02/23/16 Atorvastatin Calcium [Lipitor] 40 mg PO QHS 02/23/16 Benzonatate [Tessalon Perle] 200 mg PO TID PRN PRN 02/23/16 Fluphenazine HCl [Prolixin] 10 mg PO QHS 02/23/16 Furosemide [Lasix] 60 mg PO DAILY 02/23/16 Lorazepam [Ativan] 1 mg PO Q8H PRN 02/23/16 Losartan Potassium [Cozaar] 100 mg PO DAILY 02/23/16 Multivitamin [Daily Multiple Vitamin] 1 each PO DAILY 02/23/16 Esomeprazole Mag Trihydrate [Nexium] 40 mg PO DAILY 12/18/16 Diphenhydramine HCl [Banophen] 25 mg PO QHS PRN 02/24/18 Folic Acid 1 mg PO DAILY 02/24/18 Melatonin 5 mg PO QHS PRN 02/24/18 Cholecalciferol (VIT D3) [Vitamin D3] 1,000 unit PO DAILY 04/21/18 Cyanocobalamin [Vitamin B12] 3,000 mcg PO DAILY@0800 04/21/18 Metoprolol Succinate 150 mg PO DAILY 04/21/18 Sennosides/Docusate Sodium [Senna Plus Tablet] 1 each PO BID 04/21/18 Acetaminophen [Tylenol] 500 - 1,000 mg PO Q6H PRN PRN 08/20/18 Bisacodyl [Dulcolax] 10 mg RECTAL DAILY PRN 08/20/18 Carboxymethylcellulose Sodium [Refresh Tears] 1 drp EACH EYE DAILY PRN 08/20/18 Fluphenazine HCl 10 mg PO DAILY 08/20/18 Gabapentin [Neurontin] 400 mg PO TID 08/20/18 Haloperidol 5 mg PO Q6H PRN PRN 08/20/18 Magnesium Hydroxide [Milk Of Magnesia] 30 ml PO DAILY PRN 08/20/18 Miconazole 1 applicatio TOPICAL TID 08/20/18 Oxycodone HCl 5 mg PO Q6H PRN PRN 08/20/18 Polyethylene Glycol 17 gm PO BID 08/20/18 Spironolactone [Aldactone] 25 mg PO DAILY 08/20/18 Albuterol Aerosols [Ventolin Aerosols] 2.5 mg INHALATION Q2H PRN PRN vial.neb. 08/23/18 Divalproex Sodium [Depakote] 250 mg PO TIDCM #20 tab 08/23/18 Following Prescrptions Were Given to Patient: Divalproex Sodium [Depakote] 250 mg PO TIDCM #20 tab Prescription Printed Primary Care Physician: Steve Aguirre [Primary Care Provider] - Please follow up with your Primary Care Physician in: [place] 1-2 week Medical Necessity - Tobacco Use Smoking Status: Current every day smoker Tobacco Use: Cigarettes Meaningful Use Info Meaningful Use Diagnoses (Choose all that apply): None applicable Code Visit Inpatient E&M: [id number] [facility]
--- NOTE | 2018-08-23 12:39 | CASEMGMT ---
Addendum entered by Beverley Song 08/23/18 14:19: Pt requiring procedure prior to d/c and will not be ready by 3:00. Call to [facility] and they do not have any later availability. Call to [facility] and [facility], pt, facility and family notified of change. PETRONA Mendez Original Note: Social Work Per physician, pt ready for d/c today, pt to return to [facility]. Transportation arranged with [facility] for 3:00 pickling operator. Orders faxed and phone call to facility with time of d/c. Phone call to pt inderjit [facility] and notified of d/c and spoke with pt and informed of d/c and time. Pt is agreeable to d/c. Nursing notified. No further SW needs. PETRONA Mendez
--- NOTE | 2018-08-23 12:57 | PCM.PN.NEU ---
Patient Problems: Active and Suspected Problems Stroke (Acute) Bradycardia (Acute) Subjective: No issues overnight. Patient denies any slurred speech at present. [place] level normal. MRI brain reported no acute stroke. - Physical Exam General: Alert HEENT: Normocephalic Neck: Supple Lungs: Normal air movement Cardiovascular: Normal S1, Normal S2 Abdomen: Bowel Sounds Present Extremities: No cyanosis Neurological: Cranial nerves II-XII grossly intact, Deep Tendon Reflexes 2+/4 and Symmetrical, Neuro grossly intact, Motor Exam 5/5 strength throughout, Muscle tone normal, Sensory exam intact to light touch and pain, Coordination normal, - - Intermittent action tremors in both hands, tone normal with upper extremities Psych/Mental Status: Normal Affect Vital Signs Temp Pulse Resp BP Pulse Ox 98.3 F 65 16 131/74 H 95 08/23/18 09:33 08/23/18 10:00 08/23/18 10:00 08/23/18 09:33 08/23/18 10:00 Oxygen Flow Rate (L/min) 2 Oxygen Delivery Method Room Air Weight: 90.8 kg Body Mass Index (BMI) 35.4 Finger Stick Blood Glucose 100 Intake and Output for Last 24 Hours 08/21/18 08/22/18 08/23/18 23:59 23:59 23:59 Intake Total 2988 / 2988 1676.3 / 1676.3 0 / 0 Output Total 500 / 500 1550 / 1550 0 / 0 Balance 2488 / 2488 126.3 / 126.3 0 / 0 Microbiology Past 72 Hours 08/21/18 21:30 Urine Culture - Final Urine, Clean Catch Klebsiella pneumoniae sp pneum Medical Necessity - Tobacco Use Smoking Status: Current every day smoker Tobacco Use: Cigarettes Assessment/Plan All Active Problems Influenzal bronchiolitis (Acute) Stroke (Acute) Bradycardia (Acute) Hypokalemia (Resolved) Norovirus (Resolved) CAP (community acquired pneumonia) (Ruled-out) Acute hyponatremia (Acute) 73-year-old female with PMH HTN, HLD, CAD, asthma/COPD, obesity, anxiety/depression, bipolar disorder, tobacco abuse, chronic back pain, senior living resident admitted on 08/20/2018 with slurred speech and difficulty walking, MRI brain done on admission did not show any acute stroke, but lithium level was high at 2.30. Patient symptoms of slurred speech improved as lithium levels normalized. Per patient she has been wheelchair-bound for long time. Patient also complains of action tremors intermittently. Patient started on Depakote for bipolar mood disorder by hospitalist/psychiatrist. Impression Likely lithium toxicity Possible medication induced tremors ? Right cavernous carotid aneurysm Plan ?MRI brain report reviewed no acute stroke ?MRA head/neck reported to show bilateral M1 atherosclerotic changes with question of right anterior posterior cavernous carotid artery outpouching concerning for aneurysm though limited by technique. Mild atherosclerotic plaque of the origin of the bilateral internal carotid arteries. ?Consider CTA head/neck for possible aneurysm evaluation and neurosurgery consultation ?Patient's tremors could possibly be secondary to medications like lithium or Depakote. Will try to avoid these medications for bipolar mood disorder as other alternative medications are available. But will defer evaluation and management decision to the hospitalist team and patient psychiatrist. ?Labs reviewed ?PT/OT/ST ?GI/DVT prophylaxis ?Fall precautions ?Further medical management per hospitalist team ?Please call with questions if any ?Thank you for allowing us to participate in patient's care and management
--- NOTE | 2018-08-23 13:08 | CT_ITS ---
STUDY: CTA NECK WITH CONTRAST REASON FOR EXAM: Female, 73 years old. ANEURYSM Abdomen and RADIATION DOSAGE (If Supplied By Facility): CTDIvol = ( 28.31 ) mGy, DLP = ( 1496.25 ) mGycm TECHNIQUE: CT angiography with multi-detector data acquisition was performed from the aortic arch to the skull base following intravenous administration of 100 IV Isovue 370. MIP images were reconstructed from the axial data set. Post-processing of the angiographic images was performed, with multiplanar reformation and 3D reconstruction. Individualized dose optimization techniques were used for this CT. COMPARISON: Numerous prior studies including MRI 08/20/2018. FINDINGS: The exam is significantly limited by markedly were bolus timing. Most of the contrast is still in the right subclavian vein and SVC. There is relatively little opacification of the arteries. AORTIC ARCH: There is atherosclerotic calcific plaque formation of the aortic arch and great vessels arising from the aortic arch, without a hemodynamically significant stenosis. There is a normal origin of the brachiocephalic, left common carotid, and left subclavian arteries. RIGHT CAROTID ARTERIES: There is atherosclerotic plaque formation of the common carotid artery, but without a hemodynamically significant stenosis. There is moderate atherosclerotic plaque formation with moderate narrowing of the right carotid bulb. There is moderate atherosclerotic plaque formation of the origin of the right internal carotid artery with an estimated stenosis of 50-69% stenosis. Normal visualized cervical portion of the right internal carotid artery. Normal origin of the right external carotid artery (ECA). LEFT CAROTID ARTERIES: There is atherosclerotic plaque formation of the common carotid artery, but without a hemodynamically significant stenosis. There is moderate atherosclerotic plaque formation with moderate narrowing of the carotid bulb. There is extensive atherosclerotic plaque formation of the origin of the left internal carotid artery with an estimated stenosis of greater than 70%. Normal visualized cervical portion of the left internal carotid artery. Normal origin of the left external carotid artery (ECA). VERTEBRAL ARTERIES: Normal bilateral vertebral arteries. CT/CTA Neck W/WO Contrast IMPRESSION: Very limited by markedly suboptimal contrast bolus. Bilateral prominent calcified plaque of the carotid arteries. Moderate grade stenosis of the right ICA. Severe stenosis of left ICA. Electronically Signed: Sonido Howell MD at 16:07 EDT , Service support ,
--- NOTE | 2018-08-23 13:08 | CT_ITS ---
STUDY: CT BRAIN WITH AND WITHOUT CONTRAST REASON FOR EXAM: Female, 73 years old. Aneurysm RADIATION DOSAGE (If Supplied By Facility): CTDIvol = ( 28.31 ) mGy, DLP = ( 1496.25 ) mGycm TECHNIQUE: Transaxial CT imaging of the brain was performed pre and post contrast administration. The examination was performed with intravenous administration of 100 IV Isovue 370. Individualized dose optimization techniques were used for this CT. COMPARISON: None. FINDINGS: Normal soft tissue structures. Normal calvarium. Normal size ventricles and extra-axial spaces for the patient's age. Normal white matter tracts of the cerebral hemispheres. Normal basal ganglia and thalami. Normal brainstem. Normal cerebellum. Mild carotid artery calcifications. There is no intracranial hemorrhage. There are no findings of an acute ischemic infarction. Normal visualized paranasal sinuses. CT/CTA Head W/WO Contrast IMPRESSION: Normal unenhanced and enhanced CT scan of the brain. Mild internal carotid artery calcifications. Negative for aneurysm. Electronically Signed: Chinyere Robbins MD at 15:26 EDT , Service support ,
[2018-08-23] MEDS: Acetaminophen 325 MG Tablet 650 MG PO (15:40)
--- NOTE | 2018-08-23 16:37 | NURSING ---
REPORT CALLED TO HANNAH KAY AT THE [facility].
== END 2018-08-23 17:17 | DRG 92 ==
LOC: ED 08-20 01:04 → ICU 08-20 02:19 → PCU 08-20 21:13
PROVIDERS: Internal Medicine; Admitting Provider Family Medicine; Emergency Provider Emergency Medicine; Family Provider Internal Medicine; PCP Internal Medicine; Visit Provider Internal Medicine
DX: R47.81 Slurred speech (principal); J96.11 Chronic respiratory failure with hypoxia; R29.810 Facial weakness; T43.595A Adverse effect of other antipsychotics and neuroleptics, initial encounter; D64.9 Anemia, unspecified; Z99.81 Dependence on supplemental oxygen; J44.9 Chronic obstructive pulmonary disease, unspecified; R00.1 Bradycardia, unspecified; F17.210 Nicotine dependence, cigarettes, uncomplicated; I25.10 Atherosclerotic heart disease of native coronary artery without angina pectoris; E78.5 Hyperlipidemia, unspecified; F31.9 Bipolar disorder, unspecified; E66.9 Obesity, unspecified; R82.71 Bacteriuria; I10 Essential (primary) hypertension; Z68.35 Body mass index [BMI] 35.0-35.9, adult
CPT/HCPCS: 36415; 70450; 70496; 70498; 70544; 70547; 70551; 71045; 80048; 80061; 80178; 81001; 82962; 83036; 83735; 84100; 84439; 84443; 84481; 84484; 85025; 85610; 85730; 87077; 87086; 87088; 87186; 92526; 92610; 93005; 93306; 94640; 97110; 97163; 97166; 97530; 97802; 99285; J7030; Q9967; A4216

== ENCOUNTER → 2018-08-23 15:36 | Outpatient (CLI) | payer MEDICARE, SELFPAY ==
[2018-08-23 00:36] VITALS: BMI 35.4
== END ==
PROVIDERS: Family Provider Internal Medicine; PCP Internal Medicine; Referring Provider Specialist; Visit Provider Specialist
DX: R00.1 Bradycardia, unspecified (principal)
CPT/HCPCS: 93225; 93226

== ENCOUNTER 2018-10-29 16:32 | Inpatient (IN) | payer MEDICARE, SELFPAY ==
[2018-08-23 00:36] VITALS: BMI 35.4
[2018-10-29 16:33] VITALS: BP 122/57; PULSE 76; RESP 18; TEMP 36.3; O2SAT 94; BMI 34.5
--- NOTE | 2018-10-29 17:06 | CT_ITS ---
STUDY: CT BRAIN WITHOUT CONTRAST REASON FOR EXAM: Female, [address] head August 23, 2018 RADIATION DOSAGE (If Supplied By Facility): DLP = ( 796.11 ) mGycm TECHNIQUE: Transaxial CT imaging of the brain was performed without administration of intravenous contrast material. Individualized dose optimization techniques were used for this CT. COMPARISON: CT brain August 23, 2018 FINDINGS: There is no acute bleed or infarct. There are normal white matter tracts. The ventricles are normal in configuration. There is no hydrocephalus. The visualized paranasal sinuses are clear. The mastoid air cells are well aerated. There is no skull fracture. CT/Brain/Head without Contrast IMPRESSION: No acute intracranial abnormality. Electronically Signed: Costa Nelson, at 18:01 EDT Tel , Service support ,
--- NOTE | 2018-10-29 17:07 | EKG12_ITS ---
Test Reason : FALL Blood Pressure : / mmHG Vent. Rate : 099 BPM Atrial Rate : 099 BPM P-R Int : 100 ms QRS Dur : 066 ms QT Int : 408 ms P-R-T Axes : 000 057 -38 degrees QTc Int : 523 ms Sinus rhythm with short [place] with Premature supraventricular complexes and with occasional and consecut jenise Premature ventricular complexes with junctional escape complexes Low voltage QRS Septal infarct , age undetermined ST & T wave abnormality, consider inferior ischemia Prolonged QT Abnormal ECG Electrical Artifact Confirmed by SHAKILA HOOPER ([id number]), features editor LUCINA SYED ([id number]) on 10/30/2018 1:34:59 PM Referred By: Georges Andrade Confirmed By:SHAKILA HOOPER
--- NOTE | 2018-10-29 17:10 | RAD_ITS ---
STUDY: X-RAY CHEST REASON FOR EXAM: Female, 73 years old. Falls TECHNIQUE: Frontal view of the chest COMPARISON: X-ray chest August 22, 2018 FINDINGS: Retrocardiac atelectasis and/or small infiltrate is present. The lungs are otherwise clear. There are no pleural effusions. There is no pneumothorax. The heart is normal in size. The visualized osseous structures are within normal limits. Left shoulder arthroplasty present. RAD/Chest 1 View (Portable) IMPRESSION: Retrocardiac atelectasis and/or small infiltrate. Electronically Signed: Costa Nelson, at 17:30 EDT Tel , Service support ,
--- NOTE | 2018-10-29 17:10 | ED.VIS.GEN ---
History of Present Illness Chief Complaint: Fall Informant: Patient, Family Onset: Today Narrative: She is a 73-year-old female with history of bipolar disorder recently switched from lithium to Depakote, hypertension, sepsis, electrode abnormalities, chronic respiratory failure, COPD and coronary artery disease resenting after mechanical fall with family. Fall was unwitnessed. Family states they heard her fall and then found her on the ground with her walker behind her. They state the patient is not supposed to get up on her own she is prone to falls. Patient did hit her head and does not remember the fall. Family notes that she is been more weak over the past week or so. They note she has had a cough in 2 weeks ago was found to have blood in her urine. She has not been on any antibiotics recently. They felt that she has been warm at home and are concerned she might have a fever. She had temperature of 100 the other day at her primary care doctor's office. Patient does complain of bilateral knee pain. She denies any other acute complaints at this time. She has had no reports of any vomiting or change in bowel habits. Patient denies any urinary frequency or dysuria. There is been no reports of any rashes. Patient is not on any blood thinners. Past Medical History - Allergies and Home Meds Allergies/Adverse Reactions: Allergies celecoxib [From Celebrex] Adverse Reaction (Verified 10/29/18 16:36) Other CONFUSION Past Medical History: - - Coronary artery disease, bipolar disorder Surgical History: total knee arthroplasty - Bilateral, - - Right shoulder surgeries, bilateral tubal ligation, right total hip replacement, bilateral total knee replacement, tonsillectomy. Smoking Status: Current every day smoker - Family History Offspring Family History: Reports: Pulmonary Disease - sarcoidosis, - - Adrenal insufficiency Maternal Family History: Reports: Heart Disease Paternal Family History: Reports: - - Patient notes a paternal family history of arthritis, no specific history of heart disease, diabetes or cancer noted. Review of Systems All systems negative except as indicated General: Reports: Chills, Fever, Malaise Respiratory: Reports: Cough Musculoskeletal: Reports: Arthralgias - knee pain after fall Psych: Reports: Depression Physical Exam Vital Signs/Narrative: Vital Signs Temp Pulse Resp BP Pulse Ox 10/29/18 16:33 97.3 F L 76 18 122/57 H 94 Inital Vital Signs reviewed: Yes General: Well nourished, Well developed, No Acute Distress Head: Normocephalic, Atraumatic Eyes: Perrl, EOMI ENT: No rhinorrhea, Dry mucous membranes Neck: Supple, Nontender Cardiovascular: Regular rate, Regular rhythm, Murmur Respiratory: No distress, CTA bilaterally, Chest nontender Abdomen: Soft, Nontender, Nondistended, Normal bowel sounds Back: Nontender, Normal Inspection. Negative for: CVA tenderness Extremities: No edema, Tenderness - bilateral knees, no deformity, normal ROM. Negative for: Edema Skin: Normal color, No rash Neurological: Alert, Cranial nerves II-XII grossly intact, Normal Strength, Normal Sensation Psychological: Depressed, - - flat affect Diagnostic/Tx/Re-eval Chest X-Ray - ED: Read by ED Physician, Read by Radiologist, - - Retrocardiac infiltrate - Rhythm Strip Rhythm Strip: Sinus Rhythm Rate: 66 - significant artifact - EKG Initial EKG Interpretation: Sinus Rhythm, - - Rate of 66 however machine read rate of 99 secondary to artifact PVCs present QT/QTc 408/523 LA interval 100 Normal axis Significant artifact compared to prior EKG Follow-up EKG Interpretation: Sinus Rhythm, - - Normal ST segments, improvement of artifact - Medical Decision Making She was evaluated after an unwitnessed fall. She appears nontoxic and in no acute distress. She is complaining of bilateral knee pain. X-ray does not show any acute process of her knees. CT head does not show any acute intracranial process. Patient has been feeling more weak over the past few days and has associated cough. There is been questionable fevers at home. X-ray shows a possible retrocardiac infiltrate. Patient will be treated for pneumonia based on her symptoms and x-ray findings. She does not have findings consistent with sepsis she does not have sirs criteria. Initial EKG obtained shows significant artifact however repeat EKG is much more normal. No findings consistent with ACS. Patient and family are agreeable to this plan. She is given Rocephin and Zithromax in the emergency room. Patient stable for the general medical floor at time of disposition. ED Disposition - Plan for ED Patient: Disposition: [facility] Diagnosis: Pneumonia, Fall
[2018-10-29 17:35] LABS: Absolute Lymphocyte Count 2.02 X10^3/uL (0.83-4.51); Absolute Neutrophil Count 6.4 X10^3/uL (2.0-7.7); Basophil# 0.06 X10^3/uL; Basophil% 0.6 % (0-1); Eosinophils% 2.1 % (0-5); Hemoglobin 11.6 g/dL (12.0-15.0); Lymphocyte # 2.02 X10^3/ul (4.0); Lymphocyte % 21.3 % (19-41); Mean Corp Hgb Conc 32.2 g/dL (32-36); Mean Corpuscular Hgb 29.1 pg (27.0-32.0); Mean Corpuscular Volume 90.5 fL (81-99); Mean Platelet Vol. 9.9 fl (6.2-12.0); Monocyte# 0.72 X10^3/uL; Monocyte% 7.6 % (0-10); NRBC Flagged by Analyzer 0 % (0-5); Neutrophil # 6.43 X10^3/uL (2.7-7.7); Platelet Count 289 K/mm3 (150-450); RBC Distribution Width CV 13.8 % (11.6-14.6); RBC Distribution Width SD 46.1 fl (35.1-43.9); Red Blood Count 3.98 M/mm3 (4.2-5.4); White Blood Count 9.5 K/mm3 (4.4-11.0)
--- NOTE | 2018-10-29 17:38 | RAD_ITS ---
STUDY: X-RAY - LEFT KNEE REASON FOR EXAM: Female, 73 years old. Bilateral knee pain TECHNIQUE: 2 view(s) of the knee. COMPARISON: None. FINDINGS: Total left knee arthroplasty is present. There is no evidence of fracture or dislocation. There are no significant degenerative changes. There are no radiodense foreign bodies. RAD/Knee 1 or 2 Views IMPRESSION: No fracture or dislocation. Total left knee arthroplasty. Electronically Signed: Costa Nelson, at 18:06 EDT Tel , Service support ,
[2018-10-29 17:39] LABS: Bacteria 0 SEEN /hpf (None Seen); Mucous, Urine 0 SEEN /hpf (<or=2+); Red Blood Cells-Urine 0 SEEN /hpf (0-5); Squamous Epithelial Cells - UA 0 SEEN /hpf (5-10)
[2018-10-29 17:46] LABS: Color, Urine Yellow (Yellow); Glucose, Dipstick Normal (Normal); Ketone-Dipstick Negative (Negative); Leukocyte Esterase-Dipstick 25 /ul (Negative); Nitrite-Dipstick Negative (Negative); Occult Blood-Urine 10 /ul (Negative); Protein-Dipstick Negative (Negative); Specific Gravity, Urine 1.005 (1.002-1.030); Urine Bilirubin Dipstick Negative (Negative); Urine Clarity Clear (Clear); Urine Urobilinogen Normal (Normal)
--- NOTE | 2018-10-29 17:50 | RAD_ITS ---
STUDY: X-RAY - RIGHT KNEE REASON FOR EXAM: Female, 73 years old. Pain TECHNIQUE: 2 view(s) of the knee. COMPARISON: None. FINDINGS: Total arthroplasty is present. There is no evidence of fracture or dislocation. There are no significant degenerative changes. There are no radiodense foreign bodies. RAD/Knee 1 or 2 Views IMPRESSION: No fracture or dislocation. Total right knee arthroplasty. Electronically Signed: Costa Nelson, at 18:07 EDT Tel , Service support ,
[2018-10-29 17:55] LABS: ALB/GLOB Ratio 0.8 RATIO (0.9-2.4); AST(SGOT) 11 U/L (15-37); Alanine Aminotransfer ALT/SGPT 13 U/L (13-56); Albumin, Serum 2.9 g/dL (3.2-5.0); Alkaline Phosphatase 109 U/L (45-117); Anion Gap 5 (5-15); BUN 9 mg/dL (7-18); Calcium,Total 9.8 mg/dL (8.5-10.1); Chloride 104 mmol/L (98-107); Creatinine, Serum 0.82 mg/dL (0.55-1.02); EST Glomerular Filtration Rate 73 mL/min (>60); Est Glom Filt Rate - Afr Amer 88 mL/min (>60); Globulin 3.7 g/dL (2.2-4.2); Glucose 102 mg/dL (74-106); Potassium 3.9 mmol/L (3.5-5.1); Protein, Total 6.6 g/dL (6.4-8.2); Sodium Level 138 mmol/L (136-145)
[2018-10-29 18:01] LABS: White Blood Cells 0-5 SEEN /hpf (0-5)
[2018-10-29 18:22] LABS: Valproic Acid (Depakene) Level 24 ug/mL (50-100)
[2018-10-29 18:52] VITALS: BP 143/68; PULSE 139; RESP 16; O2SAT 97
--- NOTE | 2018-10-29 19:45 | HP.PCM_ITS ---
Problem List (1) Tobacco use Status: Chronic (2) COPD (chronic obstructive pulmonary disease) Status: Chronic Qualifiers: COPD type: unspecified COPD Qualified Code(s): J44.9 - Chronic obstructive pulmonary disease, unspecified (3) Sepsis Status: Acute (4) Pneumonia Status: Acute History of Present Illness Date of Admission: 10/29/18 Chief Complaint: fever. The patient is a 73 year old F with a significant history of bipolar disorder; congestive heart failure; hypertension; and tobacco abuse who presented to the emergency department with a fever of 100 at home. Associated with her symptoms is shortness of breath and productive cough of white sputum. Further patient reports chills; rigors; malaise and anorexia. Also, patient fell on the day of presentation. Patient has a history of multiple falls. She has chronic tremors that family reports that it may Parkinson's disease. She hit her face and knees with her fall. Imaging of her head and knees were unremarkable for any acute process. She received morphine IV for pain in her bilateral knees; pain in her face and pain in her shoulders and neck. Also she reports a chronic pain for which she is on narcotics at home. Her chest x-ray showed retrocardiac atelectasis versus small infiltrate Reportedly patient was [facility] this year. She was recently treated with antibiotics because of blood in her urine. Family reported patient has been hallucinating and has been delusional. Family attributes this to Depakote use. Reportedly patient was admitted to the hospital with bradycardia that was attributed to lithium use. Her lithium was subsequently switched to Depakote. Patient has an upcoming appointment with a psychiatrist. 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) Chronic hyponatremia (Chronic) Current chronic use of systemic steroids (Chronic) Allergies celecoxib [From Celebrex] Adverse Reaction (Verified 10/29/18 16:36) Other CONFUSION Home Medications: Ambulatory Orders Medication Instructions Recorded Aspirin [Lo-Dose Aspirin EC] 81 mg PO LUNCH 02/23/16 Atorvastatin Calcium [Lipitor] 40 mg PO QHS 02/23/16 Benzonatate [Tessalon Perle] 200 mg PO TID PRN PRN 02/23/16 Fluphenazine HCl [Prolixin] 10 mg PO BID 02/23/16 Furosemide [Lasix] 60 mg PO DAILY 02/23/16 Lorazepam [Ativan] 1 mg PO BID PRN 02/23/16 Losartan Potassium [Cozaar] 100 mg PO DAILY 02/23/16 Multivitamin [Daily Multiple 1 each PO DAILY 02/23/16 Vitamin] Esomeprazole Mag Trihydrate 40 mg PO DAILY 12/18/16 [Nexium] Folic Acid 1 mg PO DAILY 02/24/18 Melatonin 10 mg PO QHS PRN 02/24/18 Cholecalciferol (VIT D3) [Vitamin 1,000 unit PO DAILY 04/21/18 D3] Cyanocobalamin [Vitamin B12] 3,000 mcg PO LUNCH 04/21/18 Metoprolol Succinate 150 mg PO DAILY 04/21/18 Acetaminophen [Tylenol] 500 - 1,000 mg PO Q6H PRN PRN 08/20/18 Carboxymethylcellulose Sodium 1 drp EACH EYE DAILY PRN 08/20/18 [Refresh Tears] Gabapentin [Neurontin] 400 mg PO TID 08/20/18 Magnesium Hydroxide [Milk Of 30 ml PO BID PRN 08/20/18 Magnesia] Spironolactone [Aldactone] 25 mg PO DAILY 08/20/18 Albuterol Aerosols [Ventolin 2.5 mg INHALATION Q2H PRN PRN 08/23/18 Aerosols] vial.neb. Divalproex Sodium [Depakote] 250 mg PO TIDCM #20 tab 08/23/18 DiphenhydrAMINE [Benadryl] 25 mg PO QHS PRN PRN 10/29/18 Fluticasone/Vilanterol [Breo 1 ea IH DAILY 10/29/18 Ellipta Inhaler] Methimazole 10 mg PO Q8H 10/29/18 Nystatin Powder [Mycostatin Powder] 1 applic TOPICAL BID PRN 10/29/18 Oxycodone HCl/Acetaminophen 1 ea PO BID PRN 10/29/18 [Percocet 5-325 mg Tablet] Polyethylene Glycol 3350 [Miralax] 17 gm PO BID PRN 10/29/18 Primidone 50 mg PO DAILY 10/29/18 Sennosides/Docusate Sodium 1 ea PO BID 10/29/18 [Senna-Docusate Sodium Tablet] Surgical History: total knee arthroplasty - Bilateral, - - Right shoulder surgeries, bilateral tubal ligation, right total hip replacement, bilateral total knee replacement, tonsillectomy. Psychiatric History: Anxiety, Bipolar, Depression PATIENT SERVICE ASSOCIATE History: No pertinent PATIENT SERVICE ASSOCIATE history Lives: With Family Smoking Status: Current every day smoker Tobacco Use: Cigarettes - *Family History Offspring History Items: Pulmonary Disease - sarcoidosis, - - Adrenal insufficiency Maternal History Items: Heart Disease Paternal History Items: - - Patient notes a paternal family history of arthritis, no specific history of heart disease, diabetes or cancer noted. Review of Systems Constitutional: Reports: Anorexia, Chills, Fever, Malaise. Denies: Weight Change HEENT: Denies: Head Aches, Sinus Congestion, Sinus Drainage Cardiovascular: Denies: Chest Pain, Palpitations Respiratory: Reports: Cough, Shortness of Breath, Sputum production Gastrointestinal: Denies: Abdominal Pain, Nausea, Vomiting Genitourinary: Denies: Dysuria Musculoskeletal: Reports: Joint Pain - Knee pain, Neck Pain, Shoulder Pain. Denies: Joint Tenderness Skin: Denies: Rash, Wounds Neurological: Denies: Numbness, Tingling, Focal weakness Psychiatric: Reports: - - Bipolar. Denies: Homicidal Ideations, Suicidal Ideations Hematologic/ Lymphatic: Denies: Easy Bruising, Easy Bleeding VTE Information - Inpt Only VTE Present on Admission: No VTE Mechan Device Prophylaxis: None VTE Pharm Prophylaxis ordered?: Yes Patient Problems: Active and Suspected Problems Sepsis (Acute) Pneumonia (Acute) Fall (Acute) - Physical Exam General: Alert, Oriented x3, Cooperative HEENT: Atraumatic, PERRLA, EOMI, Normocephalic Neck: Supple, No JVD, Negative Carotid Bruits Lungs: Clear to auscultation, Normal air movement, Tachypneic Cardiovascular: No murmurs, Tachycardic Abdomen: Bowel Sounds Present, Soft, Non Tender Extremities: No edema, Capillary Refill Less than 3 Seconds Skin: No rashes, No breakdown Musculoskeletal: No Tenderness to Palpation of Joints or Extremities Neurological: Cranial nerves II-XII grossly intact, - - Tremors Psych/Mental Status: Flat Affect Vital Signs Temp Pulse Resp BP Pulse Ox 97.3 F L 139 H 16 143/68 H 97 10/29/18 16:33 10/29/18 18:52 10/29/18 18:52 10/29/18 18:52 10/29/18 18:52 Oxygen Flow Rate (L/min) 2 Oxygen Delivery Method Nasal Cannula Weight: 88.451 kg Body Mass Index (BMI) 34.5 Finger Stick Blood Glucose 100 Intake and Output for Last 24 Hours 10/27/18 10/28/18 10/29/18 23:59 23:59 23:59 Intake Total 500 / 500 Balance 500 / 500 Laboratory Tests Past 24 Hrs 10/29/18 10/29/18 10/29/18 17:25 17:25 17:25 WBC 9.5 RBC 3.98 L Hgb 11.6 L Hct 36.0 L MCV 90.5 MCH 29.1 MCHC 32.2 RDW Std Deviation 46.1 H RDW Coeff of Jorge 13.8 Plt Count 289 MPV 9.9 Immature Gran % (Auto) 0.400 Neut % (Auto) 68.0 Lymph % (Auto) 21.3 [place] % (Auto) 7.6 Eos % (Auto) 2.1 Baso % (Auto) 0.6 Absolute Neuts (auto) 6.4 Absolute Lymphs (auto) 2.02 Nucleated RBC % 0 Sodium 138 Potassium 3.9 Chloride 104 Carbon Dioxide 29.0 Anion Gap 5 BUN 9 Creatinine 0.82 Estim Creat Clear Calc 51.30 Est GFR (MDRD) Af Amer 88 Est GFR (MDRD) Non-Af 73 BUN/Creatinine Ratio 11.0 Glucose 102 Calcium 9.8 Total Bilirubin 0.30 AST 11 L ALT 13 Alkaline Phosphatase 109 Troponin I < 0.015 Total Protein 6.6 Albumin 2.9 L Globulin 3.7 Albumin/Globulin Ratio 0.8 L Urine Color Urine Clarity Urine pH Ur Specific [place] Urine Protein Urine Glucose (UA) Urine Ketones Urine Occult Blood Urine Nitrite Urine Bilirubin Urine Urobilinogen Ur Leukocyte Esterase Urine RBC Urine WBC Ur Squamous Epith Cells Urine Bacteria Urine Mucus Valproic Acid 24 L 10/29/18 17:38 WBC RBC Hgb Hct MCV MCH MCHC RDW Std Deviation RDW Coeff of Jorge Plt Count MPV Immature Gran % (Auto) Neut % (Auto) Lymph % (Auto) [place] % (Auto) Eos % (Auto) Baso % (Auto) Absolute Neuts (auto) Absolute Lymphs (auto) Nucleated RBC % Sodium Potassium Chloride Carbon Dioxide Anion Gap BUN Creatinine Estim Creat Clear Calc Est GFR (MDRD) Af Amer Est GFR (MDRD) Non-Af BUN/Creatinine Ratio Glucose Calcium Total Bilirubin AST ALT Alkaline Phosphatase Troponin I Total Protein Albumin Globulin Albumin/Globulin Ratio Urine Color Yellow Urine Clarity Clear Urine pH 7.0 Ur Specific [place] 1.005 Urine Protein Negative Urine Glucose (UA) Normal Urine Ketones Negative Urine Occult Blood 10 H Urine Nitrite Negative Urine Bilirubin Negative Urine Urobilinogen Normal Ur Leukocyte Esterase 25 H Urine RBC 0 SEEN Urine WBC 0-5 SEEN Ur Squamous Epith Cells 0 SEEN Urine Bacteria 0 SEEN Urine Mucus 0 SEEN Valproic Acid Assessment/Plan All Active Problems Stroke (Acute) Sepsis (Acute) Pneumonia (Acute) Fall (Acute) CAP (community acquired pneumonia) (Ruled-out) The patient is a 73 year old F with a significant history of bipolar disorder; congestive heart failure; hypertension; and tobacco abuse who presented to the emergency department with a fever of 100 at home; shortness of breath and productive cough of white sputum; chills; rigors; malaise and anorexia; and multiple falls; and with tachypnea and tachycardia as well as radiographic evidence of retrocardiac atelectasis versus small infiltrate for which patient will be admitted for sepsis second community acquired pneumonia Sepsis secondary to community acquired pneumonia Patient does not look sick. However she meets sepsis criteria with tachycardia; and tachypnea and radiographic evidence of atelectasis versus small infiltrates. However she complain of chills and increased tremors (rigors) above her baseline tremors. She reported a fever of 100 at home. Patient has no fever here. Patient is tachycardic and has respiratory rate in the 20s. Blood cultures were ordered emergency department. We will get sputum cultures Chest x-ray impression by radiologist: Retrocardiac atelectasis and/or small infiltrate Respiratory Gram stain and culture pending Antibiotics: Patient was started on ceftriaxone and azithromycin in the emergency department. Continue ceftriaxone and azithromycin. IV hydration: Received normal saline 500 mils bolus in the emergency department Albuterol as needed continued. On home inhaled corticosteroids?LABA; continued Legionella antigen screen and Strep antigen ordered Incentives parameter and chest physiotherapy ordered. Continue Tessalon Perle continued. Multiple falls Likely secondary to her chronic tremors. We will check vitamin D level Vitamin D continued PT and OT to work with the patient for strengthening and balance training. Bipolar disorder Her valproic level is low. Will continue same dose Depakote. Fluphenazine continued Ativan continued Patient to follows up with psychiatrist outpatient for medication adjustment. Congestive heart failure Lasix continued Hypothyroidism Methimazole continued Hypertension On presentation her blood pressure was not within goal Metoprolol continued Aldactone continued Cozaar continued Trend blood pressure and adjust blood pressure medications Hyperlipidemia Lipitor continued DVT prophylaxis Subcutaneous Lovenox. Code Visit Inpatient E&M: [id number] Init Hosp L3
[2018-10-29] MEDS: Morphine 4 MG/ML Syringe IV (19:51)
[2018-10-29 20:01] VITALS: PULSE 104; RESP 20; O2SAT 100; BMI 34.5
--- NOTE | 2018-10-29 20:02 | EKG12_ITS ---
Test Reason : REPEAT Blood Pressure : / mmHG Vent. Rate : 068 BPM Atrial Rate : 068 BPM P-R Int : 168 ms QRS Dur : 086 ms QT Int : 398 ms P-R-T Axes : 076 032 039 degrees QTc Int : 423 ms Normal sinus rhythm Septal infarct , age undetermined Abnormal ECG Confirmed by SHAKILA HOOPER ([id number]), web editor LUCINA SYED ([id number]) on 10/30/2018 1:37:30 PM Referred By: Georges Andrade Confirmed By:SHAKILA HOOPER
[2018-10-29] MEDS: Ceftriaxone 1 GM/50 ML BAG IV (20:24)
[2018-10-29 20:56] VITALS: BMI 34.5
[2018-10-29 21:08] LABS: Lactic Acid 0.8 mmol/L (0.4-2.0)
[2018-10-29 21:12] VITALS: BP 142/63; PULSE 71; RESP 18; TEMP 37.1; O2SAT 100
[2018-10-29 21:36] LABS: Vitamin D,25 Hydroxy 25.8 ng/mL (29.95-100.01)
[2018-10-29] MEDS: Atorvastatin Calcium 40 MG Tablet PO (21:42)
[2018-10-29] MEDS: Gabapentin 400 MG Capsule PO (21:42)
[2018-10-29] MEDS: guaiFENesin 1,200 MG Tablet 1200 MG PO (21:42)
[2018-10-29] MEDS: oxyCODONE 5 MG Tablet PO (21:55)
[2018-10-29] MEDS: DiphenhydrAMINE 25 MG Capsule PO (21:55)
--- NOTE | 2018-10-29 21:55 | NURSING ---
Lisette Magallon, pt's daughter, was called regarding the following pt's meds: Methimazole and Prolixin. The daughter states that they get the meds from [facility] in bubble packs and that they are packaged with other meds. I advised her that we would request the meds from an outside source then since we cannot verify meds in packs.
[2018-10-29] MEDS: MELATONIN 10 MG TABLET PO (21:56)
[2018-10-29] MEDS: Acetaminophen 325 MG Tablet 650 MG PO (23:30)
[2018-10-29] MEDS: LORazepam 1 MG Tablet PO (23:30)
[2018-10-29 23:53] VITALS: PULSE 72; RESP 18
[2018-10-29] MEDS: Albuterol 2.5 MG/3 ML VIAL.NEB. INHALATION (23:53)
[2018-10-29] MEDS: Budesonide Respules 0.5 MG/2 ML AMPUL.NEB. INHALATION (23:53)
[2018-10-30 04:30] VITALS: BP 139/63; PULSE 66; RESP 18; TEMP 37.3; O2SAT 98
[2018-10-30] MEDS: Acetaminophen 325 MG Tablet 650 MG PO ×2 (05:47→18:16)
[2018-10-30] MEDS: METHIMAZOLE 5 MG TABLET 10 MG PO ×3 (05:48→21:34)
[2018-10-30] MEDS: Gabapentin 400 MG Capsule PO ×3 (05:48→21:35)
[2018-10-30 06:56] LABS: Absolute Lymphocyte Count 2.17 X10^3/uL (0.83-4.51); Absolute Neutrophil Count 5.3 X10^3/uL (2.0-7.7); Basophil# 0.07 X10^3/uL; Basophil% 0.8 % (0-1); Eosinophil# 0.32 X10^3/uL; Eosinophils% 3.7 % (0-5); Hematocrit 32.8 % (37-47); Hemoglobin 10.4 g/dL (12.0-15.0); Lymphocyte # 2.17 X10^3/ul (4.0); Lymphocyte % 24.8 % (19-41); Mean Corp Hgb Conc 31.7 g/dL (32-36); Mean Corpuscular Hgb 29.1 pg (27.0-32.0); Mean Corpuscular Volume 91.6 fL (81-99); Monocyte# 0.85 X10^3/uL; Monocyte% 9.7 % (0-10); NRBC Flagged by Analyzer 0 % (0-5); Neutrophil % 60.5 % (47-70); Platelet Count 239 K/mm3 (150-450); RBC Distribution Width CV 13.9 % (11.6-14.6); RBC Distribution Width SD 46.6 fl (35.1-43.9); Red Blood Count 3.58 M/mm3 (4.2-5.4); White Blood Count 8.8 K/mm3 (4.4-11.0)
--- NOTE | 2018-10-30 08:23 | PCM.PN.HOSP ---
Patient Problems: Active and Suspected Problems Sepsis (Acute) Pneumonia (Acute) Fall (Acute) Subjective: Patient was seen and examined. She feels well. She wears 2L oxygen at night. Denies any chest pain, dizziness, fever, chills. Objective: Physical Exam General: Alert, Oriented x3, Cooperative HEENT: Atraumatic, PERRLA, EOMI, Normocephalic Neck: Supple, No JVD, Negative Carotid Bruits Lungs: Clear to auscultation, Normal air movement, Tachypneic Cardiovascular: No murmurs, Tachycardic Abdomen: Bowel Sounds Present, Soft, Non Tender Extremities: No edema, Capillary Refill Less than 3 Seconds Skin: No rashes, No breakdown Musculoskeletal: No Tenderness to Palpation of Joints or Extremities Neurological: Cranial nerves II-XII grossly intact, - - Tremors Psych/Mental Status: Flat Affect Vitals/I&O's: Vital Signs Temp Pulse Resp BP Pulse Ox 99.2 F H 66 18 139/63 H 98 10/30/18 04:30 10/30/18 04:30 10/30/18 04:30 10/30/18 04:30 10/30/18 04:30 Oxygen Flow Rate (L/min) 2 Oxygen Delivery Method Nasal Cannula Weight: 88.5 kg Body Mass Index (BMI) 34.5 Finger Stick Blood Glucose 100 Intake and Output for Last 24 Hours 10/28/18 10/29/18 10/30/18 23:59 23:59 23:59 Intake Total 805 / 1205 900 / 900 Output Total 700 / 700 Balance 805 / 1205 200 / 200 Microbiology Past 72 Hours 10/29/18 17:30 Urine, Clean Catch Legionella Antigen - Final 10/29/18 17:30 Urine, Clean Catch Streptococcus pneumoniae Antigen (M - Final Laboratory Results 10/29/18 17:25: WBC 9.5, RBC 3.98 L, Hgb 11.6 L, Hct 36.0 L, MCV 90.5, MCH 29.1, MCHC 32.2, RDW Std Deviation 46.1 H, RDW Coeff of Jorge 13.8, Plt Count 289, MPV 9.9, Immature Gran % (Auto) 0.400, Neut % (Auto) 68.0, Lymph % (Auto) 21.3, [place] % (Auto) 7.6, Eos % (Auto) 2.1, Baso % (Auto) 0.6, Absolute Neuts (auto) 6.4, Absolute Lymphs (auto) 2.02, Nucleated RBC % 0 10/29/18 17:25: Sodium 138, Potassium 3.9, Chloride 104, Carbon Dioxide 29.0, Anion Gap 5, BUN 9, Creatinine 0.82, Estim Creat Clear Calc 51.30, Est GFR (MDRD) Af Amer 88, Est GFR (MDRD) Non-Af 73, BUN/Creatinine Ratio 11.0, Glucose 102, Calcium 9.8, Total Bilirubin 0.30, AST 11 L, ALT 13, Alkaline Phosphatase 109, Troponin I < 0.015, Total Protein 6.6, Albumin 2.9 L, Globulin 3.7, Albumin/Globulin Ratio 0.8 L 10/29/18 17:25: Valproic Acid 24 L 10/29/18 17:25: Vitamin D 25-Hydroxy 25.8 L 10/29/18 17:38: Urine Color Yellow, Urine Clarity Clear, Urine pH 7.0, Ur Specific [place] 1.005, Urine Protein Negative, Urine Glucose (UA) Normal, Urine Ketones Negative, Urine Occult Blood 10 H, Urine Nitrite Negative, Urine Bilirubin Negative, Urine Urobilinogen Normal, Ur Leukocyte Esterase 25 H, Urine RBC 0 SEEN, Urine WBC 0-5 SEEN, Ur Squamous Epith Cells 0 SEEN, Urine Bacteria 0 SEEN, Urine Mucus 0 SEEN 10/29/18 20:20: Lactic Acid 0.8 10/30/18 06:20: WBC 8.8, RBC 3.58 L, Hgb 10.4 L, Hct 32.8 L, MCV 91.6, MCH 29.1, MCHC 31.7 L, RDW Std Deviation 46.6 H, RDW Coeff of Jorge 13.9, Plt Count 239, MPV 10.0, Immature Gran % (Auto) 0.500, Neut % (Auto) 60.5, Lymph % (Auto) 24.8, [place] % (Auto) 9.7, Eos % (Auto) 3.7, Baso % (Auto) 0.8, Absolute Neuts (auto) 5.3, Absolute Lymphs (auto) 2.17, Nucleated RBC % 0 Current Medications Acetaminophen (Tylenol) 650 mg PO Q6H PRN PRN PRN Reason: Mild Pain (1-3)/Temp > 100.7 F Last Admin: 10/30/18 05:47 Dose: 650 mg Documented by: Albuterol Sulfate (Ventolin Aerosols) 2.5 mg INHALATION Q2H PRN PRN PRN Reason: SHORTNESS OF BREATH Albuterol Sulfate (Ventolin Aerosols) 2.5 mg INHALATION Q6HWA.RT [facility] Last Admin: 10/30/18 06:40 Dose: Not Given Documented by: Artificial Tears (Tears Naturale, Artificial Tears) 1 drop EACH EYE DAILY PRN PRN PRN Reason: DRY EYES Aspirin (Ecotrin) 81 mg PO LUNCH MAURILIO Atorvastatin Calcium (Lipitor) 40 mg PO QHS [facility] Last Admin: 10/29/18 21:42 Dose: 40 mg Documented by: Benzonatate (Tessalon Perle) 200 mg PO TID PRN PRN PRN Reason: COUGH Bisacodyl (Dulcolax) 5 mg PO DAILY PRN PRN PRN Reason: Constipation Budesonide (Pulmicort Aerosol) 0.5 mg INHALATION Q12H.RT [facility] Last Admin: 10/30/18 06:41 Dose: Not Given Documented by: Cholecalciferol (Vitamin D) 1,000 unit PO DAILY [facility] Cyanocobalamin (Vitamin B12) 3,000 mcg PO LUNCH MAURILIO Dextrose (D50w Syringe) 0 gm IV X1 PRN; Protocol PRN Reason: Hypoglycemia Diphenhydramine HCl (Benadryl) 25 mg PO QHS PRN PRN PRN Reason: SLEEP Last Admin: 10/29/18 21:55 Dose: 25 mg Documented by: Divalproex Sodium (Depakote) 250 mg PO TIDCM MAURILIO Enoxaparin Sodium (Lovenox) 40 mg SC DAILY@1000 MAURILIO Fluphenazine HCl (Prolixin) 10 mg PO BID MAURILIO Folic Acid (Folic Acid) 1 mg PO DAILYCM [facility] Furosemide (Lasix) 60 mg PO DAILY MAURILIO Gabapentin (Neurontin) 400 mg PO TID [facility] Last Admin: 10/30/18 05:48 Dose: 400 mg Documented by: Glucagon () 1 mg IM .X1 PRN PRN Reason: Hypoglycemia Guaifenesin (Mucinex) 1,200 mg PO BID [facility] Last Admin: 10/29/18 21:42 Dose: 1,200 mg Documented by: Azithromycin 500 mg/ Dextrose 255 mls @ 250 mls/hr IV Q24H [facility] Ceftriaxone Sodium (Rocephin) 1 gm in 50 mls @ 100 mls/hr IV Q24H [facility] Sodium Chloride () 250 mls @ 15 mls/hr IV .[id number] PRN PRN Reason: SALINE FLUSH Lorazepam (Ativan) 1 mg PO BID PRN PRN Reason: ANXIETY Last Admin: 10/29/18 23:30 Dose: 1 mg Documented by: Losartan Potassium (Cozaar) 100 mg PO DAILY [facility] Magnesium Hydroxide (Milk Of Magnesia) 30 ml PO BID PRN PRN Reason: Constipation Melatonin (Melatonin) 10 mg PO QHS PRN PRN Reason: sleeping Last Admin: 10/29/18 21:56 Dose: 10 mg Documented by: Methimazole (Tapazole) 10 mg PO Q8H [facility] Last Admin: 10/30/18 05:48 Dose: 10 mg Documented by: Metoprolol Succinate (Toprol Xl (Beta Darrell)) 150 mg PO DAILY [facility] Multivitamins (Multivitamin) 1 tablet PO DAILY@0800 [facility] Nicotine (Nicoderm Cq (Pbkc)) 21 mg TRANSDERM. DAILY [facility] Nystatin (Mycostatin Powder) 1 applic TOPICAL BID PRN; Protocol PRN Reason: antifungal Oxycodone HCl (Oxyir) 5 mg PO BID PRN PRN Reason: PAIN Last Admin: 10/29/18 21:55 Dose: 5 mg Documented by: Pantoprazole Sodium (Protonix) 40 mg PO DAILY [facility] Polyethylene Glycol (Miralax) 17 gm PO BID PRN PRN Reason: Constipation Primidone (Mysoline) 50 mg PO DAILY [facility] Senna/Docusate Sodium (Senokot-S, Rocio-Colace) 1 tablet PO BID [facility] Last Admin: 10/29/18 21:42 Dose: Not Given Documented by: Sodium Chloride () 10 - 40 ml IV UD PRN PRN Reason: SALINE FLUSH Spironolactone (Aldactone) 25 mg PO DAILY [facility] Medical Necessity - Tobacco Use Smoking Status: Current every day smoker Tobacco Use: Cigarettes Assessment/Plan All Active Problems Stroke (Acute) Sepsis (Acute) Pneumonia (Acute) Fall (Acute) CAP (community acquired pneumonia) (Ruled-out) 73-year-old female past medical history of bipolar disorder, CHF, hypertension who comes in with fever, shortness of breath and productive cough. 1. Sepsis secondary to CAP, improving, on IV ceftriaxone and azithromycin 2. Recurrent falls, likely secondary to polypharmacy and patient's chronic tremors Vitamin D is low, on replacement, PT/OT to evaluate and treat. 3. Hypertension, GERD, continue on losartan, metoprolol 4. Bipolar disorder, on valproic acid, fluphenazine 5. Nicotine dependence, on replacement 6. Tremors, ?essential, on primidone 7. DVT prophylaxis with Lovenox subcu Code Visit Inpatient E&M: 10406 Subs Hosp L2
[2018-10-30] MEDS: Multivitamins,Therapeutic Tablet 1 TABLET PO (09:03)
[2018-10-30] MEDS: Folic Acid 1 MG Tablet PO (09:03)
[2018-10-30] MEDS: Divalproex Sodium 250 MG Tablet PO ×3 (09:03→18:15)
[2018-10-30] MEDS: Losartan Potassium 100 MG Tablet PO (09:04)
[2018-10-30] MEDS: Furosemide 20 MG Tablet 60 MG PO (09:04)
[2018-10-30] MEDS: Spironolactone 25 MG Tablet PO (09:04)
[2018-10-30] MEDS: Primidone 50 MG Tablet PO (09:05)
[2018-10-30] MEDS: Enoxaparin 40 MG/0.4 ML Syringe SC (09:05)
[2018-10-30] MEDS: guaiFENesin 1,200 MG Tablet 1200 MG PO ×2 (09:05→21:35)
[2018-10-30] MEDS: Pantoprazole Sodium 40 MG Tablet PO (09:06)
[2018-10-30 09:07] VITALS: BP 132/71; PULSE 77
[2018-10-30] MEDS: Metoprolol(XL)Succ 100 MG Tablet 150 MG PO (09:07)
[2018-10-30] MEDS: Senna/Docusate Sodium 1 Tablet PO ×2 (09:07→21:36)
[2018-10-30 09:16] VITALS: BP 132/71; PULSE 77; RESP 18; TEMP 36.6; O2SAT 97
[2018-10-30 09:17] VITALS: RESP 16; O2SAT 97
[2018-10-30] MEDS: LORazepam 1 MG Tablet PO ×2 (12:43→19:43)
[2018-10-30] MEDS: oxyCODONE 5 MG Tablet PO ×2 (12:44→21:33)
[2018-10-30] MEDS: Cyanocobalamin 500 MCG Tablet 3000 MCG PO (12:46)
[2018-10-30] MEDS: Aspirin E.C. 81 MG Tablet PO (12:46)
[2018-10-30] MEDS: Benzonatate 100 MG Capsule 200 MG PO (12:51)
--- NOTE | 2018-10-30 12:51 | CHAPLAIN ---
Type of Pastoral Visit _x__ Initial Visit ___ Follow-up Visit ___ On-call Visit ___ General Patient Visit ___ Spiritual Assessment ___ Family Conference ___ Bereavement ___ Rapid Response ___ Code Blue ___ Other (describe below) Pastoral Care Referral From _x__ Patient ___ Family ___ Nurse ___ Physician ___ Advisory Software Engineer ___ Asset Accountant ___ Other (describe below) Sacrament/Intervention _x__ Active listening ___ Anointing ___ Sabianist ___ Bereavement ___ Communion _x__ Linda exploration ___ _x__ Life review _x__ Prayer ___ Reconciliation ___ Sacrament of Sick _x__ Supportive presence ___ Wedding ___ Other (describe below) Pastoral Comments
--- NOTE | 2018-10-30 16:44 | CASEMGMT ---
RAHUL LEE Face to Face with patient for initial transition planning/care coordination assessment. RAHUL LEE introduced self and role at [facility]. Patient lying in bed, alert and oriented. Patient willing to participate in assessment and is able to answer all questions appropriately. Care providers, pharmacy, and demographics verified. Patient wishes to discharge home with resumption of HHC. Patient cannot remember HHC company and gave permission to this CM to all daughter. Patient states she has no further needs or concerns at this time. CM to follow for discharge planning needs that may arise. PCP: Timothy Specialists: psychologist Yash Preferred Pharmacy: [facility] Insurance: [employer] [facility] Prescription Benefit: yes Living Will/HPOA: yes, daughter Lisette Magallon LNOK: daughter Living Arrangements: Patient lives with daughter in 1 story home with ramp to enter the home. Daughter assists with ADLs Transportation: daughter DME/HHC: Patient has shower, raised toilet, lift chair, walker, wheelchair, oxygen, and nebulizer RN CM attempted to all daughter to inquire about oxygen company and HHC company, no answer voice message left with return contact information. Disposition Plan: Patient to discharge home with HHC, family support, and follow-up plans in place. Lynda HERNANDEZ, RN, CM
--- NOTE | 2018-10-30 16:52 | CASEMGMT ---
Daughter returned call and updated CM with information regarding HHC and DME company. HHC is setup with [facility] [phone]. Oxygen is through [employer]. CM to continue to follow this patient and plan for a safe discharge.
[2018-10-30 19:06] VITALS: PULSE 79; RESP 18; O2SAT 97
[2018-10-30] MEDS: Albuterol 2.5 MG/3 ML VIAL.NEB. INHALATION (19:06)
[2018-10-30] MEDS: Budesonide Respules 0.5 MG/2 ML AMPUL.NEB. INHALATION (19:06)
[2018-10-30 19:37] VITALS: BP 144/54; PULSE 77; RESP 18; TEMP 36.9; O2SAT 97
[2018-10-30] MEDS: Polyethylene Glycol 3350 17 GM PACKET PO (19:57)
[2018-10-30] MEDS: 0.9% NaCl IVPB Med Flush (250 mL) 15 ML IV (21:32)
[2018-10-30] MEDS: MELATONIN 10 MG TABLET PO (21:33)
[2018-10-30] MEDS: DiphenhydrAMINE 25 MG Capsule PO (21:33)
[2018-10-30] MEDS: Atorvastatin Calcium 40 MG Tablet PO (21:37)
[2018-10-30] MEDS: 0.9% NaCl Peripheral Flush Adult/Peds IV ×2 (21:47→22:58)
[2018-10-30] MEDS: Ceftriaxone 1 GM/50 ML BAG IV (21:57)
[2018-10-31] VITALS (7 sets, daily range): BP systolic 105–134; BP diastolic 56–74; PULSE 60–77; RESP 16–18; TEMP 36.5–37.1; O2SAT 95–99
[2018-10-31] MEDS: Gabapentin 400 MG Capsule PO ×2 (05:13→14:32)
[2018-10-31] MEDS: METHIMAZOLE 5 MG TABLET 10 MG PO ×2 (05:13→12:03)
[2018-10-31] MEDS: Albuterol 2.5 MG/3 ML VIAL.NEB. INHALATION ×2 (06:40→13:25)
[2018-10-31] MEDS: Budesonide Respules 0.5 MG/2 ML AMPUL.NEB. INHALATION (06:40)
[2018-10-31] MEDS: guaiFENesin 1,200 MG Tablet 1200 MG PO (08:04)
[2018-10-31] MEDS: Acetaminophen 325 MG Tablet 650 MG PO ×2 (08:05→14:32)
[2018-10-31] MEDS: Polyethylene Glycol 3350 17 GM PACKET PO (08:05)
[2018-10-31] MEDS: Spironolactone 25 MG Tablet PO (08:06)
[2018-10-31] MEDS: Folic Acid 1 MG Tablet PO (08:06)
[2018-10-31] MEDS: Multivitamins,Therapeutic Tablet 1 TABLET PO (08:06)
[2018-10-31] MEDS: Senna/Docusate Sodium 1 Tablet PO (08:06)
[2018-10-31] MEDS: Aspirin E.C. 81 MG Tablet PO (08:06)
[2018-10-31] MEDS: Pantoprazole Sodium 40 MG Tablet PO (08:07)
[2018-10-31] MEDS: Furosemide 20 MG Tablet 60 MG PO (08:07)
[2018-10-31] MEDS: Metoprolol(XL)Succ 100 MG Tablet 150 MG PO (08:07)
[2018-10-31] MEDS: oxyCODONE 5 MG Tablet PO (08:08)
[2018-10-31] MEDS: Divalproex Sodium 250 MG Tablet PO ×2 (08:09→12:02)
[2018-10-31] MEDS: Losartan Potassium 100 MG Tablet PO (08:10)
[2018-10-31] MEDS: Primidone 50 MG Tablet PO (08:11)
[2018-10-31] MEDS: Enoxaparin 40 MG/0.4 ML Syringe SC (08:12)
--- NOTE | 2018-10-31 08:55 | NURSING ---
permission obtained from patient verbally to give information of admission date/time/diagnosis to her home health care agency whom is on the phone.
--- NOTE | 2018-10-31 10:46 | DCINST_ITS ---
- Discharge Diagnoses Current Active Problems: Current Active and Chronic Problems Sepsis (Acute) Pneumonia (Acute) Fall (Acute) Reason(s) for Visit for Discharge Instructions: Shortness of breath You will use the following diet at home:: Cardiac Your food should be the consistency of: Regular Your liquids should be the consistency of: Regular/Thin Discharge Activity: Return to Normal Activity Call your doctor if you observe: Fever of 101 or Higher, Shortness of breath Additional Instructions: Complete your antibiotics. Continue to use your incentive spirometer. Continue to use your oxygen at night. You will be followed by Home health team for nursing, physical and occupational therapy. Allergies/Adverse Reactions: Allergies celecoxib [From Celebrex] Adverse Reaction (Verified 10/29/18 16:36) Other CONFUSION Medications to take at Discharge Aspirin [Lo-Dose Aspirin EC] 81 mg PO LUNCH 02/23/16 Atorvastatin Calcium [Lipitor] 40 mg PO QHS 02/23/16 Benzonatate [Tessalon Perle] 200 mg PO TID PRN PRN 02/23/16 Fluphenazine HCl [Prolixin] 10 mg PO BID 02/23/16 Furosemide [Lasix] 60 mg PO DAILY 02/23/16 Lorazepam [Ativan] 1 mg PO BID PRN 02/23/16 Losartan Potassium [Cozaar] 100 mg PO DAILY 02/23/16 Multivitamin [Daily Multiple Vitamin] 1 each PO DAILY 02/23/16 Esomeprazole Mag Trihydrate [Nexium] 40 mg PO DAILY 12/18/16 Folic Acid 1 mg PO DAILY 02/24/18 Melatonin 10 mg PO QHS PRN 02/24/18 Cyanocobalamin [Vitamin B12] 3,000 mcg PO LUNCH 04/21/18 Metoprolol Succinate 150 mg PO DAILY 04/21/18 Acetaminophen [Tylenol] 500 - 1,000 mg PO Q6H PRN PRN 08/20/18 Carboxymethylcellulose Sodium [Refresh Tears] 1 drp EACH EYE DAILY PRN 08/20/18 Gabapentin [Neurontin] 400 mg PO TID 08/20/18 Magnesium Hydroxide [Milk Of Magnesia] 30 ml PO BID PRN 08/20/18 Spironolactone [Aldactone] 25 mg PO DAILY 08/20/18 Albuterol Aerosols [Ventolin Aerosols] 2.5 mg INHALATION Q2H PRN PRN vial.neb. 08/23/18 Divalproex Sodium [Depakote] 250 mg PO TIDCM #20 tab 08/23/18 DiphenhydrAMINE [Benadryl] 25 mg PO QHS PRN PRN 10/29/18 Fluticasone/Vilanterol [Breo Ellipta 100-25 Mcg INH] 1 ea IH DAILY 10/29/18 Methimazole 10 mg PO Q8H 10/29/18 Nystatin Powder [Mycostatin Powder] 1 applic TOPICAL BID PRN 10/29/18 Oxycodone HCl/Acetaminophen [Percocet 5-325 mg Tablet] 1 ea PO BID PRN 10/29/18 Polyethylene Glycol 3350 [Miralax] 17 gm PO BID PRN 10/29/18 Primidone 50 mg PO DAILY 10/29/18 Sennosides/Docusate Sodium [Senna-Docusate Sodium Tablet] 1 ea PO BID 10/29/18 Amoxicillin/Potassium Clav [Augmentin 875-125 Tablet] 1 ea PO BID 5 Days #10 tab 10/31/18 Cholecalciferol (VIT D3) [Vitamin D3] 2,000 unit PO DAILY 30 Days #30 tab 10/31/18 Nicotine [Nicoderm Cq] 21 mg TRANSDERM. DAILY 30 Days #30 patch 10/31/18 The following prescriptions were given: Nicotine [Nicoderm Cq] 21 mg TRANSDERM. DAILY 30 Days #30 patch Transmission Status: Pending to [facility] Cholecalciferol (VIT D3) [Vitamin D3] 2,000 unit PO DAILY 30 Days #30 tab Transmission Status: Pending to [facility] Primary Care Physician: Steve Aguirre [Primary Care Provider] - Please follow up with your Primary Care Physician in: within 1-2 weeks Test Results: Test results from this visit will be discussed in further detail at your follow- up appointment, if applicable. Proposed Discharge Date: 10/31/18
[2018-10-31] MEDS: LORazepam 1 MG Tablet PO (10:47)
[2018-10-31] MEDS: Cyanocobalamin 500 MCG Tablet 3000 MCG PO (10:48)
--- NOTE | 2018-10-31 10:49 | PCM.DC.SUM ---
Discharge Date and Diagnosis Date of Admission: 10/29/18 Date of Discharge: 10/31/18 - Primary Discharge Diagnosis Active and Suspected Problems Sepsis (Acute) Pneumonia (Acute) Fall (Acute) - Secondary Discharge Diagnosis Chronic Problems Tobacco use (Chronic) COPD (chronic obstructive pulmonary disease) (Chronic) Chronic respiratory failure with hypoxia (Chronic) CAD (coronary artery disease) (Chronic) Hyperlipidemia (Chronic) Anxiety (Chronic) Hypertension (Chronic) Chronic bronchitis (Chronic) Bipolar disorder (Chronic) Constipation due to opioid therapy (Chronic) Chronic hyponatremia (Chronic) Current chronic use of systemic steroids (Chronic) Hospital Course and Treatment Operations: None Summary of Care Provided: The patient is a 73 year old F [] Subjective: On the day of discharge, patient was seen and examined. Denied any new complaints. She is off oxygen. She feels improved. Denies fever or chills. Objective: Physical Exam General: Alert, Oriented x3, Cooperative HEENT: Atraumatic, PERRLA, EOMI, Normocephalic Neck: Supple, No JVD, Negative Carotid Bruits Lungs: Clear to auscultation, Normal air movement, Tachypneic Cardiovascular: No murmurs, Tachycardic Abdomen: Bowel Sounds Present, Soft, Non Tender Extremities: No edema, Capillary Refill Less than 3 Seconds Skin: No rashes, No breakdown Musculoskeletal: No Tenderness to Palpation of Joints or Extremities Neurological: Cranial nerves II-XII grossly intact, - - Tremors Psych/Mental Status: Flat Affect - Physical Exam Vital Signs Temp Pulse Resp BP Pulse Ox 97.9 F 77 18 134/56 H 98 10/31/18 08:03 10/31/18 08:07 10/31/18 08:03 10/31/18 08:03 10/31/18 08:03 Oxygen Flow Rate (L/min) 2 Oxygen Delivery Method Room Air Weight: 88.5 kg Body Mass Index (BMI) 34.5 Finger Stick Blood Glucose 100 Intake and Output for Last 24 Hours 10/29/18 10/30/18 10/31/18 23:59 23:59 23:59 Intake Total 805 / 1205 1207.50 / 1207.50 335.75 / 335.75 Output Total 700 / 700 650 / 650 Balance 805 / 1205 507.50 / 507.50 -314.25 / -314.25 Microbiology Past 72 Hours 10/29/18 17:30 Legionella Antigen - Final Urine, Clean Catch Streptococcus pneumoniae Antigen (M - Final Discharge Diet: Low fat/ Low Cholesterol, 2000 mg Sodium Diet Discharge Activity: Return to Normal Activity Call your doctor if you observe: Fever of 101 or Higher, Shortness of breath Home Medications: Medications to take at Discharge Aspirin [Lo-Dose Aspirin EC] 81 mg PO LUNCH 02/23/16 Atorvastatin Calcium [Lipitor] 40 mg PO QHS 02/23/16 Benzonatate [Tessalon Perle] 200 mg PO TID PRN PRN 02/23/16 Fluphenazine HCl [Prolixin] 10 mg PO BID 02/23/16 Furosemide [Lasix] 60 mg PO DAILY 02/23/16 Lorazepam [Ativan] 1 mg PO BID PRN 02/23/16 Losartan Potassium [Cozaar] 100 mg PO DAILY 02/23/16 Multivitamin [Daily Multiple Vitamin] 1 each PO DAILY 02/23/16 Esomeprazole Mag Trihydrate [Nexium] 40 mg PO DAILY 12/18/16 Folic Acid 1 mg PO DAILY 02/24/18 Melatonin 10 mg PO QHS PRN 02/24/18 Cyanocobalamin [Vitamin B12] 3,000 mcg PO LUNCH 04/21/18 Metoprolol Succinate 150 mg PO DAILY 04/21/18 Acetaminophen [Tylenol] 500 - 1,000 mg PO Q6H PRN PRN 08/20/18 Carboxymethylcellulose Sodium [Refresh Tears] 1 drp EACH EYE DAILY PRN 08/20/18 Gabapentin [Neurontin] 400 mg PO TID 08/20/18 Magnesium Hydroxide [Milk Of Magnesia] 30 ml PO BID PRN 08/20/18 Spironolactone [Aldactone] 25 mg PO DAILY 08/20/18 Albuterol Aerosols [Ventolin Aerosols] 2.5 mg INHALATION Q2H PRN PRN vial.neb. 08/23/18 Divalproex Sodium [Depakote] 250 mg PO TIDCM #20 tab 08/23/18 DiphenhydrAMINE [Benadryl] 25 mg PO QHS PRN PRN 10/29/18 Fluticasone/Vilanterol [Breo Ellipta 100-25 Mcg INH] 1 ea IH DAILY 10/29/18 Methimazole 10 mg PO Q8H 10/29/18 Nystatin Powder [Mycostatin Powder] 1 applic TOPICAL BID PRN 10/29/18 Oxycodone HCl/Acetaminophen [Percocet 5-325 mg Tablet] 1 ea PO BID PRN 10/29/18 Polyethylene Glycol 3350 [Miralax] 17 gm PO BID PRN 10/29/18 Primidone 50 mg PO DAILY 10/29/18 Sennosides/Docusate Sodium [Senna-Docusate Sodium Tablet] 1 ea PO BID 10/29/18 Amoxicillin/Potassium Clav [Augmentin 875-125 Tablet] 1 ea PO BID 5 Days #10 tab 10/31/18 Cholecalciferol (VIT D3) [Vitamin D3] 2,000 unit PO DAILY 30 Days #30 tab 10/31/18 Nicotine [Nicoderm Cq] 21 mg TRANSDERM. DAILY 30 Days #30 patch 10/31/18 Following Prescrptions Were Given to Patient: Amoxicillin/Potassium Clav [Augmentin 875-125 Tablet] 1 ea PO BID 5 Days #10 tab Transmission Status: Received by [facility] Nicotine [Nicoderm Cq] 21 mg TRANSDERM. DAILY 30 Days #30 patch Transmission Status: Received by [facility] Cholecalciferol (VIT D3) [Vitamin D3] 2,000 unit PO DAILY 30 Days #30 tab Transmission Status: Received by [facility] Primary Care Physician: Steve Aguirre [Primary Care Provider] - Please follow up with your Primary Care Physician in: within 1-2 weeks Disposition: Home with Home Health Minutes spent on discharge:: 40 Patient Condition:: Stable Medical Necessity - Tobacco Use Smoking Status: Current every day smoker Tobacco Use: Cigarettes Meaningful Use Info Meaningful Use Diagnoses (Choose all that apply): None applicable Code Visit Inpatient E&M: 41320 Disch Hosp
--- NOTE | 2018-10-31 14:15 | CASEMGMT ---
RAHUL LEE received update from patient's HHC of current services after leaving a message updated [facility] regarding patient's discharge. Resumption order placed for long-term and PT/OT. RAHUL LEE updated patient regarding resumption of HHC and voiced understanding.
--- NOTE | 2018-11-01 13:21 | CASEMGMT ---
RN JESUS RAMIREZ PHONE CALL DC DATE: 10/31/18 DC Disposition: Home with Home Health Diagnosis on Discharge: Bronchiolitis LACE/STRATA: 12/29 Intro role of CM to patient's daughter. Per daughter, no questions at this time, and Home Health nurse will be coming to home this afternoon. Maribel HERNANDEZ RN ACM
== END 2018-10-31 14:55 | disposition home health service (06) | DRG 194 ==
LOC: ED 17:39 → MS3 20:32
PROVIDERS: Admitting Provider Hospitalist; Emergency Provider Emergency Medicine; Family Provider Internal Medicine; PCP Internal Medicine; Referring Provider Hospitalist; Visit Provider Internal Medicine
DX: J18.9 Pneumonia, unspecified organism (principal); J96.11 Chronic respiratory failure with hypoxia; F31.9 Bipolar disorder, unspecified; K21.9 Gastro-esophageal reflux disease without esophagitis; I50.9 Heart failure, unspecified; I11.0 Hypertensive heart disease with heart failure; R29.6 Repeated falls; I25.10 Atherosclerotic heart disease of native coronary artery without angina pectoris; E78.5 Hyperlipidemia, unspecified; F17.210 Nicotine dependence, cigarettes, uncomplicated; J44.9 Chronic obstructive pulmonary disease, unspecified
CPT/HCPCS: 36415; 70450; 71045; 73560; 80053; 80164; 81001; 82306; 83605; 84484; 85025; 87040; 87449; 93005; 94640; 97162; 97166; 97530; 99285; 99406; J7030; J7040; J7050; P9612; A4216

== ENCOUNTER → 2021-07-27 | Outpatient (CLI) | payer MEDICARE, SELFPAY ==
[2021-07-27 17:58] LABS: Vitamin B12 > 2000 pg/mL (211-911)
[2021-07-27 18:15] LABS: AST(SGOT) 20 U/L (15-37); Alanine Aminotransfer ALT/SGPT 32 U/L (13-56); Albumin, Serum 3.1 g/dL (3.2-5.0); Alkaline Phosphatase 73 U/L (45-117); Anion Gap 6 (5-15); BUN 25 mg/dL (7-18); BUN/Creat Ratio 27.2 RATIO (10-20); Chloride 105 mmol/L (98-107); Cholesterol 144 mg/dL (200); Creatinine, Serum 0.92 mg/dL (0.55-1.02); EST Glomerular Filtration Rate 63 mL/min (>60); Est Glom Filt Rate - Afr Amer 77 mL/min (>60); Glucose 192 mg/dL (74-106); High Density Lipoprotein 48 mg/dL; Iron 53 ug/dL (50-170); Iron Binding Capacity,Total 331 ug/dL (250-450); Potassium 4.2 mmol/L (3.5-5.1); Protein, Total 6.1 g/dL (6.4-8.2); Sodium Level 138 mmol/L (136-145); Thyroid Stim Hormone (TSH) 0.45 uIU/mL (0.358-3.74); Triglycerides 217 mg/dL; Very Low Density Lipoprotein 43 mg/dL (5-40)
== END | disposition home or self-care (01) ==
PROVIDERS: PCP Internal Medicine; Referring Provider Family Medicine; Visit Provider Family Medicine
DX: H61.92 Disorder of left external ear, unspecified (principal); L81.9 Disorder of pigmentation, unspecified; E05.90 Thyrotoxicosis, unspecified without thyrotoxic crisis or storm
CPT/HCPCS: 36415; 80053; 80061; 82607; 83540; 83550; 84443

== ENCOUNTER → 2021-08-25 05:00 | Outpatient (REF) | payer MEDICARE, SELFPAY ==
[2021-08-25 08:54] LABS: Bacteria 0 SEEN /hpf (None Seen); Mucous, Urine 0 SEEN /hpf (<or=2+); Red Blood Cells-Urine 0 SEEN /hpf (0-5); White Blood Cells 0 SEEN /hpf (0-5)
[2021-08-25 09:03] LABS: Hematocrit 34.5 % (37-47); Hemoglobin 10.9 g/dL (12.0-15.0); Mean Corp Hgb Conc 31.6 g/dL (32-36); Mean Corpuscular Hgb 29.9 pg (27.0-32.0); Mean Corpuscular Volume 94.8 fL (81-99); Platelet Count 234 K/mm3 (150-450); RBC Distribution Width CV 13.9 % (11.6-14.6); RBC Distribution Width SD 48.6 fl (35.1-43.9); Red Blood Count 3.64 M/mm3 (4.2-5.4)
[2021-08-25 09:04] LABS: Color, Urine Straw (Yellow); Glucose, Dipstick Normal (Normal); Ketone-Dipstick Negative (Negative); Leukocyte Esterase-Dipstick Negative /ul (Negative); Nitrite-Dipstick Negative (Negative); Occult Blood-Urine Negative /ul (Negative); Protein-Dipstick Negative (Negative); Specific Gravity, Urine 1.005 (1.002-1.030); Urine Bilirubin Dipstick Negative (Negative); Urine Clarity Clear (Clear); Urine Urobilinogen Normal (Normal)
[2021-08-25 09:19] LABS: Squamous Epithelial Cells - UA 0-5 SEEN /hpf (5-10)
[2021-08-25 09:32] LABS: AST(SGOT) 20 U/L (15-37); Alanine Aminotransfer ALT/SGPT 32 U/L (13-56); Alkaline Phosphatase 73 U/L (45-117); Anion Gap 5 (5-15); BUN 17 mg/dL (7-18); BUN/Creat Ratio 20.2 RATIO (10-20); Calcium,Total 9.4 mg/dL (8.5-10.1); Chloride 110 mmol/L (98-107); Creatinine, Serum 0.84 mg/dL (0.55-1.02); EST Glomerular Filtration Rate 70 mL/min (>60); Est Glom Filt Rate - Afr Amer 85 mL/min (>60); Globulin 2.9 g/dL (2.2-4.2); Glucose 76 mg/dL (74-106); Potassium 4.3 mmol/L (3.5-5.1); Protein, Total 5.9 g/dL (6.4-8.2); Sodium Level 139 mmol/L (136-145)
== END ==
LOC: OLS.SANC 05:00
PROVIDERS: PCP Internal Medicine; Visit Provider Internal Medicine
DX: I11.0 Hypertensive heart disease with heart failure (principal); I50.9 Heart failure, unspecified; J44.9 Chronic obstructive pulmonary disease, unspecified; E78.5 Hyperlipidemia, unspecified; N39.0 Urinary tract infection, site not specified
CPT/HCPCS: 36415; 80053; 81001; 85027; 87086; 87088

== ENCOUNTER → 2021-09-01 | Outpatient (REF) | payer MEDICARE, SELFPAY ==
[2021-09-01 08:33] LABS: Absolute Lymphocyte Count 2.73 X10^3/uL (0.83-4.51); Absolute Neutrophil Count 3.3 X10^3/uL (2.0-7.7); Basophil# 0.04 X10^3/uL; Basophil% 0.6 % (0-1); Eosinophil# 0.18 X10^3/uL; Eosinophils% 2.7 % (0-5); Hematocrit 31.5 % (37-47); Hemoglobin 9.9 g/dL (12.0-15.0); Lymphocyte # 2.73 X10^3/ul (0.83-4.51); Lymphocyte % 40.5 % (19-41); Mean Corp Hgb Conc 31.4 g/dL (32-36); Mean Corpuscular Hgb 29.9 pg (27.0-32.0); Mean Corpuscular Volume 95.2 fL (81-99); Mean Platelet Vol. 10.7 fl (6.2-12.0); Monocyte# 0.51 X10^3/uL; Monocyte% 7.6 % (0-10); NRBC Flagged by Analyzer 0 % (0-5); Neutrophil # 3.27 X10^3/uL (2.7-7.7); Neutrophil % 48.5 % (47-70); Platelet Count 239 K/mm3 (150-450); RBC Distribution Width CV 14.4 % (11.6-14.6); RBC Distribution Width SD 50.4 fl (35.1-43.9); Red Blood Count 3.31 M/mm3 (4.2-5.4); White Blood Count 6.7 K/mm3 (4.4-11.0)
[2021-09-01 08:56] LABS: Anion Gap 5 (5-15); BUN 17 mg/dL (7-18); BUN/Creat Ratio 18.7 RATIO (10-20); Calcium,Total 9.2 mg/dL (8.5-10.1); Chloride 109 mmol/L (98-107); Creatinine, Serum 0.91 mg/dL (0.55-1.02); EST Glomerular Filtration Rate 64 mL/min (>60); Est Glom Filt Rate - Afr Amer 78 mL/min (>60); Glucose 78 mg/dL (74-106); Potassium 4.5 mmol/L (3.5-5.1); Sodium Level 140 mmol/L (136-145)
== END | disposition home or self-care (01) ==
LOC: OLS.SANC 05:00
PROVIDERS: PCP Internal Medicine; Visit Provider Internal Medicine
DX: E78.5 Hyperlipidemia, unspecified (principal); J44.9 Chronic obstructive pulmonary disease, unspecified
CPT/HCPCS: 36415; 80048; 85025

== ENCOUNTER → 2021-09-22 | Outpatient (REF) | payer MEDICARE, MEDICAID, SELFPAY ==
[2021-09-22 08:31] LABS: Absolute Lymphocyte Count 2.57 X10^3/uL (0.83-4.51); Absolute Neutrophil Count 2.8 X10^3/uL (2.0-7.7); Basophil# 0.06 X10^3/uL; Eosinophil# 0.25 X10^3/uL; Eosinophils% 4.1 % (0-5); Hematocrit 32.6 % (37-47); Hemoglobin 10.4 g/dL (12.0-15.0); Lymphocyte # 2.57 X10^3/ul (0.83-4.51); Lymphocyte % 41.9 % (19-41); Mean Corp Hgb Conc 31.9 g/dL (32-36); Mean Corpuscular Hgb 30.7 pg (27.0-32.0); Mean Corpuscular Volume 96.2 fL (81-99); Mean Platelet Vol. 10.7 fl (6.2-12.0); Monocyte# 0.47 X10^3/uL; Monocyte% 7.7 % (0-10); NRBC Flagged by Analyzer 0 % (0-5); Neutrophil # 2.77 X10^3/uL (2.7-7.7); Neutrophil % 45.1 % (47-70); Platelet Count 252 K/mm3 (150-450); RBC Distribution Width CV 14.2 % (11.6-14.6); RBC Distribution Width SD 50.2 fl (35.1-43.9); Red Blood Count 3.39 M/mm3 (4.2-5.4); White Blood Count 6.1 K/mm3 (4.4-11.0)
[2021-09-22 09:21] LABS: Anion Gap 5 (5-15); BUN 18 mg/dL (7-18); Calcium,Total 9.2 mg/dL (8.5-10.1); Chloride 111 mmol/L (98-107); Creatinine, Serum 0.86 mg/dL (0.55-1.02); EST Glomerular Filtration Rate 69 mL/min (>60); Est Glom Filt Rate - Afr Amer 83 mL/min (>60); Glucose 75 mg/dL (74-106); Potassium 4.4 mmol/L (3.5-5.1); Sodium Level 141 mmol/L (136-145)
== END | disposition home or self-care (01) ==
LOC: OLS.SANC 05:00
PROVIDERS: PCP Internal Medicine; Visit Provider Internal Medicine
DX: I10 Essential (primary) hypertension (principal); J44.9 Chronic obstructive pulmonary disease, unspecified
CPT/HCPCS: 36415; 80048; 85025

== ENCOUNTER → 2021-10-24 | Outpatient (REF) | payer MEDICARE, SELFPAY ==
[2021-10-24 09:21] LABS: Hemoglobin 10.7 g/dL (12.0-15.0); Mean Corp Hgb Conc 32.4 g/dL (32-36); Mean Corpuscular Hgb 30.5 pg (27.0-32.0); Mean Platelet Vol. 10.8 fl (6.2-12.0); Platelet Count 200 K/mm3 (150-450); RBC Distribution Width CV 14.4 % (11.6-14.6); RBC Distribution Width SD 49.3 fl (35.1-43.9); Red Blood Count 3.51 M/mm3 (4.2-5.4); White Blood Count 7.2 K/mm3 (4.4-11.0)
[2021-10-24 09:45] LABS: Anion Gap 5 (5-15); BUN 22 mg/dL (7-18); BUN/Creat Ratio 22.1 RATIO (10-20); Chloride 112 mmol/L (98-107); Creatinine, Serum 0.99 mg/dL (0.55-1.02); EST Glomerular Filtration Rate 58 mL/min (>60); Est Glom Filt Rate - Afr Amer 70 mL/min (>60); Glucose 66 mg/dL (74-106); Potassium 4.4 mmol/L (3.5-5.1); Sodium Level 142 mmol/L (136-145)
== END ==
LOC: OLS.SANC 04:00
PROVIDERS: PCP Internal Medicine; Referring Provider Internal Medicine; Visit Provider Internal Medicine
DX: I11.0 Hypertensive heart disease with heart failure (principal); I50.9 Heart failure, unspecified; J44.9 Chronic obstructive pulmonary disease, unspecified; E78.5 Hyperlipidemia, unspecified
CPT/HCPCS: 36415; 80048; 85027

== ENCOUNTER → 2021-11-14 | Outpatient (REF) | payer MEDICARE, MEDICAID, SELFPAY ==
[2021-11-14 09:53] LABS: Valproic Acid (Depakene) Level 26 ug/mL (50-100)
== END ==
LOC: OLS.SANC 04:00
PROVIDERS: PCP Internal Medicine; Referring Provider Internal Medicine; Visit Provider Internal Medicine
DX: Z79.899 Other long term (current) drug therapy (principal)
CPT/HCPCS: 36415; 80164

== ENCOUNTER → 2021-11-24 | Outpatient (REF) | payer MEDICARE, MEDICAID, SELFPAY ==
[2021-11-24 09:44] LABS: Hematocrit 31.5 % (37-47); Hemoglobin 10.1 g/dL (12.0-15.0); Mean Corp Hgb Conc 32.1 g/dL (32-36); Mean Corpuscular Hgb 30.9 pg (27.0-32.0); Mean Corpuscular Volume 96.3 fL (81-99); Mean Platelet Vol. 10.9 fl (6.2-12.0); Platelet Count 215 K/mm3 (150-450); RBC Distribution Width CV 14.2 % (11.6-14.6); RBC Distribution Width SD 50.1 fl (35.1-43.9); Red Blood Count 3.27 M/mm3 (4.2-5.4); White Blood Count 6.9 K/mm3 (4.4-11.0)
[2021-11-24 10:03] LABS: Anion Gap 6 (5-15); BUN 16 mg/dL (7-18); BUN/Creat Ratio 17.8 RATIO (10-20); Calcium,Total 8.9 mg/dL (8.5-10.1); Chloride 110 mmol/L (98-107); EST Glomerular Filtration Rate 65 mL/min (>60); Est Glom Filt Rate - Afr Amer 79 mL/min (>60); Glucose 68 mg/dL (74-106); Potassium 4.7 mmol/L (3.5-5.1); Sodium Level 142 mmol/L (136-145)
== END ==
LOC: OLS.SANC 05:00
PROVIDERS: PCP Internal Medicine; Visit Provider Internal Medicine
DX: J44.9 Chronic obstructive pulmonary disease, unspecified (principal); E78.5 Hyperlipidemia, unspecified
CPT/HCPCS: 36415; 80048; 85027

== ENCOUNTER → 2021-12-27 | Outpatient (REF) | payer MEDICARE, MEDICAID, SELFPAY ==
[2021-12-27 10:09] LABS: Anion Gap 5 (5-15); BUN 17 mg/dL (7-18); BUN/Creat Ratio 20.7 RATIO (10-20); Calcium,Total 9.1 mg/dL (8.5-10.1); Chloride 112 mmol/L (98-107); Creatinine, Serum 0.82 mg/dL (0.55-1.02); EST Glomerular Filtration Rate 72 mL/min (>60); Est Glom Filt Rate - Afr Amer 87 mL/min (>60); Glucose 69 mg/dL (74-106); Potassium 4.7 mmol/L (3.5-5.1); Sodium Level 140 mmol/L (136-145)
== END ==
LOC: OLS.SANC 05:00
PROVIDERS: PCP Internal Medicine; Visit Provider Internal Medicine
DX: Z79.899 Other long term (current) drug therapy (principal)
CPT/HCPCS: 36415; 80048

== ENCOUNTER → 2021-12-28 | Outpatient (REF) | payer MEDICARE, MEDICAID, SELFPAY ==
[2021-12-28 10:05] LABS: Hematocrit 32.4 % (37-47); Hemoglobin 10.5 g/dL (12.0-15.0); Mean Corp Hgb Conc 32.4 g/dL (32-36); Mean Corpuscular Hgb 30.7 pg (27.0-32.0); Mean Corpuscular Volume 94.7 fL (81-99); Mean Platelet Vol. 11.1 fl (6.2-12.0); Platelet Count 224 K/mm3 (150-450); RBC Distribution Width CV 14.4 % (11.6-14.6); RBC Distribution Width SD 49.7 fl (35.1-43.9); Red Blood Count 3.42 M/mm3 (4.2-5.4); White Blood Count 7.3 K/mm3 (4.4-11.0)
== END ==
LOC: OLS.SANC 07:30
PROVIDERS: PCP Internal Medicine; Referring Provider Internal Medicine; Visit Provider Internal Medicine
DX: Z79.899 Other long term (current) drug therapy (principal)
CPT/HCPCS: 85027

== ENCOUNTER → 2022-01-04 | Outpatient (REF) | payer MEDICARE, SELFPAY ==
[2022-01-04 07:23] LABS: Hematocrit 32.6 % (37-47); Hemoglobin 10.4 g/dL (12.0-15.0); Mean Corp Hgb Conc 31.9 g/dL (32-36); Mean Corpuscular Hgb 30.6 pg (27.0-32.0); Mean Corpuscular Volume 95.9 fL (81-99); Mean Platelet Vol. 10.7 fl (6.2-12.0); Platelet Count 233 K/mm3 (150-450); RBC Distribution Width CV 14.2 % (11.6-14.6); RBC Distribution Width SD 50.1 fl (35.1-43.9); White Blood Count 7.2 K/mm3 (4.4-11.0)
[2022-01-04 07:41] LABS: Anion Gap 5 (5-15); BUN 21 mg/dL (7-18); BUN/Creat Ratio 22.8 RATIO (10-20); Calcium,Total 8.8 mg/dL (8.5-10.1); Chloride 112 mmol/L (98-107); Cholesterol 146 mg/dL (200); Creatinine, Serum 0.92 mg/dL (0.55-1.02); EST Glomerular Filtration Rate 63 mL/min (>60); Est Glom Filt Rate - Afr Amer 76 mL/min (>60); Glucose 73 mg/dL (74-106); High Density Lipoprotein 49 mg/dL; Potassium 4.6 mmol/L (3.5-5.1); Sodium Level 141 mmol/L (136-145); Triglycerides 126 mg/dL; Very Low Density Lipoprotein 25 mg/dL (5-40)
== END ==
LOC: OLS.SANC 05:00
PROVIDERS: PCP Internal Medicine; Visit Provider Internal Medicine
DX: J44.9 Chronic obstructive pulmonary disease, unspecified (principal); I10 Essential (primary) hypertension; E78.5 Hyperlipidemia, unspecified; Z79.899 Other long term (current) drug therapy
CPT/HCPCS: 36415; 80048; 80061; 80184; 85027

== ENCOUNTER → 2022-02-13 | Outpatient (REF) | payer MEDICARE, SELFPAY ==
[2022-02-13 08:54] LABS: Valproic Acid (Depakene) Level 24 ug/mL (50-100)
== END ==
LOC: OLS.SANC 05:00
PROVIDERS: PCP Internal Medicine; Visit Provider Internal Medicine
DX: I11.0 Hypertensive heart disease with heart failure (principal); I50.9 Heart failure, unspecified; J44.9 Chronic obstructive pulmonary disease, unspecified; E78.5 Hyperlipidemia, unspecified
CPT/HCPCS: 36415; 80164

== ENCOUNTER → 2022-03-06 | Outpatient (REF) | payer MEDICARE, SELFPAY ==
[2022-03-06 10:21] LABS: Hematocrit 32.6 % (37-47); Hemoglobin 10.4 g/dL (12.0-15.0); Mean Corp Hgb Conc 31.9 g/dL (32-36); Mean Corpuscular Hgb 30.8 pg (27.0-32.0); Mean Corpuscular Volume 96.4 fL (81-99); Mean Platelet Vol. 11.3 fl (6.2-12.0); Platelet Count 234 K/mm3 (150-450); RBC Distribution Width CV 14.3 % (11.6-14.6); RBC Distribution Width SD 50.4 fl (35.1-43.9); Red Blood Count 3.38 M/mm3 (4.2-5.4); White Blood Count 6.5 K/mm3 (4.4-11.0)
[2022-03-06 10:34] LABS: Cholesterol 158 mg/dL (200); High Density Lipoprotein 51 mg/dL; Triglycerides 136 mg/dL; Valproic Acid (Depakene) Level 26 ug/mL (50-100); Very Low Density Lipoprotein 27 mg/dL (5-40)
== END ==
LOC: OLS.SANC 04:00
PROVIDERS: PCP Internal Medicine; Referring Provider Internal Medicine; Visit Provider Internal Medicine
DX: I50.9 Heart failure, unspecified (principal); J44.9 Chronic obstructive pulmonary disease, unspecified; G20 Parkinson's disease
CPT/HCPCS: 36415; 80061; 80164; 85027

== ENCOUNTER → 2022-03-20 | Outpatient (REF) | payer MEDICARE, SELFPAY ==
[2022-03-20 09:14] LABS: Valproic Acid (Depakene) Level 45 ug/mL (50-100)
== END ==
LOC: OLS.SANC 05:00
PROVIDERS: PCP Internal Medicine; Visit Provider Internal Medicine
DX: Z79.899 Other long term (current) drug therapy (principal)
CPT/HCPCS: 36415; 80164

== ENCOUNTER → 2022-04-27 | Outpatient (REF) | payer MEDICARE, SELFPAY ==
[2022-04-27 09:48] LABS: Platelet Count 232 K/mm3 (150-450)
[2022-04-27 10:00] LABS: AST(SGOT) 13 U/L (15-37); Alanine Aminotransfer ALT/SGPT 9 U/L (13-56)
[2022-04-27 10:04] LABS: Valproic Acid (Depakene) Level 27 ug/mL (50-100)
== END ==
LOC: OLS.SANC 04:00
PROVIDERS: PCP Internal Medicine; Referring Provider Internal Medicine; Visit Provider Internal Medicine
DX: I11.0 Hypertensive heart disease with heart failure (principal); I50.9 Heart failure, unspecified; J44.9 Chronic obstructive pulmonary disease, unspecified; E78.5 Hyperlipidemia, unspecified
CPT/HCPCS: 36415; 80164; 82140; 84450; 84460; 85049

== ENCOUNTER → 2022-05-08 | Outpatient (REF) | payer MEDICARE, SELFPAY | LOC: OLS.SANC 04:00 | PROVIDERS: PCP Internal Medicine; Referring Provider Internal Medicine; Visit Provider Internal Medicine | DX: J44.9 Chronic obstructive pulmonary disease, unspecified (principal); I10 Essential (primary) hypertension; E78.5 Hyperlipidemia, unspecified; Z79.899 Other long term (current) drug therapy | CPT/HCPCS: 36415; 82140 ==

== ENCOUNTER → 2022-05-17 | Outpatient (REF) | payer MEDICARE, MEDICAID, SELFPAY ==
[2022-05-17 09:47] LABS: Erythrocyte Sedimentation Rate 12 mm/hr (0-30)
[2022-05-17 10:05] LABS: Vitamin B12 623 pg/mL (211-911)
[2022-05-17 10:26] LABS: Hemoglobin A1c 5.7 % (3.8-5.6)
[2022-05-20 09:00] LABS: Immunoglobulin E 34 IU/mL (6-495)
== END ==
LOC: OLS.SANC 05:00
PROVIDERS: PCP Internal Medicine; Visit Provider Internal Medicine
DX: E11.9 Type 2 diabetes mellitus without complications (principal); M15.0 Primary generalized (osteo)arthritis; M62.81 Muscle weakness (generalized); Z79.899 Other long term (current) drug therapy
CPT/HCPCS: 36415; 82607; 82785; 83036; 85652; 86431

== ENCOUNTER → 2022-06-15 | Outpatient (REF) | payer MEDICARE, MEDICAID, SELFPAY ==
[2022-06-15 08:45] LABS: Valproic Acid (Depakene) Level 39 ug/mL (50-100)
== END ==
LOC: OLS.SANC 05:00
PROVIDERS: PCP Internal Medicine; Visit Provider Internal Medicine
DX: I11.0 Hypertensive heart disease with heart failure (principal); I50.9 Heart failure, unspecified; J44.9 Chronic obstructive pulmonary disease, unspecified; E78.5 Hyperlipidemia, unspecified
CPT/HCPCS: 36415; 80164

== ENCOUNTER → 2022-07-04 | Outpatient (REF) | payer MEDICARE, MEDICAID, SELFPAY ==
[2022-07-04 09:19] LABS: Hematocrit 33.1 % (37-47); Hemoglobin 10.4 g/dL (12.0-15.0); Mean Corp Hgb Conc 31.4 g/dL (32-36); Mean Corpuscular Volume 95.4 fL (81-99); Mean Platelet Vol. 10.9 fl (6.2-12.0); Platelet Count 229 K/mm3 (150-450); RBC Distribution Width CV 15.1 % (11.6-14.6); RBC Distribution Width SD 52.7 fl (35.1-43.9); Red Blood Count 3.47 M/mm3 (4.2-5.4); White Blood Count 8.1 K/mm3 (4.4-11.0)
[2022-07-04 09:29] LABS: Anion Gap 4 (5-15); BUN 24 mg/dL (7-18); BUN/Creat Ratio 27.2 RATIO (10-20); Calcium,Total 8.7 mg/dL (8.5-10.1); Chloride 113 mmol/L (98-107); Creatinine, Serum 0.88 mg/dL (0.55-1.02); EST Glomerular Filtration Rate 66 mL/min (>60); Est Glom Filt Rate - Afr Amer 80 mL/min (>60); Glucose 64 mg/dL (74-106); Potassium 4.6 mmol/L (3.5-5.1); Sodium Level 143 mmol/L (136-145)
== END ==
LOC: OLS.SANC 05:00
PROVIDERS: PCP Internal Medicine; Visit Provider Internal Medicine
DX: I10 Essential (primary) hypertension (principal); E78.5 Hyperlipidemia, unspecified; Z79.899 Other long term (current) drug therapy
CPT/HCPCS: 36415; 80048; 80184; 85027

== ENCOUNTER → 2022-07-20 | Outpatient (REF) | payer MEDICARE, MEDICAID, SELFPAY ==
[2022-07-20 09:23] LABS: Valproic Acid (Depakene) Level 39 ug/mL (50-100)
[2022-07-20 09:39] LABS: ALB/GLOB Ratio 0.9 RATIO (0.9-2.4); AST(SGOT) 16 U/L (15-37); Alanine Aminotransfer ALT/SGPT < 6 U/L (13-56); Albumin, Serum 2.8 g/dL (3.2-5.0); Alkaline Phosphatase 87 U/L (45-117); Anion Gap 5 (5-15); BUN 22 mg/dL (7-18); BUN/Creat Ratio 24.2 RATIO (10-20); Chloride 112 mmol/L (98-107); Creatinine, Serum 0.91 mg/dL (0.55-1.02); EST Glomerular Filtration Rate 64 mL/min (>60); Est Glom Filt Rate - Afr Amer 77 mL/min (>60); Glucose 78 mg/dL (74-106); Potassium 4.7 mmol/L (3.5-5.1); Protein, Total 5.8 g/dL (6.4-8.2); Sodium Level 142 mmol/L (136-145)
== END ==
LOC: OLS.SANC 05:00
PROVIDERS: PCP Internal Medicine; Visit Provider Internal Medicine
DX: F20.9 Schizophrenia, unspecified (principal); I11.0 Hypertensive heart disease with heart failure; I50.9 Heart failure, unspecified; J44.9 Chronic obstructive pulmonary disease, unspecified; R53.83 Other fatigue; E78.5 Hyperlipidemia, unspecified
CPT/HCPCS: 36415; 80053; 80164; 82140

== ENCOUNTER → 2022-08-14 | Outpatient (REF) | payer MEDICARE, MEDICAID, SELFPAY ==
[2022-08-14 10:47] LABS: Valproic Acid (Depakene) Level 57 ug/mL (50-100)
== END ==
LOC: OLS.SANC 05:00
PROVIDERS: PCP Internal Medicine; Visit Provider Internal Medicine
DX: I11.0 Hypertensive heart disease with heart failure (principal); I50.9 Heart failure, unspecified; J44.9 Chronic obstructive pulmonary disease, unspecified; E78.5 Hyperlipidemia, unspecified; Z79.899 Other long term (current) drug therapy
CPT/HCPCS: 36415; 80164

== ENCOUNTER → 2022-08-15 | Outpatient (REF) | payer MEDICARE, MEDICAID, SELFPAY ==
[2022-08-15 08:10] LABS: Hematocrit 34.5 % (37-47); Hemoglobin 10.8 g/dL (12.0-15.0); Mean Corp Hgb Conc 31.3 g/dL (32-36); Mean Corpuscular Hgb 30.3 pg (27.0-32.0); Mean Corpuscular Volume 96.6 fL (81-99); Mean Platelet Vol. 10.8 fl (6.2-12.0); Platelet Count 205 K/mm3 (150-450); RBC Distribution Width CV 15.5 % (11.6-14.6); RBC Distribution Width SD 54.9 fl (35.1-43.9); Red Blood Count 3.57 M/mm3 (4.2-5.4); White Blood Count 7.2 K/mm3 (4.4-11.0)
[2022-08-15 08:18] LABS: Anion Gap 4 (5-15); BUN 26 mg/dL (7-18); BUN/Creat Ratio 26.6 RATIO (10-20); Chloride 113 mmol/L (98-107); Creatinine, Serum 0.98 mg/dL (0.55-1.02); EST Glomerular Filtration Rate 59 mL/min (>60); Est Glom Filt Rate - Afr Amer 71 mL/min (>60); Glucose 70 mg/dL (74-106); Sodium Level 140 mmol/L (136-145)
== END ==
LOC: OLS.SANC 05:00
PROVIDERS: PCP Internal Medicine; Visit Provider Internal Medicine
DX: I10 Essential (primary) hypertension (principal); J44.9 Chronic obstructive pulmonary disease, unspecified
CPT/HCPCS: 36415; 80048; 85027

== ENCOUNTER → 2022-08-25 | Outpatient (REF) | payer MEDICARE, MEDICAID, SELFPAY ==
[2022-08-25 08:54] LABS: Hematocrit 33.9 % (37-47); Hemoglobin 10.7 g/dL (12.0-15.0); Mean Corp Hgb Conc 31.6 g/dL (32-36); Mean Corpuscular Hgb 30.6 pg (27.0-32.0); Mean Corpuscular Volume 96.9 fL (81-99); Mean Platelet Vol. 10.7 fl (6.2-12.0); Platelet Count 213 K/mm3 (150-450); RBC Distribution Width CV 15.4 % (11.6-14.6); RBC Distribution Width SD 54.7 fl (35.1-43.9); White Blood Count 7.1 K/mm3 (4.4-11.0)
[2022-08-25 09:09] LABS: ALB/GLOB Ratio 0.8 RATIO (0.9-2.4); AST(SGOT) 9 U/L (15-37); Alanine Aminotransfer ALT/SGPT < 6 U/L (13-56); Albumin, Serum 2.4 g/dL (3.2-5.0); Alkaline Phosphatase 78 U/L (45-117); Anion Gap 4 (5-15); BUN 22 mg/dL (7-18); BUN/Creat Ratio 21.2 RATIO (10-20); Calcium,Total 8.8 mg/dL (8.5-10.1); Chloride 112 mmol/L (98-107); Creatinine, Serum 1.04 mg/dL (0.55-1.02); EST Glomerular Filtration Rate 55 mL/min (>60); Est Glom Filt Rate - Afr Amer 66 mL/min (>60); Globulin 3.1 g/dL (2.2-4.2); Glucose 67 mg/dL (74-106); Potassium 4.8 mmol/L (3.5-5.1); Prolactin 85.6 ng/mL; Protein, Total 5.5 g/dL (6.4-8.2); Sodium Level 140 mmol/L (136-145)
[2022-08-25 09:12] LABS: Valproic Acid (Depakene) Level 51 ug/mL (50-100)
== END ==
LOC: OLS.SANC 05:00
PROVIDERS: PCP Internal Medicine; Visit Provider Internal Medicine
DX: I10 Essential (primary) hypertension (principal); J44.9 Chronic obstructive pulmonary disease, unspecified; E78.5 Hyperlipidemia, unspecified
CPT/HCPCS: 36415; 80053; 80164; 82140; 84146; 85027

== ENCOUNTER → 2022-08-28 | Outpatient (REF) | payer MEDICARE, MEDICAID, SELFPAY ==
[2022-08-28 08:47] LABS: Bacteria 0 SEEN /hpf (None Seen); Mucous, Urine 0 SEEN /hpf (<or=2+); Red Blood Cells-Urine 0 SEEN /hpf (0-5); White Blood Cells 0 SEEN /hpf (0-5)
[2022-08-28 09:22] LABS: Color, Urine Yellow (Yellow); Glucose, Dipstick Normal (Normal); Ketone-Dipstick Negative (Negative); Leukocyte Esterase-Dipstick 25 /ul (Negative); Nitrite-Dipstick Negative (Negative); Occult Blood-Urine 25 /ul (Negative); Protein-Dipstick Negative (Negative); Urine Bilirubin Dipstick Negative (Negative); Urine Clarity Sl. Cloudy (Clear); Urine Urobilinogen Normal (Normal); Urine pH 6.5 (5.0 - 8.0)
[2022-08-28 09:48] LABS: Squamous Epithelial Cells - UA 0-5 SEEN /hpf (5-10)
== END ==
LOC: OLS.SANC 05:00
PROVIDERS: PCP Internal Medicine; Visit Provider Internal Medicine
DX: I50.9 Heart failure, unspecified (principal); J44.9 Chronic obstructive pulmonary disease, unspecified; E78.5 Hyperlipidemia, unspecified; G20 Parkinson's disease; Z79.899 Other long term (current) drug therapy
CPT/HCPCS: 81001; 87086; 87088

== ENCOUNTER → 2022-09-14 | Outpatient (REF) | payer MEDICARE, MEDICAID, SELFPAY ==
[2022-09-14 10:01] LABS: Hematocrit 39.8 % (37-47); Hemoglobin 12.6 g/dL (12.0-15.0); Mean Corp Hgb Conc 31.7 g/dL (32-36); Mean Platelet Vol. 10.7 fl (6.2-12.0); Platelet Count 232 K/mm3 (150-450); RBC Distribution Width CV 14.5 % (11.6-14.6); RBC Distribution Width SD 52.3 fl (35.1-43.9); Red Blood Count 4.06 M/mm3 (4.2-5.4); White Blood Count 6.6 K/mm3 (4.4-11.0)
[2022-09-14 10:13] LABS: Anion Gap 5 (5-15); BUN 21 mg/dL (7-18); BUN/Creat Ratio 22.1 RATIO (10-20); Calcium,Total 9.4 mg/dL (8.5-10.1); Chloride 111 mmol/L (98-107); Creatinine, Serum 0.95 mg/dL (0.55-1.02); EST Glomerular Filtration Rate 61 mL/min (>60); Est Glom Filt Rate - Afr Amer 73 mL/min (>60); Glucose 88 mg/dL (74-106); Potassium 5.1 mmol/L (3.5-5.1); Sodium Level 141 mmol/L (136-145)
== END ==
LOC: OLS.SANC 05:00
PROVIDERS: PCP Internal Medicine; Visit Provider Internal Medicine
DX: I10 Essential (primary) hypertension (principal); E78.5 Hyperlipidemia, unspecified; Z79.899 Other long term (current) drug therapy
CPT/HCPCS: 36415; 80048; 85027

== ENCOUNTER → 2022-09-22 | Outpatient (REF) | payer MEDICARE, MEDICAID, SELFPAY | LOC: OLS.SANC 05:00 | PROVIDERS: PCP Internal Medicine; Visit Provider Internal Medicine | DX: I10 Essential (primary) hypertension (principal); J44.9 Chronic obstructive pulmonary disease, unspecified | CPT/HCPCS: 36415; 82140 ==

== ENCOUNTER → 2022-10-03 | Outpatient (REF) | payer MEDICARE, MEDICAID, SELFPAY | LOC: OLS.SANC 05:00 | PROVIDERS: PCP Internal Medicine; Visit Provider Internal Medicine | DX: F20.9 Schizophrenia, unspecified (principal); F31.9 Bipolar disorder, unspecified; I10 Essential (primary) hypertension; J44.9 Chronic obstructive pulmonary disease, unspecified; E78.5 Hyperlipidemia, unspecified | CPT/HCPCS: 36415; 80184 ==

== ENCOUNTER → 2022-10-04 | Outpatient (REF) | payer MEDICARE, MEDICAID, SELFPAY | LOC: OLS.SANC 05:00 | PROVIDERS: PCP Internal Medicine; Visit Provider Internal Medicine | DX: Z79.899 Other long term (current) drug therapy (principal) | CPT/HCPCS: 36415; 80184 ==

== ENCOUNTER → 2022-10-16 | Outpatient (REF) | payer MEDICARE, MEDICAID, SELFPAY ==
[2022-10-16 09:12] LABS: Hematocrit 37.6 % (37-47); Hemoglobin 11.6 g/dL (12.0-15.0); Mean Corp Hgb Conc 30.9 g/dL (32-36); Mean Corpuscular Hgb 30.7 pg (27.0-32.0); Mean Corpuscular Volume 99.5 fL (81-99); Mean Platelet Vol. 10.6 fl (6.2-12.0); Platelet Count 230 K/mm3 (150-450); RBC Distribution Width SD 51.4 fl (35.1-43.9); Red Blood Count 3.78 M/mm3 (4.2-5.4); White Blood Count 6.2 K/mm3 (4.4-11.0)
[2022-10-16 09:41] LABS: Anion Gap 3 (5-15); BUN 23 mg/dL (7-18); BUN/Creat Ratio 24.2 RATIO (10-20); Calcium,Total 9.3 mg/dL (8.5-10.1); Chloride 112 mmol/L (98-107); Creatinine, Serum 0.95 mg/dL (0.55-1.02); EST Glomerular Filtration Rate 61 mL/min (>60); Est Glom Filt Rate - Afr Amer 73 mL/min (>60); Glucose 81 mg/dL (74-106); Potassium 4.5 mmol/L (3.5-5.1); Sodium Level 141 mmol/L (136-145)
== END ==
LOC: OLS.SANC 05:00
PROVIDERS: PCP Internal Medicine; Visit Provider Internal Medicine
DX: J44.9 Chronic obstructive pulmonary disease, unspecified (principal); I10 Essential (primary) hypertension; E78.5 Hyperlipidemia, unspecified
CPT/HCPCS: 36415; 80048; 85027

== ENCOUNTER → 2022-10-31 | Outpatient (REF) | payer MEDICARE, MEDICAID, SELFPAY ==
[2022-10-31 09:07] LABS: Cholesterol 141 mg/dL (200); High Density Lipoprotein 47 mg/dL; Triglycerides 125 mg/dL; Very Low Density Lipoprotein 25 mg/dL (5-40)
[2022-10-31 09:24] LABS: Valproic Acid (Depakene) Level 55 ug/mL (50-100)
== END ==
LOC: OLS.SANC 04:00
PROVIDERS: PCP Internal Medicine; Visit Provider Internal Medicine
DX: I50.9 Heart failure, unspecified (principal); J44.9 Chronic obstructive pulmonary disease, unspecified; F31.9 Bipolar disorder, unspecified; Z79.899 Other long term (current) drug therapy
CPT/HCPCS: 36415; 80061; 80164

== ENCOUNTER → 2022-11-15 | Outpatient (REF) | payer MEDICARE, MEDICAID, SELFPAY ==
[2022-11-15 09:37] LABS: Hemoglobin A1c 5.7 % (3.8-5.6)
== END ==
LOC: OLS.SANC 06:56
PROVIDERS: PCP Internal Medicine; Visit Provider Internal Medicine
DX: E11.9 Type 2 diabetes mellitus without complications (principal)
CPT/HCPCS: 36415; 83036

== ENCOUNTER → 2022-11-20 | Outpatient (REF) | payer MEDICARE, MEDICAID, SELFPAY ==
[2022-11-20 09:24] LABS: Valproic Acid (Depakene) Level 49 ug/mL (50-100)
== END ==
LOC: OLS.SANC 04:00
PROVIDERS: PCP Internal Medicine; Referring Provider Internal Medicine; Visit Provider Internal Medicine
DX: I11.0 Hypertensive heart disease with heart failure (principal); I50.9 Heart failure, unspecified; J44.9 Chronic obstructive pulmonary disease, unspecified; E78.5 Hyperlipidemia, unspecified; F31.9 Bipolar disorder, unspecified
CPT/HCPCS: 36415; 80164

== ENCOUNTER → 2023-01-03 | Outpatient (REF) | payer MEDICARE, MEDICAID, SELFPAY ==
[2023-01-05 04:50] LABS: Cholesterol 137 mg/dL (200); High Density Lipoprotein 48 mg/dL; Triglycerides 98 mg/dL; Very Low Density Lipoprotein 20 mg/dL (5-40)
== END ==
LOC: OLS.SANC 05:00
PROVIDERS: PCP Internal Medicine; Visit Provider Internal Medicine
DX: J44.9 Chronic obstructive pulmonary disease, unspecified (principal); Z79.899 Other long term (current) drug therapy; I50.9 Heart failure, unspecified; E78.5 Hyperlipidemia, unspecified
CPT/HCPCS: 36415; 80061; 80184

== ENCOUNTER → 2023-01-16 | Outpatient (REF) | payer MEDICARE, MEDICAID, SELFPAY ==
[2023-01-16 10:13] LABS: Hematocrit 33.5 % (37-47); Hemoglobin 10.8 g/dL (12.0-15.0); Mean Corp Hgb Conc 32.2 g/dL (32-36); Mean Corpuscular Volume 99.1 fL (81-99); Mean Platelet Vol. 10.4 fl (6.2-12.0); Platelet Count 208 K/mm3 (150-450); RBC Distribution Width CV 14.2 % (11.6-14.6); RBC Distribution Width SD 51.9 fl (35.1-43.9); Red Blood Count 3.38 M/mm3 (4.2-5.4); White Blood Count 9.7 K/mm3 (4.4-11.0)
[2023-01-16 10:14] LABS: Bacteria 0 SEEN /hpf (None Seen); Mucous, Urine 0 SEEN /hpf (<or=2+); Red Blood Cells-Urine 0 SEEN /hpf (0-5); Squamous Epithelial Cells - UA 0 SEEN /hpf (5-10); White Blood Cells 0 SEEN /hpf (0-5)
[2023-01-16 10:27] LABS: Color, Urine Yellow (Yellow); Glucose, Dipstick Normal (Normal); Ketone-Dipstick Negative (Negative); Leukocyte Esterase-Dipstick 25 /ul (Negative); Nitrite-Dipstick Negative (Negative); Occult Blood-Urine 10 /ul (Negative); Protein-Dipstick Negative (Negative); Urine Bilirubin Dipstick Negative (Negative); Urine Clarity Clear (Clear); Urine Urobilinogen Normal (Normal); Urine pH 6.5 (5.0 - 8.0)
[2023-01-16 10:34] LABS: Anion Gap 4 (5-15); BUN 20 mg/dL (7-18); BUN/Creat Ratio 23.9 RATIO (10-20); Calcium,Total 8.6 mg/dL (8.5-10.1); Chloride 112 mmol/L (98-107); Creatinine, Serum 0.84 mg/dL (0.55-1.02); EST Glomerular Filtration Rate 70 mL/min (>60); Est Glom Filt Rate - Afr Amer 85 mL/min (>60); Glucose 76 mg/dL (74-106); Potassium 4.4 mmol/L (3.5-5.1); Sodium Level 142 mmol/L (136-145)
== END ==
LOC: OLS.SANC 05:00
PROVIDERS: PCP Internal Medicine; Visit Provider Internal Medicine
DX: J44.9 Chronic obstructive pulmonary disease, unspecified (principal); I10 Essential (primary) hypertension; N39.0 Urinary tract infection, site not specified; Z79.899 Other long term (current) drug therapy
CPT/HCPCS: 36415; 80048; 81001; 85027; 87086; 87088

== ENCOUNTER → 2023-02-06 | Outpatient (REF) | payer MEDICARE, MEDICAID, SELFPAY ==
[2023-02-06 09:28] LABS: Valproic Acid (Depakene) Level 58 ug/mL (50-100)
== END ==
LOC: OLS.SANC 05:00
PROVIDERS: PCP Internal Medicine; Visit Provider Internal Medicine
DX: I11.0 Hypertensive heart disease with heart failure (principal); I50.9 Heart failure, unspecified; J44.9 Chronic obstructive pulmonary disease, unspecified; E78.5 Hyperlipidemia, unspecified
CPT/HCPCS: 36415; 80164

== ENCOUNTER → 2023-04-01 | Outpatient (REF) | payer MEDICARE, SELFPAY ==
[2023-04-02 09:04] LABS: Mucous, Urine 0 SEEN /hpf (<or=2+)
[2023-04-02 09:13] LABS: Color, Urine Yellow (Yellow); Glucose, Dipstick Normal (Normal); Ketone-Dipstick 5 mg/dl (Negative); Leukocyte Esterase-Dipstick 25 /ul (Negative); Nitrite-Dipstick Negative (Negative); Occult Blood-Urine 10 /ul (Negative); Protein-Dipstick 15 mg/dl (Negative); Urine Bilirubin Dipstick Negative (Negative); Urine Clarity Sl. Cloudy (Clear); Urine Urobilinogen Normal (Normal); Urine pH 6.5 (5.0 - 8.0)
[2023-04-02 09:35] LABS: Bacteria 3+ /hpf (None Seen); Red Blood Cells-Urine 0-5 SEEN /hpf (0-5); Squamous Epithelial Cells - UA 0-5 SEEN /hpf (5-10); White Blood Cells 0-5 SEEN /hpf (0-5)
== END ==
LOC: OLS.SANC 15:15
PROVIDERS: PCP Internal Medicine; Visit Provider Internal Medicine
DX: N39.0 Urinary tract infection, site not specified (principal)
CPT/HCPCS: 81001; 87077; 87086; 87088; 87186

== ENCOUNTER → 2023-04-17 | Outpatient (REF) | payer MEDICARE, MEDICAID, SELFPAY ==
[2023-04-17 09:41] LABS: Hematocrit 35.1 % (37-47); Hemoglobin 10.8 g/dL (12.0-15.0); Mean Corp Hgb Conc 30.8 g/dL (32-36); Mean Corpuscular Hgb 30.7 pg (27.0-32.0); Mean Corpuscular Volume 99.7 fL (81-99); Mean Platelet Vol. 10.6 fl (6.2-12.0); Platelet Count 258 K/mm3 (150-450); RBC Distribution Width SD 50.9 fl (35.1-43.9); Red Blood Count 3.52 M/mm3 (4.2-5.4); White Blood Count 6.7 K/mm3 (4.4-11.0)
[2023-04-17 10:29] LABS: ALB/GLOB Ratio 0.8 RATIO (0.9-2.4); AST(SGOT) 10 U/L (15-37); Alanine Aminotransfer ALT/SGPT < 6 U/L (13-56); Albumin, Serum 2.4 g/dL (3.2-5.0); Alkaline Phosphatase 70 U/L (45-117); Anion Gap 2 (5-15); BUN 24 mg/dL (7-18); BUN/Creat Ratio 26.8 RATIO (10-20); Calcium,Total 9.3 mg/dL (8.5-10.1); Chloride 112 mmol/L (98-107); EST Glomerular Filtration Rate 65 mL/min (>60); Est Glom Filt Rate - Afr Amer 79 mL/min (>60); Glucose 72 mg/dL (74-106); Potassium 4.8 mmol/L (3.5-5.1); Protein, Total 5.4 g/dL (6.4-8.2); Sodium Level 141 mmol/L (136-145)
== END ==
LOC: OLS.SANC 05:00
PROVIDERS: PCP Internal Medicine; Visit Provider Internal Medicine
DX: I11.0 Hypertensive heart disease with heart failure (principal); I50.9 Heart failure, unspecified; J44.9 Chronic obstructive pulmonary disease, unspecified; E78.5 Hyperlipidemia, unspecified
CPT/HCPCS: 36415; 80053; 85027

== ENCOUNTER → 2023-04-26 | Outpatient (REF) | payer MEDICARE, SELFPAY ==
[2023-04-27 08:45] LABS: Mucous, Urine 0 SEEN /hpf (<or=2+)
[2023-04-27 09:03] LABS: Color, Urine Yellow (Yellow); Glucose, Dipstick Normal (Normal); Ketone-Dipstick 5 mg/dl (Negative); Leukocyte Esterase-Dipstick 100 /ul (Negative); Nitrite-Dipstick Negative (Negative); Occult Blood-Urine 50 /ul (Negative); Protein-Dipstick 30 mg/dl (Negative); Urine Bilirubin Dipstick Negative (Negative); Urine Clarity Clear (Clear); Urine Urobilinogen Normal (Normal); Urine pH 6.5 (5.0 - 8.0)
[2023-04-27 09:30] LABS: Bacteria 1+ /hpf (None Seen); Red Blood Cells-Urine 0-5 SEEN /hpf (0-5); Squamous Epithelial Cells - UA 0-5 SEEN /hpf (5-10); White Blood Cells 10-25 SEEN /hpf (0-5)
[2023-04-27 09:31] LABS: Other Crystals-Urine RARE /hpf (None Seen)
== END ==
LOC: OLS.SANC 20:30
PROVIDERS: PCP Internal Medicine; Visit Provider Internal Medicine
DX: N39.0 Urinary tract infection, site not specified (principal)
CPT/HCPCS: 81001; 87086; 87088

== ENCOUNTER → 2023-04-30 | Outpatient (REF) | payer MEDICARE, MEDICAID, SELFPAY ==
[2023-04-30 10:11] LABS: AST(SGOT) 13 U/L (15-37); Alanine Aminotransfer ALT/SGPT < 6 U/L (13-56); Albumin, Serum 2.5 g/dL (3.2-5.0); Alkaline Phosphatase 68 U/L (45-117); Globulin 3.1 g/dL (2.2-4.2); Protein, Total 5.6 g/dL (6.4-8.2)
[2023-05-01 09:55] LABS: Hematocrit 35.5 % (37-47); Hemoglobin 11.3 g/dL (12.0-15.0); Mean Corp Hgb Conc 31.8 g/dL (32-36); Mean Corpuscular Hgb 31.5 pg (27.0-32.0); Mean Corpuscular Volume 98.9 fL (81-99); Mean Platelet Vol. 11.1 fl (6.2-12.0); Platelet Count 226 K/mm3 (150-450); RBC Distribution Width CV 13.5 % (11.6-14.6); RBC Distribution Width SD 49.5 fl (35.1-43.9); Red Blood Count 3.59 M/mm3 (4.2-5.4); White Blood Count 6.9 K/mm3 (4.4-11.0)
[2023-05-01 10:12] LABS: Anion Gap 7 (5-15); BUN 23 mg/dL (7-18); BUN/Creat Ratio 28.5 RATIO (10-20); Calcium,Total 9.2 mg/dL (8.5-10.1); Chloride 112 mmol/L (98-107); Cholesterol 154 mg/dL (200); Creatinine, Serum 0.81 mg/dL (0.55-1.02); EST Glomerular Filtration Rate 73 mL/min (>60); Est Glom Filt Rate - Afr Amer 89 mL/min (>60); Glucose 69 mg/dL (74-106); High Density Lipoprotein 47 mg/dL; Potassium 5.3 mmol/L (3.5-5.1); Sodium Level 145 mmol/L (136-145); Triglycerides 154 mg/dL; Very Low Density Lipoprotein 31 mg/dL (5-40)
== END ==
LOC: OLS.SANC 05:00
PROVIDERS: PCP Internal Medicine; Visit Provider Internal Medicine
DX: I11.0 Hypertensive heart disease with heart failure (principal); I50.9 Heart failure, unspecified; J44.9 Chronic obstructive pulmonary disease, unspecified; E78.5 Hyperlipidemia, unspecified; I65.23 Occlusion and stenosis of bilateral carotid arteries; Z79.899 Other long term (current) drug therapy
CPT/HCPCS: 36415; 80048; 80061; 80076; 82140; 85027

== ENCOUNTER → 2023-05-01 | Outpatient (REF) | payer MEDICARE, MEDICAID, SELFPAY ==
[2023-05-01 10:10] LABS: Valproic Acid (Depakene) Level 59 ug/mL (50-100)
== END ==
LOC: OLS.SANC 05:00
PROVIDERS: PCP Internal Medicine; Visit Provider Internal Medicine
DX: I11.0 Hypertensive heart disease with heart failure (principal); I50.9 Heart failure, unspecified; J44.9 Chronic obstructive pulmonary disease, unspecified; E78.5 Hyperlipidemia, unspecified; I65.23 Occlusion and stenosis of bilateral carotid arteries
CPT/HCPCS: 36415; 80164

== ENCOUNTER → 2023-05-16 | Outpatient (REF) | payer MEDICARE, MEDICAID, SELFPAY ==
[2023-05-16 10:18] LABS: Hemoglobin A1c 5.5 % (3.8-5.6)
== END ==
LOC: OLS.SANC 05:00
PROVIDERS: PCP Internal Medicine; Visit Provider Internal Medicine
DX: E11.9 Type 2 diabetes mellitus without complications (principal); Z79.899 Other long term (current) drug therapy
CPT/HCPCS: 36415; 83036

== ENCOUNTER → 2023-06-06 | Outpatient (REF) | payer MEDICARE, SELFPAY ==
[2023-06-06 08:13] LABS: Mucous, Urine 0 SEEN /hpf (<or=2+); Red Blood Cells-Urine 0 SEEN /hpf (0-5); Squamous Epithelial Cells - UA 0 SEEN /hpf (5-10)
[2023-06-06 08:19] LABS: Color, Urine Yellow (Yellow); Glucose, Dipstick Normal (Normal); Ketone-Dipstick 5 mg/dl (Negative); Leukocyte Esterase-Dipstick 25 /ul (Negative); Nitrite-Dipstick Negative (Negative); Occult Blood-Urine 10 /ul (Negative); Protein-Dipstick Negative (Negative); Urine Bilirubin Dipstick Negative (Negative); Urine Clarity Clear (Clear); Urine Urobilinogen Normal (Normal)
[2023-06-06 08:26] LABS: Bacteria 2+ /hpf (None Seen); White Blood Cells 0-5 SEEN /hpf (0-5)
== END ==
LOC: OLS.SANC 05:00
PROVIDERS: PCP Internal Medicine; Visit Provider Internal Medicine
DX: N39.0 Urinary tract infection, site not specified (principal)
CPT/HCPCS: 81001; 87086

== ENCOUNTER → 2023-06-14 05:00 | Outpatient (REF) | payer MEDICARE, MEDICAID, SELFPAY ==
[2023-06-14 08:48] LABS: Hematocrit 38.6 % (37-47); Hemoglobin 11.5 g/dL (12.0-15.0); Mean Corp Hgb Conc 29.8 g/dL (32-36); Mean Corpuscular Hgb 31.2 pg (27.0-32.0); Mean Corpuscular Volume 104.6 fL (81-99); Mean Platelet Vol. 10.4 fl (6.2-12.0); Platelet Count 262 K/mm3 (150-450); RBC Distribution Width CV 13.7 % (11.6-14.6); RBC Distribution Width SD 53.1 fl (35.1-43.9); Red Blood Count 3.69 M/mm3 (4.2-5.4); White Blood Count 10.1 K/mm3 (4.4-11.0)
[2023-06-14 09:24] LABS: ALB/GLOB Ratio 0.5 RATIO (0.9-2.4); AST(SGOT) 17 U/L (15-37); Alanine Aminotransfer ALT/SGPT 9 U/L (13-56); Albumin, Serum 2.2 g/dL (3.2-5.0); Alkaline Phosphatase 67 U/L (45-117); Anion Gap 6 (5-15); BUN 35 mg/dL (7-18); Calcium,Total 9.2 mg/dL (8.5-10.1); Chloride 112 mmol/L (98-107); Creatinine, Serum 1.06 mg/dL (0.55-1.02); EST Glomerular Filtration Rate 53 mL/min (>60); Est Glom Filt Rate - Afr Amer 65 mL/min (>60); Globulin 4.4 g/dL (2.2-4.2); Glucose 76 mg/dL (74-106); Potassium 5.1 mmol/L (3.5-5.1); Protein, Total 6.6 g/dL (6.4-8.2); Sodium Level 137 mmol/L (136-145); Thyroid Stim Hormone (TSH) 0.61 uIU/mL (0.358-3.74)
== END ==
LOC: OLS.SANC 05:00
PROVIDERS: PCP Internal Medicine; Visit Provider Internal Medicine
DX: I50.9 Heart failure, unspecified; I11.0 Hypertensive heart disease with heart failure; J44.9 Chronic obstructive pulmonary disease, unspecified; E78.5 Hyperlipidemia, unspecified
CPT/HCPCS: 36415; 80053; 84443; 85027

== ENCOUNTER → 2023-06-22 | Outpatient (REF) | payer MEDICARE, MEDICAID, SELFPAY ==
[2023-06-22 08:47] LABS: Hematocrit 32.9 % (37-47); Hemoglobin 10.5 g/dL (12.0-15.0); Mean Corp Hgb Conc 31.9 g/dL (32-36); Mean Corpuscular Hgb 31.4 pg (27.0-32.0); Mean Corpuscular Volume 98.5 fL (81-99); Mean Platelet Vol. 10.1 fl (6.2-12.0); Platelet Count 421 K/mm3 (150-450); RBC Distribution Width CV 13.6 % (11.6-14.6); RBC Distribution Width SD 49.4 fl (35.1-43.9); Red Blood Count 3.34 M/mm3 (4.2-5.4); White Blood Count 13.1 K/mm3 (4.4-11.0)
[2023-06-22 09:11] LABS: ALB/GLOB Ratio 0.5 RATIO (0.9-2.4); AST(SGOT) 18 U/L (15-37); Alanine Aminotransfer ALT/SGPT < 6 U/L (13-56); Albumin, Serum 2.1 g/dL (3.2-5.0); Alkaline Phosphatase 64 U/L (45-117); Anion Gap 7 (5-15); BUN 52 mg/dL (7-18); Calcium,Total 9.5 mg/dL (8.5-10.1); Chloride 108 mmol/L (98-107); Creatinine, Serum 0.96 mg/dL (0.55-1.02); EST Glomerular Filtration Rate 60 mL/min (>60); Est Glom Filt Rate - Afr Amer 72 mL/min (>60); Globulin 4.1 g/dL (2.2-4.2); Glucose 101 mg/dL (74-106); Protein, Total 6.2 g/dL (6.4-8.2); Sodium Level 139 mmol/L (136-145)
== END ==
LOC: OLS.SANC 05:00
PROVIDERS: PCP Internal Medicine; Visit Provider Internal Medicine
DX: R53.83 Other fatigue (principal); Z79.899 Other long term (current) drug therapy
CPT/HCPCS: 36415; 80053; 85027